=== PATIENT | male | born 1950 | race Caucasian/White ===

== ENCOUNTER → 2018-08-01 08:03 | Outpatient (POV) | payer MEDICARE, BC, SELFPAY | PROVIDERS: Visit Provider Dentist | DX: Z00.00 Encounter for general adult medical examination without abnormal findings (principal) ==

== ENCOUNTER 2018-12-05 17:00 | Inpatient (IN) ==
--- NOTE | 2018-12-05 17:35 | Emergency Department Note ---
ED Disposition Clinical Impression: Pneumonia Disposition: Admitted As Inpatient Condition on Discharge: Fair Time of Disposition: 20:30 - Critical Care Critical Care Time: No Attestation: On 12/05/18, the high probability of a clinically significant, sudden or life threatening deterioration of the following system(s) required my full and direct attention, intervention and personal management. The time I documented below is in addition to time spent performing reported procedures but includes the fo llowing listed in this critical care notation. Medical Decision Making - Medical Records Medical records reviewed: Yes: I reviewed the patient's medical records. - Aaron Inquiry Pt receiving controlled substance: No Aaron was queried for this patient: No Vital Signs: 12/05/18 17:04 12/05/18 18:09 12/05/18 20:00 Temperature 97.5 F L Temperature Source Oral Pulse Rate Pulse Rate [Right Radial] 84 77 78 Respiratory Rate 24 18 15 Blood Pressure Blood Pressure [Right Arm] 166/79 H 147/80 H 148/77 H Blood Pressure Mean [Right Arm] 108 102 100 Blood Pressure Source Blood Pressure Source [Right Arm] Automatic Cuff Blood Pressure Position Blood Pressure Position [Right Arm] Sitting 02 Sat by Pulse Oximetry 93 L 94 L 89 L Oxygen Delivery Method Nasal Cannula Nasal Cannula Oxygen Flow Rate (LPM) 4 4 12/05/18 20:43 12/05/18 20:46 Temperature 97.7 F Temperature Source Temporal Artery Scan Pulse Rate 89 Pulse Rate [Right Radial] Respiratory Rate 18 Blood Pressure 151/83 H Blood Pressure [Right Arm] Blood Pressure Mean [Right Arm] Blood Pressure Source Automatic Cuff Blood Pressure Source [Right Arm] Blood Pressure Position Sitting Blood Pressure Position [Right Arm] 02 Sat by Pulse Oximetry 93 L Oxygen Delivery Method Nasal Cannula Nasal Cannula Oxygen Flow Rate (LPM) 4 4 - Lab Data Lab results reviewed: Yes: I reviewed the patient's lab results. Lab Results 12/05/18 17:25: WBC 7.4, RBC 3.61 L, Hgb 11.7 L, Hct 35.8 L, MCV 99.3 H, MCH 32 .4 H, MCHC 32.6, RDW 14.2, Plt Count 387, MPV 6.9 L, Neut % (Auto) 69.6, Lymph % (Auto) 15.6, [place] % (Auto) 10.5 H, Eos % (Auto) 3.9, Baso % (Auto) 0.5, Neut # (Auto) 5.2, Lymph # (Auto) 1.2, [place] # (Auto) 0.8, Eos # (Auto) 0.3, Baso # (A uto) 0.0 12/05/18 17:25: Sodium 136, Potassium 4.3, Chloride 101, Carbon Dioxide 22, Anion Gap 17.3 H, BUN 18, Creatinine 0.88, Estimated Creat Clear 84, Estimated GFR 87, Est GFR ( Amer) 105, Glucose 97, Calcium 8.7, Total Bilirubin 0.9, AST 33, ALT 14, Alkaline Phosphatase 79, Total Protein 7.2, Albumin 2.6 L, Globulin 4.6 H, Albumin/Globulin Ratio 0.6 L 12/05/18 17:25: Lactate 1.2 Result diagrams: 12/08/18 07:05 12/08/18 07:05 Orders (Tests/Meds): ED MEDICATIONS Generic Name Dose Route Start Last Admin Trade Name Freq PRN Reason Stop Dose Admin Acetaminophen 650 mg 12/05/18 21:02 Acetaminophen 325mg Tab PO 01/04/19 21:01 Q4HP PRN As Needed for Fever or Pain Albuterol/Ipratropium 3 ml 12/05/18 21:02 12/09/18 13:47 Duoneb 3ml Neb IH 01/04/19 21:01 3 ml QID LAKE Administration Guaifenesin 1,200 mg 12/08/18 09:00 12/09/18 08:01 Mucinex 600mg Tablet PO 01/07/19 08:59 1,200 mg BID LAKE Administration Levofloxacin/Dextrose 750 mg in 150 mls @ 100 mls/hr 12/06/18 21:00 12/08/18 21:39 Levofloxacin 750mg/150ml Premix IV 12/19/18 20:59 100 mls/hr Q24H LAKE Administration Protocol Piperacillin Sod/Tazobactam 100 mls @ 200 mls/hr 12/06/18 02:30 12/09/18 14:21 Sod 4.5 gm/ Sodium Chloride IV 12/19/18 20:29 200 mls/hr Q6H LAKE Administration Protocol Insulin Human Lispro 0 unit 12/07/18 11:00 12/09/18 11:50 Humalog 100 Units/Ml 3ml Vial (Ssi) SQ 01/06/19 10:59 Not Given ACHS LAKE Protocol Pt's Own Med 100 mg 12/06/18 09:00 12/09/18 08:00 Lorlatinib [Lorbrena PO 01/05/19 08:59 100 mg ] 100 Mg DAILY LAKE Administration Ondansetron HCl 4 mg 12/05/18 21:02 Zofran 4mg/2ml Vial IV 01/04/19 21:01 Q8HP PRN Nausea Sodium Chloride 10 ml 12/05/18 21:02 Saline Flush 10ml Syringe IV 01/04/19 17:16 NEEDED PRN Maintain IV Site Sodium Chloride 3 ml 12/06/18 06:57 Sodium Chloride 3% 15ml Neb IH 01/05/19 06:56 ONCE PRN INDUCE SPUTUM COLLECTION Tramadol HCl 50 mg 12/05/18 22:19 Ultram 50mg Tablet PO 01/04/19 22:18 DAILYP PRN MODERATE PAIN Discontinued Medications Generic Name Dose Route Start Last Admin Trade Name Freq PRN Reason Stop Dose Admin Levofloxacin/Dextrose 750 mg in 150 mls @ 100 mls/hr 12/05/18 20:30 12/05/18 23:01 Levofloxacin 750mg/150ml Premix IV 12/19/18 20:29 100 mls/hr Q24H LAKE Administration Protocol Piperacillin Sod/Tazobactam 100 mls @ 200 mls/hr 12/05/18 20:30 12/05/18 20:28 Sod 4.5 gm/ Sodium Chloride IV 12/19/18 20:29 200 mls/hr Q6H LAKE Administration Protocol Sodium Chloride 1,000 mls @ 125 mls/hr 12/05/18 21:02 12/07/18 00:35 Sod Chlor 0.9% 1000ml Bag IV 01/04/19 21:01 Not Given .Q8H LAKE Ioversol 70 ml 12/05/18 18:42 12/05/18 18:45 Rad-Optiray 350 100ml Vial IV 12/05/18 18:43 70 ml ONCE ONE Administration Methylprednisolone Sodium Succinate 60 mg 12/05/18 21:02 12/06/18 05:55 Methylprednisolone Sod Succinate 40mg Vial IV 01/04/19 21:01 60 mg Q8H LAKE Administration Methylprednisolone Sodium Succinate 60 mg 12/06/18 11:00 12/09/18 02:02 Solu-Medrol 125mg/2ml Vial IV 01/05/19 10:59 60 mg Q8H LAKE Administration Pt's Own Med 2 puff 12/05/18 21:02 12/07/18 08:52 Budesonide/ INHALATION 01/04/19 21:01 Not Given Formoterol Fumarate BID LAKE [Symbicort] 160-4.5 Mcg Inhaler Sodium Chloride 10 ml 12/05/18 17:17 Saline Flush 10ml Syringe IV 01/04/19 17:16 NEEDED PRN Maintain IV Site Sodium Chloride 40 ml 12/05/18 18:42 12/05/18 18:45 Rad-Ns 50ml Vial IV 12/05/18 18:43 40 ml ONCE ONE Administration Sodium Chloride 10 ml 12/05/18 18:42 12/05/18 18:45 Rad-Saline Flush 10ml Syringe IV 12/05/18 18:43 10 ml ONCE ONE Administration ORDERS Category Date Time Status Blood Culture Stat Micro 12/05/18 17:25 Results EKG Request [ECG Request by Dr/Nse] Stat Y 12/05/18 18:40 Stop Req General Adult HPI - General Chief complaint: Shortness of Breath/Dyspnea Stated complaint: shortness of breath Time Seen by Provider: 12/05/18 17:32 Mode of Arrival: EMS Limitations: No Limitations Description of Symptoms (Recalled from ER Triage Doc. by RN): pt states he was having increasing shortness of breath on exertion today. pt states he has cancer and is not on home oxygen. per stone finisher pt room air oxygen was 79%. - History of Present Illness HPI narrative: Cancer patient, low sats and dyspnea worsening over two weeks. Has completed chemo-radiation. He's not sure of tissue pathology of his primary. Has never required home O2 - Related Data Home Medications Medication Instructions Recorded Confirmed Budesonide/Formoterol Fumarate 2 puff INHALATION BID 12/05/18 12/06/18 [Symbicort 160-4.5 Mcg Inhaler] Lorlatinib [Lorbrena] 100 mg PO DAILY 12/05/18 12/06/18 RX: Tramadol HCl [Tramadol 50mg 50 mg PO DAILYP PRN 12/05/18 12/06/18 Tab] Allergies Allergy/AdvReac Type Severity Reaction Status Date / Time No Known Allergies Allergy Verified 12/05/18 17:10 [facility] History - Hepatitis A Screen Drug use history?: No High risk sexual behaviors?: No History of sexually transmitted infection?: No Currently employed?: No Childcare worker?: No Do you have indoor plumbing?: Yes Do you have electricity?: Yes Attestation statement:: This patient has been screened for Hepatitis A risk factors. I have reviewed the patient's past medical history: Yes Medical History: Denies:: Cancer, Diabetes Mellitus Type 1, Diabetes Mellitus Type 2, MRSA Amputation: No Fractures: No - Social History Smoking Status: Never smoker Alcohol Intake: never Occupational Status: retired - Psychiatric History Expresses thoughts of harming self/others: None Suicide Plan Description: No Plan ROS Obtained: Yes All systems reviewed & no additional complaints - Constitutional Constitutional: Denies chills, Denies fever(s) - Eyes Eyes: Reports system reviewed and no additional complaints, except as docu, Denies change in vision - ENT Ears, Nose, Mouth, and Throat: Reports system reviewed and no additional complaints, except as docu, Denies sore throat, Denies throat swelling - Cardiovascular Cardiovascular: Reports system reviewed and no additional complaints, except as docu, Denies chest pain, Denies chest pain at rest, Reports dyspnea - Respiratory Respiratory: Yes system reviewed and no additional complaints, except as docu, No chest congestion, No cough, Yes dyspnea, Yes dyspnea on exertion - Gastrointestinal Gastrointestingal: Reports: system reviewed and no additional complaints, except as docu. Denies: abdominal pain, diarrhea, nausea, vomiting - Musculoskeletal Musculoskeletal: Denies joint stiffness, Denies joint swelling, Denies limited range of motion, Denies muscle weakness, Denies stiffness, Denies tingling - Integumentary/Breasts Skin/Breast: Denies rash - Neurologic Neurologic: Reports system reviewed and no additional complaints, except as docu, Denies headache(s), Denies loss of vision, Denies tingling/numbness/burning sensations Physical Exam - General General appearance: alert, in distress, other (mildly dyspneic lying down) - Head Head exam: atraumatic, normocephalic, normal inspection - Eye Eye exam: Present: normal appearance, PERRL, EOMI - ENT ENT exam: Present: normal exam, normal oropharynx, mucous membranes moist, TM's normal bilaterally, normal external ear exam - Neck Neck exam: Present: normal inspection, full ROM, trachea midline. Absent: meningismus, lymphadenopathy - Chest Chest inspection: Present: normal inspection, symmetric chest wall rise. Absent: tenderness - Respiratory Respiratory exam: Present: normal lung sounds bilaterally, respiratory distress (mild). Absent: wheezes, accessory muscle use, prolonged expiratory phase - Cardiovascular Cardiovascular exam: Present: regular rate, normal rhythm. Absent: JVD - Abdominal Exam Abdominal exam: Present: soft, normal bowel sounds. Absent: distention, tenderness, guarding - Extremities Exam Extremities exam: Present: normal inspection, full ROM, normal capillary refill. Absent: calf tenderness - Back Exam Back exam: Present: normal inspection. Absent: tenderness - Neurological Exam Neurological exam: Present: alert, oriented X3 - Psychiatric Psychiatric exam: Present: normal affect, normal mood
[2018-12-05 17:46] LABS: Basophils % 0.5 % (0.1-2.0); Eosinophils # 0.3 K/mm3 (0.0-0.4); Eosinophils % 3.9 % (0.1-12.0); Hematocrit 35.8 % (42.0-52.0); Hemoglobin 11.7 g/dL (14.1-18.0); Lymphocytes # 1.2 K/mm3 (0.7-4.5); Lymphocytes % 15.6 % (10-50); Mean Corpuscular HGB Conc 32.6 g/dL (31.8-35.4); Mean Corpuscular Hemoglobin 32.4 pg (27.0-31.2); Mean Corpuscular Volume 99.3 fl (80-94); Mean Platelet Volume 6.9 fl (7.4-10.4); Monocytes # 0.8 K/mm3 (0.1-1.0); Monocytes % 10.5 % (1.7-9.3); Neutrophils # 5.2 K/mm3 (1.8-7.8); Neutrophils % 69.6 % (37.0-80.0); Platelet Count 387 K/mm3 (142-424); Red Blood Count 3.61 M/mm3 (4.60-6.20); Red Cell Distribution Width 14.2 % (11.5-17.5); White Blood Count 7.4 K/mm3 (4.8-10.8)
[2018-12-05 18:01] LABS: Albumin Level 2.6 gm/dL (3.4-5.0); Albumin/Globulin Ratio 0.6 (1.1-1.8); Anion Gap 17.3 mEq/L (5-15); Bilirubin,Total 0.9 mg/dL (0.2-1.0); Calcium 8.7 mg/dL (8.5-10.1); Globulin 4.6 gm/dl (1.3-3.2); Potassium 4.3 mmoL/L (3.5-5.1); Total Protein,Serum 7.2 gm/dL (6.4-8.2)
[2018-12-06 07:31] LABS: Basophils % 0.1 % (0.1-2.0); Eosinophils % 0.2 % (0.1-12.0); Hematocrit 35.7 % (42.0-52.0); Hemoglobin 11.2 g/dL (14.1-18.0); Lymphocytes # 0.4 K/mm3 (0.7-4.5); Lymphocytes % 9.9 % (10-50); Mean Corpuscular HGB Conc 31.4 g/dL (31.8-35.4); Mean Corpuscular Hemoglobin 32.5 pg (27.0-31.2); Mean Corpuscular Volume 103.5 fl (80-94); Mean Platelet Volume 6.9 fl (7.4-10.4); Monocytes # 0.1 K/mm3 (0.1-1.0); Monocytes % 1.7 % (1.7-9.3); Neutrophils # 3.4 K/mm3 (1.8-7.8); Neutrophils % 88.1 % (37.0-80.0); Platelet Count 355 K/mm3 (142-424); Red Blood Count 3.45 M/mm3 (4.60-6.20); Red Cell Distribution Width 14.1 % (11.5-17.5); White Blood Count 3.8 K/mm3 (4.8-10.8)
--- NOTE | 2018-12-06 07:31 | Pharmacy Consult Notes ---
[facility] Pharmacy VTE Monitoring - Patient Demographics Admission date: 12/06/18 Report Date: 12/06/18 Time: 07:31 Allergies/Adverse Reactions: Patient Allergies No Known Allergies Allergy (Verified 12/05/18 17:10) Height: 1.85 m Weight: 78.953 kg Patient Problems: Current Active Problems Pneumonia (Acute) - VTE Risk Labs: VTE Related Lab Results Hgb 11.7 g/dL (14.1-18.0) L 12/05/18 17:25 Hct 35.8 % (42.0-52.0) L 12/05/18 17:25 Plt Count 387 K/mm3 (142-424) 12/05/18 17:25 BUN 18 mg/dL (7-18) 12/05/18 17:25 Creatinine 0.88 mg/dL (0.70-1.30) 12/05/18 17:25 Estimated Creat Clear 84 mL/min (50-200) 12/05/18 17:25 Was VTE Risk Assessment Performed: Yes VTE Score: 6 VTE Risk Level: Moderate Risk Clinical Trial Participant: No - Prophylaxis VTE Prophylaxis Ordered?: Yes Types of VTE Prophylaxis: TEDS Knee High
[2018-12-06 07:37] LABS: Anion Gap 15.2 mEq/L (5-15); Calcium 8.7 mg/dL (8.5-10.1); Potassium 4.2 mmoL/L (3.5-5.1)
--- NOTE | 2018-12-06 07:37 | History & Physical Report ---
*Admission Date: 12/06/18 *Chief complaint: Shortness of breath *History of present illness: 68-year-old male with metastatic cancer of unknown primary presented to the emergency department with at least 2 weeks of progressive shortness of breath. Patient denies fevers, chills. He admits he has had a minor cough with yellowish brown sputum production. Apparently he had been seen in the office about 48 hours prior to presentation and given a Symbicort inhaler to use. Patient has metastatic cancer with unknown primary although over the course of his disease he has been treated as if lung cancer is the primary. He has been on various oral and intravenous chemotherapies. He admits more recently he is lacked energy although responds briefly to vitamin B12 injections. His oncologist is Dr. Sanchez. [facility] History I have reviewed the patient's past medical history: Yes Medical History: Denies:: Cancer, Diabetes Mellitus Type 1, Diabetes Mellitus Type 2, Internal Pacemaker, MRSA *Have you ever received a pneumonia vaccine?: Yes (3 years ago) *Have you received a flu vaccine this season?: Yes Other Surgeries: No: Pacemaker Amputation: No Fractures: No - *Social History Educational Level: Completed College Smoking Status: Never smoker Alcohol Intake: never *Occupational Status:: retired Housing: house *Travel in the last 8 weeks: None - Psychiatric History Expresses thoughts of harming self/others: None Suicide Plan Description: No Plan Family Hx:: Non-contributory Review of Systems - Review of Systems Review of systems:: pertinent systems reviewed and negative unless documented below - Constitutional Reports fatigue, Denies body ache(s), Denies chills, Denies fever(s) - ENT Denies abnormal hearing - *Cardiovascular Denies chest pain, Denies chest pain at rest, Denies chest pain with activity - *Respiratory Reports change in phlegm color, Reports cough, Reports shortness of breath, Reports shortness of breath with activity - *Gastrointestinal Denies abdominal pain, Denies belching, Denies bloating - *Genitourinary Denies difficulty urinating - *Neurologic Denies headache(s), Denies loss of vision, Denies tingling/numbness/burning sensations, Denies tingling Meds Home Medications Medication Instructions Recorded Confirmed Type Budesonide/Formoterol Fumarate 2 puff INHALATION BID 12/05/18 12/06/18 History [Symbicort 160-4.5 Mcg Inhaler] Lorlatinib [Lorbrena] 100 mg PO DAILY 12/05/18 12/06/18 History Tramadol HCl [Tramadol 50mg 50 mg PO DAILYP PRN 12/05/18 12/06/18 History Tab] Allergies Allergy/AdvReac Type Severity Reaction Status Date / Time No Known Allergies Allergy Verified 12/05/18 17:10 Exam Vital signs and Labs for Last 24 Hours: Temp Pulse Resp BP Pulse Ox 97.9 F 88 20 109/51 L 91 L 12/06/18 04:00 12/06/18 06:17 12/06/18 04:00 12/06/18 04:00 12/06/18 06:17 Laboratory Results - last 24 hr 12/05/18 17:25: WBC 7.4, RBC 3.61 L, Hgb 11.7 L, Hct 35.8 L, MCV 99.3 H, MCH 32.4 H, MCHC 32.6, RDW 14.2, Plt Count 387, MPV 6.9 L, Neut % (Auto) 69.6, Lymph % (Auto) 15.6, [place] % (Auto) 10.5 H, Eos % (Auto) 3.9, Baso % (Auto) 0.5, Neut # (Auto) 5.2, Lymph # (Auto) 1.2, [place] # (Auto) 0.8, Eos # (Auto) 0.3, Baso # (Auto) 0.0 12/05/18 17:25: Sodium 136, Potassium 4.3, Chloride 101, Carbon Dioxide 22, Anion Gap 17.3 H, BUN 18, Creatinine 0.88, Estimated Creat Clear 84, Estimated GFR 87, Est GFR ( Amer) 105, Glucose 97, Calcium 8.7, Total Bilirubin 0.9, AST 33, ALT 14, Alkaline Phosphatase 79, Total Protein 7.2, Albumin 2.6 L, Globulin 4.6 H, Albumin/Globulin Ratio 0.6 L 12/05/18 17:25: Lactate 1.2 I & O for Last 24 hours: Intake & Output 12/03/18 12/04/18 12/05/18 12/06/18 11:59 11:59 11:59 11:59 Intake Total 240 / 240 Balance 240 / 240 Weight 174 lb 1 oz Narrative: Patient appears comfortable sitting up in bed. ENT exam is normal. Neck is without jugular venous distention or lymphadenopathy. Lungs have bibasilar rales left more audible than right. Heart has a regular rate and rhythm. Abdomen is soft and nontender. Neurologically motor and sensation function is intact. Cranial nerves are grossly intact. Skin is warm and without lesions Assessment and Plan (1) Disseminated malignancy of unknown primary Current visit: Yes Status: Acute Category: Medical Code(s): C80.0 - Disseminated malignant neoplasm, unspecified; C80.1 - Malignant (primary) neoplasm, unspecified (2) Pneumonia Current visit: Yes Status: Acute Category: Medical Code(s): J18.9 - Pneumonia, unspecified organism - Assessment and plan all Dx Assessment and Plan for all problems:: Patient has been started on broad-spectrum antibiotics. Incentive spirometer will be added. Encourage ambulation as tolerated
[2018-12-06 11:07] LABS: Lymphocytes % 8 % (10-50); Monocytes % 1 % (2-9); Neutrophils % 91 % (42-76); Total Cells Counted 100
[2018-12-06 11:08] LABS: Macrocytosis 1+
[2018-12-07 07:04] LABS: Hematocrit 38.3 % (42.0-52.0); Hemoglobin 12.3 g/dL (14.1-18.0); Lymphocytes # 0.8 K/mm3 (0.7-4.5); Lymphocytes % 6.1 % (10-50); Mean Corpuscular HGB Conc 32.1 g/dL (31.8-35.4); Mean Corpuscular Hemoglobin 32.7 pg (27.0-31.2); Mean Corpuscular Volume 102.1 fl (80-94); Mean Platelet Volume 7.3 fl (7.4-10.4); Monocytes # 0.5 K/mm3 (0.1-1.0); Monocytes % 3.3 % (1.7-9.3); Neutrophils # 12.3 K/mm3 (1.8-7.8); Neutrophils % 90.5 % (37.0-80.0); Platelet Count 462 K/mm3 (142-424); Red Blood Count 3.75 M/mm3 (4.60-6.20); White Blood Count 13.5 K/mm3 (4.8-10.8)
--- NOTE | 2018-12-07 07:17 | Progress Note ---
Internal Medicine - PN: Subj *Date: 12/07/18 *Time: 07:14 Interval history: Patient has no specific complaints. He did not sleep well due to sleeping in an unfamiliar bed. He believes his cough is becoming a little more productive. He is still not had any fevers or chills. O2 sats remained in the low to mid 90s on 4 L of oxygen via nasal cannula. He is using the incentive spirometer regularly. He continues to have shortness of breath on exertion although admits at rest he is feeling a little bit more comfortable Exam Vital signs and Labs for Last 24 Hours: Temp Pulse Resp BP Pulse Ox 97.7 F 84 18 117/73 93 L 12/07/18 04:00 12/07/18 06:43 12/07/18 04:00 12/07/18 04:00 12/07/18 06:43 Laboratory Results - last 24 hr 12/06/18 06:55: WBC 3.8 L D, RBC 3.45 L, Hgb 11.2 L, Hct 35.7 L, MCV 103.5 H, MCH 32.5 H, MCHC 31.4 L, RDW 14.1, Plt Count 355, MPV 6.9 L, Neut % (Auto) 88.1 H, Lymph % (Auto) 9.9 L, [place] % (Auto) 1.7, Eos % (Auto) 0.2, Baso % (Auto) 0.1, Neut # (Auto) 3.4, Lymph # (Auto) 0.4 L, [place] # (Auto) 0.1, Eos # (Auto) 0.0, Baso # (Auto) 0.0, Total Counted 100, Neutrophils % (Manual) 91 H, Lymphocytes % (Manual) 8 L, Monocytes % (Manual) 1 L, Platelet Estimate Normal, Macrocytosis 1+ 12/06/18 06:55: Sodium 135 L, Potassium 4.2, Chloride 102, Carbon Dioxide 22, Anion Gap 15.2 H, BUN 16, Creatinine 0.97, Estimated Creat Clear 81, Estimated GFR 77, Est GFR ( Amer) 94, Glucose 254 H D, Calcium 8.7 12/07/18 06:48: WBC 13.5 H D, RBC 3.75 L, Hgb 12.3 L, Hct 38.3 L, MCV 102.1 H, MCH 32.7 H, MCHC 32.1, RDW 14.0, Plt Count 462 H D, MPV 7.3 L, Neut % (Auto) 90 .5 H, Lymph % (Auto) 6.1 L, [place] % (Auto) 3.3, Eos % (Auto) 0.0 L, Baso % (Auto) 0.0 L, Neut # (Auto) 12.3 H, Lymph # (Auto) 0.8, [place] # (Auto) 0.5, Eos # (Auto) 0.0, Baso # (Auto) 0.0 I & O for Last 24 hours: Intake & Output 12/04/18 12/05/18 12/06/18 12/07/18 11:59 11:59 11:59 11:59 Intake Total 960 / 960 1110 / 1110 Balance 960 / 960 1110 / 1110 Weight 174 lb 1 oz 174 lb 0.985 oz Microbiology Reports for the Last 24 Hours: Microbiology 12/05/18 23:17 Sputum - Expectorated Sputum Gram Stain - Final Narrative: He does not appear to be in any distress. Although with conversation he does become a little dyspneic. Heart is slightly tachycardic this morning. Lungs are clear with only faint rales at the left lung base Assessment and Plan (1) Disseminated malignancy of unknown primary Current visit: Yes Status: Acute Category: Medical Code(s): C80.0 - Disseminated malignant neoplasm, unspecified; C80.1 - Malignant (primary) neoplasm, unspecified (2) Pneumonia Current visit: Yes Status: Acute Category: Medical Code(s): J18.9 - Pneumonia, unspecified organism Repeat chest x-ray today (3) Hyperglycemia Current visit: Yes Status: Acute Category: Medical Code(s): R73.9 - Hyperglycemia, unspecified Begin regular fingersticks
[2018-12-07 07:28] LABS: Lymphocytes % 4 % (10-50); Macrocytosis 1+; Monocytes % 3 % (2-9); Neutrophils % 93 % (42-76); Total Cells Counted 100
[2018-12-08 07:16] LABS: Basophils % 0.1 % (0.1-2.0); Hemoglobin 11.4 g/dL (14.1-18.0); Lymphocytes # 0.7 K/mm3 (0.7-4.5); Lymphocytes % 6.1 % (10-50); Mean Corpuscular HGB Conc 31.7 g/dL (31.8-35.4); Mean Corpuscular Hemoglobin 32.2 pg (27.0-31.2); Mean Corpuscular Volume 101.3 fl (80-94); Mean Platelet Volume 7.7 fl (7.4-10.4); Monocytes # 0.3 K/mm3 (0.1-1.0); Monocytes % 3.1 % (1.7-9.3); Neutrophils # 9.6 K/mm3 (1.8-7.8); Neutrophils % 90.7 % (37.0-80.0); Platelet Count 400 K/mm3 (142-424); Red Blood Count 3.56 M/mm3 (4.60-6.20); White Blood Count 10.6 K/mm3 (4.8-10.8)
[2018-12-08 07:24] LABS: Calcium 9.1 mg/dL (8.5-10.1); Lymphocytes % 8 % (10-50); Neutrophils % 88 % (42-76); Total Cells Counted 100
[2018-12-08 07:25] LABS: Macrocytosis 2+
--- NOTE | 2018-12-08 07:35 | Progress Note ---
Internal Medicine - PN: Subj *Date: 12/08/18 *Time: 07:32 Interval history: Patient reports feeling better while at rest. Short trips to the bathroom still leave the patient exhausted and quite dyspneic. On 3 L of oxygen he is satting anywhere from the very low 90s to the mid 80s. Sputum has been described as rust colored. Patient's appetite is good. Exam Vital signs and Labs for Last 24 Hours: Temp Pulse Resp BP Pulse Ox 97.0 F L 88 20 123/73 81 L 12/08/18 04:00 12/08/18 06:45 12/08/18 04:00 12/08/18 04:00 12/08/18 06:45 Laboratory Results - last 24 hr 12/07/18 11:27: POC Glucose 135 H 12/07/18 16:47: POC Glucose 185 H 12/07/18 20:02: POC Glucose 140 H 12/08/18 06:21: POC Glucose 129 H 12/08/18 07:05: WBC 10.6, RBC 3.56 L, Hgb 11.4 L, Hct 36.0 L, MCV 101.3 H, MCH 32.2 H, MCHC 31.7 L, RDW 14.0, Plt Count 400, MPV 7.7, Neut % (Auto) 90.7 H, Lymph % (Auto) 6.1 L, [place] % (Auto) 3.1, Eos % (Auto) 0.0 L, Baso % (Auto) 0.1, Neut # (Auto) 9.6 H, Lymph # (Auto) 0.7, [place] # (Auto) 0.3, Eos # (Auto) 0.0, Baso # (Auto) 0.0, Total Counted 100, Neutrophils % (Manual) 88 H, Band Neutrophils % 4.0, Lymphocytes % (Manual) 8 L, Hypersegmented Neuts 2+, Platelet Estimate Normal, Macrocytosis 2+ 12/08/18 07:05: Sodium 140, Potassium 4.0, Chloride 106, Carbon Dioxide 22, Anion Gap 16.0 H, BUN 15, Creatinine 0.99, Estimated Creat Clear 81, Estimated GFR 76, Est GFR ( Amer) 92, Glucose 146 H, Calcium 9.1 I & O for Last 24 hours: Intake & Output 12/05/18 12/06/18 12/07/18 12/08/18 11:59 11:59 11:59 11:59 Intake Total 960 / 960 1620 / 1620 1390 / 1390 Balance 960 / 960 1620 / 1620 1390 / 1390 Weight 174 lb 1 oz 174 lb 0.985 oz Microbiology Reports for the Last 24 Hours: Microbiology 12/05/18 23:17 Sputum - Expectorated Sputum Gram Stain - Final 12/05/18 23:17 Sputum - Expectorated Sputum Sputum Culture - Final Normal Respiratory [place] 12/05/18 17:25 Blood Blood Culture - Preliminary NO GROWTH AFTER 48 HOURS 12/05/18 17:25 Blood Blood Culture - Preliminary NO GROWTH AFTER 48 HOURS Radiology Reports for the Last 24 Hours: Chest x-ray shown improvement in infiltrates on the left side with similar appearing infiltrates on the right side compared to admission Narrative: He looks comfortable while seated in bed. The mild conversational dyspnea that was present yesterday is not present today. Lung exam reveals diffuse rales heard anteriorly and posteriorly from the mid chest to the bases. Heart has a regular rate and rhythm Assessment and Plan (1) Pneumonia Current visit: Yes Status: Acute Category: Medical Code(s): J18.9 - Pneumonia, unspecified organism Sputum culture is negative. Blood cultures are negative. Patient is still requiring 3-4 L of oxygen via nasal cannula and is quite weak. Continue IV antibiotics. Encourage patient to ambulate a little bit more today. Continue nebs. Will add on some Mucinex (2) Disseminated malignancy of unknown primary Current visit: Yes Status: Acute Category: Medical Code(s): C80.0 - Disseminated malignant neoplasm, unspecified; C80.1 - Malignant (primary) neoplasm, unspecified (3) Hyperglycemia Current visit: Yes Status: Acute Category: Medical Code(s): R73.9 - Hyperglycemia, unspecified
--- NOTE | 2018-12-09 07:06 | Progress Note ---
Internal Medicine - PN: Subj *Date: 12/09/18 *Time: 07:04 Interval history: Patient reports feeling about the same as he did 24 hours ago. He continues to have cough with a sputum described as creamy mixed with occasional blood. He still gets short of breath with ambulation to the bathroom and sometimes even moving around in the bed. He is maintaining his O2 sats in the low 90s on 3 L of oxygen. Exam Vital signs and Labs for Last 24 Hours: Temp Pulse Resp BP Pulse Ox 97.9 F 90 20 130/74 89 L 12/09/18 03:48 12/09/18 05:56 12/09/18 03:48 12/09/18 03:48 12/09/18 05:56 Laboratory Results - last 24 hr 12/08/18 07:05: WBC 10.6, RBC 3.56 L, Hgb 11.4 L, Hct 36.0 L, MCV 101.3 H, MCH 32.2 H, MCHC 31.7 L, RDW 14.0, Plt Count 400, MPV 7.7, Neut % (Auto) 90.7 H, Lymph % (Auto) 6.1 L, [place] % (Auto) 3.1, Eos % (Auto) 0.0 L, Baso % (Auto) 0.1, Neut # (Auto) 9.6 H, Lymph # (Auto) 0.7, [place] # (Auto) 0.3, Eos # (Auto) 0.0, Baso # (Auto) 0.0, Total Counted 100, Neutrophils % (Manual) 88 H, Band Neutrophils % 4.0, Lymphocytes % (Manual) 8 L, Hypersegmented Neuts 2+, Platelet Estimate Normal, Macrocytosis 2+ 12/08/18 07:05: Sodium 140, Potassium 4.0, Chloride 106, Carbon Dioxide 22, Anion Gap 16.0 H, BUN 15, Creatinine 0.99, Estimated Creat Clear 81, Estimated GFR 76, Est GFR ( Amer) 92, Glucose 146 H, Calcium 9.1 12/08/18 11:27: POC Glucose 244 H 12/08/18 16:49: POC Glucose 136 H 12/08/18 20:39: POC Glucose 170 H 12/09/18 06:16: POC Glucose 111 H I & O for Last 24 hours: Intake & Output 12/06/18 12/07/18 12/08/18 12/09/18 11:59 11:59 11:59 11:59 Intake Total 960 / 960 1620 / 1620 2019 830 / 830 Balance 960 / 960 1620 / 1620 2019 830 / 830 Weight 174 lb 1 oz 174 lb 0.985 oz Microbiology Reports for the Last 24 Hours: Microbiology 12/05/18 23:17 Sputum - Expectorated Sputum Gram Stain - Final 12/05/18 23:17 Sputum - Expectorated Sputum Sputum Culture - Final Normal Respiratory Alba Narrative: This morning he looks well. On lung exam he is diminished anteriorly with bibasilar rales. Heart has a regular rate and rhythm Assessment and Plan (1) Pneumonia Current visit: Yes Status: Acute Category: Medical Code(s): J18.9 - Pneumonia, unspecified organism (2) Disseminated malignancy of unknown primary Current visit: Yes Status: Acute Category: Medical Code(s): C80.0 - Disseminated malignant neoplasm, unspecified; C80.1 - Malignant (primary) neoplasm, unspecified (3) Hyperglycemia Current visit: Yes Status: Acute Category: Medical Code(s): R73.9 - Hyperglycemia, unspecified - Assessment and plan all Dx Assessment and Plan for all problems:: Repeat chest x-ray today. Had a discussion with the patient as I do think it will take some time for him to recover from this illness. If chest x-ray showing improvement in that right lung we will begin discussion of discharge plan. If right lung remains unchanged will consult Dr. Jimenez for tomorrow
--- NOTE | 2018-12-09 08:24 | Progress Note ---
Internal Medicine - PN: Subj *Date: 12/09/18 *Time: 08:24 Exam Vital signs and Labs for Last 24 Hours: Temp Pulse Resp BP Pulse Ox 97.9 F 90 20 130/74 89 L 12/09/18 03:48 12/09/18 05:56 12/09/18 03:48 12/09/18 03:48 12/09/18 05:56 Laboratory Results - last 24 hr 12/08/18 11:27: POC Glucose 244 H 12/08/18 16:49: POC Glucose 136 H 12/08/18 20:39: POC Glucose 170 H 12/09/18 06:16: POC Glucose 111 H I & O for Last 24 hours: Intake & Output 12/06/18 12/07/18 12/08/18 12/09/18 23:59 23:59 23:59 23:59 Intake Total 1830 / 1830 1940 / 1940 1310 / 1310 350 / 350 Balance 1830 / 1830 1940 / 1940 1310 / 1310 350 / 350 Weight 78.953 kg Microbiology Reports for the Last 24 Hours: Microbiology 12/05/18 23:17 Sputum - Expectorated Sputum Gram Stain - Final 12/05/18 23:17 Sputum - Expectorated Sputum Sputum Culture - Final Normal Respiratory Alba Assessment and Plan (1) Pneumonia Current visit: Yes Status: Acute Category: Medical Code(s): J18.9 - Pneumonia, unspecified organism (2) Disseminated malignancy of unknown primary Current visit: Yes Status: Acute Category: Medical Code(s): C80.0 - Disseminated malignant neoplasm, unspecified; C80.1 - Malignant (primary) neoplasm, unspecified (3) Hyperglycemia Current visit: Yes Status: Acute Category: Medical Code(s): R73.9 - Hyperglycemia, unspecified The patient's infection will respond to the chosen ABx?: Yes Is the patient receiving the right drug, dose, and route?: Yes Could a more targeted ABx be ordered?: No
--- NOTE | 2018-12-10 07:15 | Progress Note ---
Internal Medicine - PN: Subj *Date: 12/10/18 *Time: 07:13 Interval history: Patient had a rough night. He has developed pretty significant nasal congestion and a sore throat. The nasal congestion makes it difficult to use the nasal cannula and he is mouth breathing. This is leading to a decrease in his oxygen sats that dipped to the mid 60s with ambulating to the bathroom. His chest x- ray yesterday showed continued improvement on the left but very little change in the right lung. Exam Vital signs and Labs for Last 24 Hours: Temp Pulse Resp BP Pulse Ox 97.7 F 84 22 126/68 88 L 12/10/18 04:00 12/10/18 05:41 12/10/18 04:00 12/10/18 04:00 12/10/18 05:41 Laboratory Results - last 24 hr 12/09/18 11:27: POC Glucose 100 12/09/18 16:53: POC Glucose 101 12/09/18 21:06: POC Glucose 80 12/10/18 05:13: POC Glucose 88 I & O for Last 24 hours: Intake & Output 12/07/18 12/08/18 12/09/18 12/10/18 11:59 11:59 11:59 11:59 Intake Total 1620 / 1620 2019 1460 / 1460 830 / 830 Balance 1620 / 1620 2019 1460 / 1460 830 / 830 Weight 174 lb 0.985 oz 188 lb 0.869 oz Narrative: Patient looks discouraged this morning. Oropharynx reveals some thrush. Neck is without lymphadenopathy. Lung exam reveals fair aeration throughout all lung reynolds with continued rales in the bases right greater than left this morning Assessment and Plan (1) Pneumonia Current visit: Yes Status: Acute Category: Medical Code(s): J18.9 - Pneumonia, unspecified organism (2) Disseminated malignancy of unknown primary Current visit: Yes Status: Acute Category: Medical Code(s): C80.0 - Disseminated malignant neoplasm, unspecified; C80.1 - Malignant (primary) neoplasm, unspecified (3) Hyperglycemia Current visit: Yes Status: Acute Category: Medical Code(s): R73.9 - Hyperglycemia, unspecified - Assessment and plan all Dx Assessment and Plan for all problems:: 1. Based on his exam the patient seems to be improving. Based on the way he feels he is not improving as quickly as his exam would suggest. I am going to add vancomycin to see if that can help with the right lung. He will also be ordered Mucomyst neb to see if that can help with sputum clearance. 2. Nystatin for thrush 3. Ordered Chloraseptic's for his sore throat as well as Afrin nasal spray for his nasal congestion.
--- NOTE | 2018-12-10 08:25 | Pharmacy Consult Notes ---
- Pharmacy Consult Date: 12/10/18 Time: 08:23 Referring provider: DR. CASTRO Reason for Consult:: VANCOMYCIN DOSING Allergies and ADEs:: Allergies Allergy/AdvReac Type Severity Reaction Status Date / Time No Known Allergies Allergy Verified 12/05/18 17:10 Home Medications:: Home Medications Medication Instructions Recorded Confirmed Type Budesonide/Formoterol Fumarate 2 puff INHALATION BID 12/05/18 12/06/18 History [Symbicort 160-4.5 Mcg Inhaler] Lorlatinib [Lorbrena] 100 mg PO DAILY 12/05/18 12/06/18 History Tramadol HCl [Tramadol 50mg 50 mg PO DAILYP PRN 12/05/18 12/06/18 History Tab] Height: 1.85 m Weight: 85.3 kg Laboratory Results:: Laboratory Results - last 24 hr 12/09/18 11:27: POC Glucose 100 12/09/18 16:53: POC Glucose 101 12/09/18 21:06: POC Glucose 80 12/10/18 05:13: POC Glucose 88 Medical History: Denies:: Cancer, Diabetes Mellitus Type 1, Diabetes Mellitus Type 2, Internal Pacemaker, MRSA Assessment and Plan (1) Pneumonia Current visit: Yes Status: Acute Category: Medical Code(s): J18.9 - Pneumonia, unspecified organism (2) Disseminated malignancy of unknown primary Current visit: Yes Status: Acute Category: Medical Code(s): C80.0 - Disseminated malignant neoplasm, unspecified; C80.1 - Malignant (primary) neoplasm, unspecified (3) Hyperglycemia Current visit: Yes Status: Acute Category: Medical Code(s): R73.9 - Hyperglycemia, unspecified - Assessment and plan all Dx Assessment and Plan for all problems:: BASED ON PATIENT FACTORS, RECOMMEND VANCOMYCIN 1500 MG IV Q12H. WILL OBTAIN VANCOMYCIN TROUGH LEVEL PRIOR TO 4TH DOSE. PHARMACY WILL FOLLOW DAILY AND ADJUST APPROPRIATE.
--- NOTE | 2018-12-11 07:26 | Progress Note ---
Internal Medicine - PN: Subj *Date: 12/11/18 *Time: 07:25 Interval history: Patient's complaint this morning is of sinus congestion and pressure which she feels like it affects his ability to breathe through his nose and get quality oxygen via the cannula. He continues to have cough and now his sputum is bloody. He also has a very sore throat this morning. He has not however was better than the previous night. He has ambulated very little. Exam Vital signs and Labs for Last 24 Hours: Temp Pulse Resp BP Pulse Ox 98.2 F 88 17 141/73 H 87 L 12/11/18 04:00 12/11/18 05:51 12/11/18 04:00 12/11/18 04:00 12/11/18 05:51 Laboratory Results - last 24 hr 12/10/18 11:04: POC Glucose 97 12/10/18 16:36: POC Glucose 111 H 12/10/18 20:41: POC Glucose 108 12/11/18 06:15: POC Glucose 114 H I & O for Last 24 hours: Intake & Output 12/08/18 12/09/18 12/10/18 12/11/18 11:59 11:59 11:59 11:59 Intake Total 2019 1460 / 1460 1460 / 1460 2500 / 2500 Output Total 700 / 700 1700 / 1700 Balance 2019 1460 / 1460 760 / 760 800 / 800 Weight 188 lb 0.869 oz Microbiology Reports for the Last 24 Hours: Microbiology 12/05/18 17:25 Blood Blood Culture - Final NO GROWTH AFTER 5 DAYS 12/05/18 17:25 Blood Blood Culture - Final NO GROWTH AFTER 5 DAYS Narrative: He is in no distress and looks more comfortable than he did yesterday morning. Oropharynx is not inflamed and thrush is improved. Neck is without lymphadenopathy. Lungs continue to have rales on the right with faint rales on the left. He has fair aeration. Breath sounds are distant anteriorly. Assessment and Plan (1) Pneumonia Current visit: Yes Status: Acute Category: Medical Code(s): J18.9 - Pneumonia, unspecified organism (2) Disseminated malignancy of unknown primary Current visit: Yes Status: Acute Category: Medical Code(s): C80.0 - Disseminated malignant neoplasm, unspecified; C80.1 - Malignant (primary) neoplasm, unspecified (3) Hyperglycemia Current visit: Yes Status: Acute Category: Medical Code(s): R73.9 - Hyperglycemia, unspecified - Assessment and plan all Dx Assessment and Plan for all problems:: Today will be day 7 of antibiotics. I will repeat his chest x-ray again to assess the right lung.
[2018-12-11 08:58] LABS: Basophils % 0.2 % (0.1-2.0); Eosinophils # 0.4 K/mm3 (0.0-0.4); Hematocrit 37.4 % (42.0-52.0); Hemoglobin 11.6 g/dL (14.1-18.0); Lymphocytes # 0.9 K/mm3 (0.7-4.5); Lymphocytes % 9.3 % (10-50); Mean Corpuscular HGB Conc 31.1 g/dL (31.8-35.4); Mean Corpuscular Hemoglobin 32.2 pg (27.0-31.2); Mean Corpuscular Volume 103.4 fl (80-94); Monocytes # 0.6 K/mm3 (0.1-1.0); Neutrophils # 7.6 K/mm3 (1.8-7.8); Neutrophils % 80.4 % (37.0-80.0); Platelet Count 429 K/mm3 (142-424); Red Blood Count 3.61 M/mm3 (4.60-6.20); Red Cell Distribution Width 14.8 % (11.5-17.5); White Blood Count 9.5 K/mm3 (4.8-10.8)
--- NOTE | 2018-12-11 22:05 | Discharge Summary ---
General - General Admission date:: 12/05/18 Discharge date: 12/11/18 HPI HPI: 68-year-old male with metastatic cancer of unknown primary presented to the emergency department with at least 2 weeks of progressive shortness of breath. Patient denies fevers, chills. He admits he has had a minor cough with yellowish brown sputum production. Apparently he had been seen in the office about 48 hours prior to presentation and given a Symbicort inhaler to use. Patient has metastatic cancer with unknown primary although over the course of his disease he has been treated as if lung cancer is the primary. He has been on various oral and intravenous chemotherapies. He admits more recently he is lacked energy although responds briefly to vitamin B12 injections. His oncologist is Dr. Sanchez. Hospital Course Hospital Course: Julisa was admitted and placed on broad spectrum antibiotics and IV steroids. Patient showed slow imprrovement. Serial ex-rays showed clearing of the left lung infiltrate but persistent right lung infiltrate. Patient remained supplemental oxygen via nasal cannula at 4L/min. He had significant dyspnea with exertion. On the evening of the he developed hemoptysis. When Repeat cxr on 12/11 showed persisten infiltrate concern was raised over obstruction from malignancy vs fungal infection vs. pneumonitis. Decision was made to transfer to a facility with specialty care. Patient's oncologist is . Patient was transferred to [facility]. Objective Vital signs: Temp Pulse Resp BP Pulse Ox 97.8 F 99 H 20 155/80 H 98 12/11/18 20:00 12/11/18 20:51 12/11/18 20:43 12/11/18 20:00 12/11/18 20:00 Results Labs on day of discharge: Labs from last 24 hours 12/11/18 12/11/18 12/11/18 20:26 16:38 11:10 WBC RBC Hgb Hct MCV MCH MCHC RDW Plt Count MPV Neut % (Auto) Lymph % (Auto) [place] % (Auto) Eos % (Auto) Baso % (Auto) Neut # (Auto) Lymph # (Auto) [place] # (Auto) Eos # (Auto) Baso # (Auto) POC Glucose 126 H 79 106 12/11/18 12/11/18 07:57 06:15 WBC 9.5 RBC 3.61 L Hgb 11.6 L Hct 37.4 L MCV 103.4 H MCH 32.2 H MCHC 31.1 L RDW 14.8 Plt Count 429 H MPV 7.0 L Neut % (Auto) 80.4 H Lymph % (Auto) 9.3 L [place] % (Auto) 6.0 Eos % (Auto) 4.0 Baso % (Auto) 0.2 Neut # (Auto) 7.6 Lymph # (Auto) 0.9 [place] # (Auto) 0.6 Eos # (Auto) 0.4 Baso # (Auto) 0.0 POC Glucose 114 H DS: Diagnosis - Discharge Diagnosis (1) Pneumonia Status: Acute (2) Disseminated malignancy of unknown primary Status: Acute (3) Hyperglycemia Status: Acute Discharge Plan - Patient Discharge Instructions ACTIVITY: Continue current activity DIET: continue same diet Patient Instructions: Pneumonia-Adult, Pneumococcal Vaccine, DI for Pneumonia -- Adult Forms: Transfer Record - Follow up Plan Disposition: Xfer Short-Term Hosp Home Medications: Home Medications Medication Instructions Recorded Confirmed Type Budesonide/Formoterol Fumarate 2 puff INHALATION BID 12/05/18 12/06/18 History [Symbicort 160-4.5 Mcg Inhaler] Lorlatinib [Lorbrena] 100 mg PO DAILY 12/05/18 12/06/18 History Tramadol HCl [Tramadol 50mg 50 mg PO DAILYP PRN 12/05/18 12/11/18 History Tab] Prescriptions/Medication Reconciliation: Continue Tramadol HCl [Tramadol 50mg Tab] 50 mg PO DAILYP PRN PRN Reason: pain Lorlatinib [Lorbrena] 100 mg PO DAILY Budesonide/Formoterol Fumarate [Symbicort 160-4.5 Mcg Inhaler] 2 puff INHALATION BID
== END 2018-12-11 21:55 | disposition short-term general hospital (02) | DRG 194 ==
LOC: ER 17:00 → 2ND 17:00 → OBSVTOIN 20:54 → 2ND 20:55
PROVIDERS: ADMIT Family Medicine; ATTEND Family Medicine
CPT/HCPCS: 36415; 71020; 71046; 71275; 80048; 80053; 82962; 83605; 85007; 85025; 87040; 87070; 87205; 93005; 94640; 94761; 96365; 99284; J1956; J2543; J3370; Q9967

== ENCOUNTER 2019-01-21 23:05 | Observation (INO) ==
[2019-01-21 23:22] LABS: ABG Base Excess -0.6 mmol/L (-2.4-2.3); ABG HCO3 21.8 mmhg (22.0-26.0); ABG Oxygen Saturation 84 % (90-100); ABG PCO2 25.8 mmhg (35.0-45.0); ABG TCO2 22.6 mmhg (23-27)
[2019-01-21 23:23] LABS: Basophils % 0.2 % (0.1-2.0); Eosinophils # 0.1 K/mm3 (0.0-0.4); Eosinophils % 0.7 % (0.1-12.0); Hematocrit 39.5 % (42.0-52.0); Hemoglobin 13.1 g/dL (14.1-18.0); Lymphocytes # 1.1 K/mm3 (0.7-4.5); Lymphocytes % 10.7 % (10-50); Mean Corpuscular HGB Conc 33.3 g/dL (31.8-35.4); Mean Corpuscular Hemoglobin 31.9 pg (27.0-31.2); Mean Corpuscular Volume 95.9 fl (80-94); Mean Platelet Volume 8.4 fl (7.4-10.4); Monocytes # 0.7 K/mm3 (0.1-1.0); Monocytes % 6.9 % (1.7-9.3); Neutrophils # 7.9 K/mm3 (1.8-7.8); Neutrophils % 81.5 % (37.0-80.0); Platelet Count 199 K/mm3 (142-424); Red Blood Count 4.12 M/mm3 (4.60-6.20); Red Cell Distribution Width 15.2 % (11.5-17.5); White Blood Count 9.7 K/mm3 (4.8-10.8)
[2019-01-21 23:24] LABS: Allen's Test Acceptable; Oxygen 36 %
[2019-01-21 23:26] LABS: ABG PH 7.55 mmol/L (7.35-7.45)
[2019-01-21 23:40] LABS: Alanine Aminotransferase 26 U/L (12-78); Albumin Level 3.1 gm/dL (3.4-5.0); Albumin/Globulin Ratio 0.6 (1.1-1.8); Alkaline Phosphatase 77 U/L (46-116); Anion Gap 18.7 mEq/L (5-15); Aspartate Amino Transferase 35 U/L (15-37); Bilirubin,Total 0.4 mg/dL (0.2-1.0); Blood Urea Nitrogen 22 mg/dL (7-18); C-Reactive Protein 12.4 mg/L (0.0-0.9); Calcium 9.5 mg/dL (8.5-10.1); Carbon Dioxide 23 mmol/L (21.0-32.0); Chloride 101 mmol/L (98-107); Glucose 100 mg/dL (74-106); Potassium 3.7 mmoL/L (3.5-5.1); Sodium 139 mmol/L (136-145); Total Protein,Serum 8.1 gm/dL (6.4-8.2)
--- NOTE | 2019-01-22 00:29 | Emergency Department Note ---
ED Disposition Clinical Impression: HCAP (healthcare-associated pneumonia), Acute exacerbation of chronic obstructive airways disease, Disseminated malignancy of unknown primary, Elevated erythrocyte sedimentation rate Disposition: Admitted as Observation Condition on Discharge: Serious Referrals: Jose Alejandro Wakefield MD [Primary Care Provider] - - Critical Care Critical Care Time: No Attestation: On 01/21/19, the high probability of a clinically significant, sudden or life threatening deterioration of the following system(s) required my full and direct attention, intervention and personal management. The time I documented below is in addition to time spent performing reported procedures but includes the following listed in this critical care notation. Medical Decision Making - Medical Records Medical records reviewed: Yes: I reviewed the patient's medical records. - Aaron Inquiry Pt receiving controlled substance: No Vital Signs: 01/21/19 23:10 01/21/19 23:35 01/22/19 00:05 Temperature 99.5 F Temperature Source Oral Pulse Rate [Right] 81 108 H 98 H Respiratory Rate 28 H 24 20 Blood Pressure [Right Arm] 166/99 H 144/68 H Blood Pressure Mean [Right Arm] 121 93 Blood Pressure Source [Right Arm] Automatic Cuff Blood Pressure Position [Right Arm] Supine 02 Sat by Pulse Oximetry 81 L 90 L 84 L Oxygen Delivery Method Nasal Cannula Nasal Cannula Nasal Cannula Oxygen Flow Rate (LPM) 4 4 3 01/22/19 01:36 01/22/19 01:39 Temperature 99.8 F H Temperature Source Oral Pulse Rate [Right] 95 H 93 H Respiratory Rate 18 18 Blood Pressure [Right Arm] 133/64 140/72 Blood Pressure Mean [Right Arm] 87 94 Blood Pressure Source [Right Arm] Blood Pressure Position [Right Arm] 02 Sat by Pulse Oximetry 88 L 87 L Oxygen Delivery Method Nasal Cannula Nasal Cannula Oxygen Flow Rate (LPM) 3 3 - Lab Data Lab results reviewed: Yes: I reviewed the patient's lab results. Lab Results 01/21/19 23:05: WBC 9.7, RBC 4.12 L, Hgb 13.1 L, Hct 39.5 L, MCV 95.9 H, MCH 31.9 H, MCHC 33.3, RDW 15.2, Plt Count 199, MPV 8.4, Neut % (Auto) 81.5 H, Lymph % (Auto) 10.7, [place] % (Auto) 6.9, Eos % (Auto) 0.7, Baso % (Auto) 0.2, Neut # (Auto) 7.9 H, Lymph # (Auto) 1.1, [place] # (Auto) 0.7, Eos # (Auto) 0.1, Baso # (Auto) 0.0 01/21/19 23:05: Sodium 139, Potassium 3.7, Chloride 101, Carbon Dioxide 23, Anion Gap 18.7 H, BUN 22 H, Creatinine 1.10, Estimated Creat Clear 74, Estimated GFR 67, Est GFR ( Amer) 81, Glucose 100, Calcium 9.5, Total Bilirubin 0.4, AST 35, ALT 26, Alkaline Phosphatase 77, Troponin I < 0.02, C-Reactive Protein 12.4 H, Total Protein 8.1, Albumin 3.1 L, Globulin 5.0 H, Albumin/Globu genet Ratio 0.6 L 01/21/19 23:05: Lactate 3.1 H 01/21/19 23:05: ESR > 120 H 01/21/19 23:07: Specimen Source Left radial, O2 % 36, ABG pH 7.55 H, ABG pCO2 25.8 L, ABG pO2 46.0 L, ABG HCO3 21.8 L, ABG Total CO2 22.6 L, ABG O2 Saturation 84 L*, ABG Base Excess -0.6, Juanito Test Acceptable Result diagrams: 01/21/19 23:05 01/21/19 23:05 Orders (Tests/Meds): ED MEDICATIONS Generic Name Dose Route Start Last Admin Trade Name Freq PRN Reason Stop Dose Admin Sodium Chloride 1,000 mls @ 999 mls/hr 01/21/19 23:30 01/21/19 23:40 Sod Chlor 0.9% 1000ml Bag IV 01/22/19 00:30 999 mls/hr .Q1H1M LAKE Administration Piperacillin Sod/Tazobactam 50 mls @ 100 mls/hr 01/22/19 01:15 01/22/19 01:20 Sod 3.375 gm/ Sodium Chloride IV 02/05/19 01:14 100 mls/hr Q8H LAKE Administration Protocol Levofloxacin/Dextrose 750 mg in 150 mls @ 100 mls/hr 01/22/19 01:30 01/22/19 01:38 Levofloxacin 750mg/150ml Premix IV 02/05/19 01:29 100 mls/hr Q24H LAKE Administration Protocol Sodium Chloride 3 ml 01/22/19 00:19 Sodium Chloride 3% 15ml Neb IH 02/21/19 00:18 ONCE PRN INDUCE SPUTUM COLLECTION Discontinued Medications Generic Name Dose Route Start Last Admin Trade Name Freq PRN Reason Stop Dose Admin Methylprednisolone Sodium Succinate 125 mg 01/21/19 23:19 01/21/19 23:40 Solu-Medrol 125mg/2ml Vial IV 01/21/19 23:20 125 mg ONCE ONE Administration ORDERS Category Date Time Status XR chest 2V Stat Exams 01/21/19 23:07 Taken Blood Culture Stat Micro 01/21/19 23:05 Received Sputum Culture & Gram Stain Stat Micro 01/22/19 01:05 Received - Radiology Data #1 Image(s): Chest Image Reviewed: Yes I reviewed the patient's radiology image Preliminary Findings: Abnormal (bilat changes ) - ECG Data Tracing #1 Arrhythmias present: sinus tach Ischemic changes: non-specific ST-T wave changes Resp/SOB HPI - General Chief Complaint: Shortness of Breath/Dyspnea Stated Complaint: SOA Time Seen by Provider: 01/21/19 23:35 Mode of Arrival: EMS Source of Information: Patient, EMS, Medical Record Limitations: No Limitations Description of Symptoms (Recalled from ER Triage Doc. by RN): Pt with severe SOA, chronic COPD on home O2 - History of Present Illness this wm who has ongoing sob with hx of copd and possible fibrosis - he was recently at [facility] and treated with iv steroids - pt on no abx - he was admitted here in 12/10 with resp infection - has hx of metastatic cancer from k primary MD Complaint: shortness of breath, cough Onset (ago): hour(s) Context: recent illness Severity: moderate Consistency/Duration: constant, intermittent Known history of: COPD, recurrent pneumonia, other (cancer ) Associated symptoms: denies other symptoms Treatment prior to arrival: oxygen - Related Data Home oxygen amount: 4 liters Home Medications Medication Instructions Recorded Confirmed Budesonide/Formoterol Fumarate 2 puff INHALATION BID 12/05/18 01/21/19 [Symbicort 160-4.5 Mcg Inhaler] Lorlatinib [Lorbrena] 100 mg PO DAILY 12/05/18 01/21/19 predniSONE [Deltasone 10mg tablet] 40 mg PO DAILY 12/31/18 01/21/19 Albuterol Sulfate [Albuterol 2.5 mg IH QID 01/21/19 01/21/19 0.083% 2.5mg/3mL neb] Cholecalciferol (Vitamin D3) 1,000 unit PO DAILY 01/21/19 01/21/19 [Vitamin D3 1,000 Unit Cap] Pantoprazole Sodium [Protonix 40mg 40 mg PO DAILY 01/21/19 01/21/19 tablet] Allergies Allergy/AdvReac Type Severity Reaction Status Date / Time No Known Allergies Allergy Verified 01/21/19 23:18 [facility] History - Hepatitis A Screen Drug use history?: No High risk sexual behaviors?: No History of sexually transmitted infection?: No Currently employed?: No Childcare worker?: No Do you have indoor plumbing?: Yes Do you have electricity?: Yes Attestation statement:: This patient has been screened for Hepatitis A risk factors. I have reviewed the patient's past medical history: Yes Medical History: Reports:: Home Oxygen (4 L/M at rest and 8 L/M with activity) Denies:: Cancer, Diabetes Mellitus Type 1, Diabetes Mellitus Type 2, Internal Pacemaker, MRSA Other Surgeries: No: Pacemaker Amputation: No Fractures: No - Social History Smoking Status: Former smoker Tobacco Type: cigarettes #Yrs smoked (if former smoker): 35 Alcohol Intake: never Occupational Status: retired Housing: house - Psychiatric History Expresses thoughts of harming self/others: None Suicide Plan Description: No Plan Family Hx:: Non-contributory ROS Obtained: Yes All systems reviewed & no additional complaints - Constitutional Constitutional: Denies fever(s) - Eyes Eyes: Denies change in vision - ENT Ears, Nose, Mouth, and Throat: Denies sore throat - Cardiovascular Cardiovascular: Denies chest pain, Reports dyspnea - Respiratory Respiratory: Yes cough, No coughing up blood - Gastrointestinal Gastrointestingal: Denies: abdominal pain - Genitourinary Male Genitourinary: Denies hematuria - Musculoskeletal Musculoskeletal: Denies joint pain - Integumentary/Breasts Skin/Breast: Denies rash - Neurologic Neurologic: Denies seizure-like activity Physical Exam - General General appearance: alert, in no apparent distress - Head Head exam: normocephalic - Eye Eye exam: Present: PERRL, EOMI. Absent: scleral icterus - ENT ENT exam: Present: mucous membranes dry - Neck Neck exam: Present: trachea midline - Respiratory Respiratory exam: Absent: respiratory distress - Cardiovascular Cardiovascular exam: Present: systolic murmur. Absent: regular rate, rubs - Abdominal Exam Abdominal exam: Present: soft - Extremities Exam Extremities exam: Absent: calf tenderness - Neurological Exam Neurological exam: Present: alert, CN II-XII intact - Psychiatric Psychiatric exam: Present: normal affect - Skin Skin exam: Absent: rash
[2019-01-22 05:12] LABS: Basophils % 0.1 % (0.1-2.0); Eosinophils % 0.1 % (0.1-12.0); Hematocrit 34.9 % (42.0-52.0); Lymphocytes # 0.4 K/mm3 (0.7-4.5); Lymphocytes % 4.4 % (10-50); Mean Corpuscular HGB Conc 32.3 g/dL (31.8-35.4); Mean Corpuscular Hemoglobin 31.1 pg (27.0-31.2); Mean Corpuscular Volume 96.3 fl (80-94); Mean Platelet Volume 8.8 fl (7.4-10.4); Monocytes # 0.2 K/mm3 (0.1-1.0); Monocytes % 2.8 % (1.7-9.3); Neutrophils % 92.7 % (37.0-80.0); Platelet Count 156 K/mm3 (142-424); Red Blood Count 3.62 M/mm3 (4.60-6.20); Red Cell Distribution Width 15.3 % (11.5-17.5); White Blood Count 8.6 K/mm3 (4.8-10.8)
[2019-01-22 05:18] LABS: Anion Gap 16.2 mEq/L (5-15); Potassium 4.2 mmoL/L (3.5-5.1)
[2019-01-22 05:45] LABS: Hemoglobin 11.4 g/dL (14.1-18.0)
[2019-01-22 06:06] LABS: Lymphocytes % 2 % (10-50); Monocytes % 1 % (2-9); Neutrophils % 97 % (42-76); Total Cells Counted 100
[2019-01-22 06:07] LABS: Anisocytosis 1+
--- NOTE | 2019-01-22 07:38 | History & Physical Report ---
*Admission Date: 01/22/19 *Chief complaint: Shortness of breath *History of present illness: 88-year-old male with history of metastatic cancer with unknown primary being treated as lung cancer by Dr. Jeff Sanchez presented to the emergency department after an episode of increased work of breathing with tremors and shortness of breath. Patient was recently treated at this hospital for bilateral pneumonia and after 5 days was transferred to [facility] for higher level of care. Patient completed a course of inpatient and outpatient antibiotics and is also on high-dose steroids per the chief design engineer at [place]. It is believed the patient is experiencing pneumonitis from his chemotherapy. Patient reports he had an episode on Sunday night where he began shaking and felt short of breath. His son increased his home oxygen from 3-4 and after approximately 60 minutes the patient's condition improved. He had another episode last night but did not respond to the increase in oxygen and was subsequently brought to the hospital. Both patient and his son provide history this morning and both episodes did occur shortly after the patient took's what he recalls to be Mucinex D, and albuterol neb, and his Symbicort. He denies having fevers. 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), Chronic Obstructive Pulmonary Disease (COPD), Home Oxygen (4 L/M at rest and 8 L/M with activity) Denies:: Diabetes Mellitus Type 1, Diabetes Mellitus Type 2, Internal Pacemaker, MRSA *Have you ever received a pneumonia vaccine?: Yes *Have you received a flu vaccine this season?: Yes Comment:: Pneumonitis secondary to chemotherapeutic agent Other Surgeries: No: Pacemaker Amputation: No Fractures: No - *Social History Educational Level: Completed College Smoking Status: Former smoker Tobacco Type: cigarettes #Yrs smoked (if former smoker): 35 Alcohol Intake: never *Occupational Status:: retired Housing: house Household Members: spouse, children *Travel in the last 8 weeks: None - Psychiatric History Expresses thoughts of harming self/others: None Suicide Plan Description: No Plan Family Hx:: Non-contributory Review of Systems - Review of Systems Review of systems:: pertinent systems reviewed and negative unless documented below - Constitutional Reports chills, Denies body ache(s), Denies fever(s) - *Cardiovascular Denies chest pain, Denies chest pain at rest, Denies chest pain with activity - *Respiratory Reports chest congestion, Reports cough, Reports shortness of breath, Reports shortness of breath with activity, Denies change in phlegm color, Denies excessive phlegm production, Denies coughing up blood, Denies pain on inspiration, Denies pain with cough, Denies snoring, Denies stridor, Denies wheezing, Denies other - *Neurologic Denies seizure-like activity Meds Home Medications Medication Instructions Recorded Confirmed Type Budesonide/Formoterol Fumarate 2 puff INHALATION BID 12/05/18 01/21/19 History [Symbicort 160-4.5 Mcg Inhaler] Lorlatinib [Lorbrena] 100 mg PO DAILY 12/05/18 01/21/19 History predniSONE [Deltasone 10mg tablet] 40 mg PO DAILY 12/31/18 01/21/19 History Albuterol Sulfate [Albuterol 2.5 mg IH QID 01/21/19 01/21/19 History 0.083% 2.5mg/3mL neb] Cholecalciferol (Vitamin D3) 1,000 unit PO DAILY 01/21/19 01/21/19 History [Vitamin D3 1,000 Unit Cap] Pantoprazole Sodium [Protonix 40mg 40 mg PO DAILY 01/21/19 01/21/19 History tablet] Allergies Allergy/AdvReac Type Severity Reaction Status Date / Time No Known Allergies Allergy Verified 01/21/19 23:18 Exam Vital signs and Labs for Last 24 Hours: Temp Pulse Resp BP Pulse Ox 97.8 F 55 L 21 115/56 L 88 L 01/22/19 04:00 01/22/19 06:09 01/22/19 04:00 01/22/19 04:00 01/22/19 06:09 Laboratory Results - last 24 hr 01/21/19 23:05: WBC 9.7, RBC 4.12 L, Hgb 13.1 L, Hct 39.5 L, MCV 95.9 H, MCH 31.9 H, MCHC 33.3, RDW 15.2, Plt Count 199, MPV 8.4, Neut % (Auto) 81.5 H, Lymph % (Auto) 10.7, Laurens % (Auto) 6.9, Eos % (Auto) 0.7, Baso % (Auto) 0.2, Neut # (Auto) 7.9 H, Lymph # (Auto) 1.1, Laurens # (Auto) 0.7, Eos # (Auto) 0.1, Baso # (Auto) 0.0 01/21/19 23:05: Sodium 139, Potassium 3.7, Chloride 101, Carbon Dioxide 23, Anion Gap 18.7 H, BUN 22 H, Creatinine 1.10, Estimated Creat Clear 74, Estimated GFR 67, Est GFR ( Amer) 81, Glucose 100, Calcium 9.5, Total Bilirubin 0.4, AST 35, ALT 26, Alkaline Phosphatase 77, Troponin I < 0.02, C-Reactive Protein 12.4 H, Total Protein 8.1, Albumin 3.1 L, Globulin 5.0 H, Alb umin/Globulin Ratio 0.6 L 01/21/19 23:05: Lactate 3.1 H 01/21/19 23:05: ESR > 120 H 01/21/19 23:07: Specimen Source Left radial, O2 % 36, ABG pH 7.55 H, ABG pCO2 25.8 L, ABG pO2 46.0 L, ABG HCO3 21.8 L, ABG Total CO2 22.6 L, ABG O2 Saturation 84 L*, ABG Base Excess -0.6, Juanito Test Acceptable 01/22/19 03:00: Lactate 1.2 01/22/19 05:00: Troponin I < 0.02 01/22/19 05:00: WBC 8.6, RBC 3.62 L, Hgb 11.4 L D, Hct 34.9 L, MCV 96.3 H, MCH 31.1, MCHC 32.3, RDW 15.3, Plt Count 156, MPV 8.8, Neut % (Auto) 92.7 H, Lymph % (Auto) 4.4 L, Laurens % (Auto) 2.8, Eos % (Auto) 0.1, Baso % (Auto) 0.1, Neut # (Auto) 8.0 H, Lymph # (Auto) 0.4 L, Laurens # (Auto) 0.2, Eos # (Auto) 0.0, Baso # (Auto) 0.0, Total Counted 100, Neutrophils % (Manual) 97 H, Lymphocytes % (Manual) 2 L, Monocytes % (Manual) 1 L, Platelet Estimate Normal, RBC Morphology Not Reportable, Anisocytosis 1+ 01/22/19 05:00: Sodium 135 L, Potassium 4.2, Chloride 101, Carbon Dioxide 22, Anion Gap 16.2 H, BUN 17, Creatinine 1.16, Estimated Creat Clear 69, Estimated GFR 63, Est GFR ( Amer) 76, Glucose 190 H D, Calcium 9.0, Magnesium 1.8 I & O for Last 24 hours: Intake & Output 01/19/19 01/20/19 01/21/19 01/22/19 11:59 11:59 11:59 11:59 Intake Total 1450 / 1450 Balance 1450 / 1450 Weight 171 lb 5 oz Microbiology Reports for the Last 24 Hours: Microbiology 01/22/19 01:05 Sputum - Expectorated Sputum Gram Stain - Final Narrative: Patient appears comfortable in bed this morning. There are no signs of respiratory distress. Nasal cannula is in place. Oropharynx is moist. Neck is without lymphadenopathy. Lungs have clear sounds in the upper lungs but posteriorly have a dry crackles. No wheezing is heard. Heart has a bradycardic rate and rhythm. Abdomen is soft and nontender. Extremities are warm to the touch and there is no edema. Patient has intact neurologic function Assessment and Plan (1) Pneumonitis Current visit: Yes Status: Acute Category: Medical Code(s): J18.9 - Pneumonia, unspecified organism (2) Disseminated malignancy of unknown primary Current visit: Yes Status: Acute Category: Medical Code(s): C80.0 - Disseminated malignant neoplasm, unspecified; C80.1 - Malignant (primary) neoplasm, unspecified - Assessment and plan all Dx Assessment and Plan for all problems:: 1. Continue prednisone 40 mg daily. 2. Continue empiric antibiotics right now although I do not believe the patient has bacterial pneumonia as his x-ray is unchanged from prior hospitalization and he is completed an extensive course of both IV and oral antibiotics. 3. Patient will be ordered Robitussin today along with use of his home medications and he will be observed for signs of tremors, possible fevers, medication interactions.
--- NOTE | 2019-01-22 07:39 | Pharmacy Consult Notes ---
[facility] Pharmacy VTE Monitoring - Patient Demographics Admission date: 01/22/19 Report Date: 01/22/19 Time: 07:38 Allergies/Adverse Reactions: Patient Allergies No Known Allergies Allergy (Verified 01/21/19 23:18) Height: 1.85 m Weight: 77.706 kg Patient Problems: Current Active Problems (Updated 01/22/19 @ 01:43 by Jerrell Arevalo MD) Disseminated malignancy of unknown primary (Acute) Healthcare-associated pneumonia (Acute) Acute exacerbation of chronic obstructive airways disease (Acute) Elevated erythrocyte sedimentation rate (Acute) - VTE Risk Labs: VTE Related Lab Results Hgb 11.4 g/dL (14.1-18.0) L D 01/22/19 05:00 Hct 34.9 % (42.0-52.0) L 01/22/19 05:00 Plt Count 156 K/mm3 (142-424) 01/22/19 05:00 BUN 17 mg/dL (7-18) 01/22/19 05:00 Creatinine 1.16 mg/dL (0.70-1.30) 01/22/19 05:00 Estimated Creat Clear 69 mL/min (50-200) 01/22/19 05:00 Was VTE Risk Assessment Performed: No VTE Score: 4 VTE Risk Level: Low Risk - Prophylaxis VTE Prophylaxis Ordered?: Yes Types of VTE Prophylaxis: TEDS Knee High Location of Applied Device: Bilateral Lower Extremeties - VTE Diagnosis Confirmed Treatment or plan recommended: Continue Current Treatment
--- NOTE | 2019-01-23 07:41 | Progress Note ---
Internal Medicine - PN: Subj *Date: 01/23/19 *Time: 07:38 Interval history: Patient reports feeling well. He had no episodes of tremors, chills yesterday. He has had no documented fevers. He did take guaifenesin one time yesterday without any side effect. He reports he feels as if his dyspnea is improving and he is beginning to produce hand congealed the sputum Exam Vital signs and Labs for Last 24 Hours: Temp Pulse Resp BP Pulse Ox 97.8 F 68 17 108/58 L 88 L 01/23/19 04:00 01/23/19 05:55 01/23/19 04:00 01/23/19 04:00 01/23/19 05:55 I & O for Last 24 hours: Intake & Output 01/20/19 01/21/19 01/22/19 01/23/19 11:59 11:59 11:59 11:59 Intake Total 1690 / 1690 1340 / 1340 Output Total 550 / 550 Balance 1690 / 1690 790 / 790 Weight 171 lb 5 oz 172 lb 2 oz Microbiology Reports for the Last 24 Hours: Microbiology 01/22/19 01:05 Sputum - Expectorated Sputum Gram Stain - Final 01/22/19 01:05 Sputum - Expectorated Sputum Sputum Culture - Preliminary Narrative: Patient appears comfortable. Lungs have fair aeration. Crackles in bases have decreased. Heart has a regular rate and rhythm. Extremities are without edema Assessment and Plan (1) Pneumonitis Current visit: Yes Status: Acute Category: Medical Code(s): J18.9 - Pneumonia, unspecified organism (2) Disseminated malignancy of unknown primary Current visit: Yes Status: Acute Category: Medical Code(s): C80.0 - Disseminated malignant neoplasm, unspecified; C80.1 - Malignant (primary) neoplasm, unspecified - Assessment and plan all Dx Assessment and Plan for all problems:: Discharged home. I have recommended that he use plain Mucinex instead of Mucinex D as I believe he is experiencing medication interactions causing these episodes of uncontrolled tremors and shaking. He is aware that tremors can be a side effect of his albuterol
--- NOTE | 2019-01-23 07:43 | Discharge Summary ---
General - General Admission date:: 01/22/19 Discharge date: 01/23/19 HPI HPI: 88-year-old male with history of metastatic cancer with unknown primary being treated as lung cancer by Dr. Jeff Sanchez presented to the emergency department after an episode of increased work of breathing with tremors and shortness of breath. Patient was recently treated at this hospital for bilateral pneumonia and after 5 days was transferred to [facility] for higher level of care. Patient completed a course of inpatient and outpatient antibiotics and is also on high-dose steroids per the site project manager at [place]. It is believed the patient is experiencing pneumonitis from his chemotherapy. Patient reports he had an episode on Sunday night where he began shaking and felt short of breath. His son increased his home oxygen from 3-4 and after approximately 60 minutes the patient's condition improved. He had another episode last night but did not respond to the increase in oxygen and was subsequently brought to the hospital. Both patient and his son provide history this morning and both episodes did occur shortly after the patient took's what he recalls to be Mucinex D, and albuterol neb, and his Symbicort. He denies having fevers. He i s currently taking prednisone 40 mg a day as part of a prolonged taper to treat his pneumonitis Hospital Course Hospital Course: Patient was admitted and continued on Levaquin and Zosyn for the possibility of hospital-acquired pneumonia. I felt that there was no true pneumonia as the patient's x-ray was unchanged from his prior hospitalization in December and he had been treated adequately with a prolonged course of both inpatient and outpatient antibiotics. His site project manager was currently treating him for pneumonitis with high-dose prednisone and this was continued while hospitalized. Sputum culture was obtained and at the time of discharge was unavailable. Patient had described episodes of uncontrolled tremors and shaking at home in the evening. This happened on 2 separate occasions and I believe the patient was having side effects from use of multiple medications to include possibly his Symbicort, albuterol nebs, guaifenesin and pseudoephedrine combination for cough. After being observed for 24 hours without recurrence of symptoms or fevers patient was discharged back to home. He will follow-up with his oncologist tomorrow as scheduled and his site project manager on February 03 Objective Vital signs: Temp Pulse Resp BP Pulse Ox 97.8 F 68 17 108/58 L 88 L 01/23/19 04:00 01/23/19 05:55 01/23/19 04:00 01/23/19 04:00 01/23/19 05:55 Results Labs on day of discharge: Preliminary micro results at discharge 01/22/19 01:05 Sputum Culture - Preliminary Sputum - Expectorated Sputum DS: Diagnosis - Discharge Diagnosis (1) Pneumonitis Status: Acute (2) Disseminated malignancy of unknown primary Status: Acute Discharge Plan - Patient Discharge Instructions ACTIVITY: Continue current activity DIET: continue same diet Patient Instructions: Pneumonia-Adult, Chronic Obstructive Pulmonary Disease, Pneumococcal Vaccine, DI for Chronic Obstructive Pulmonary Disease, DI for Pneumonia -- Adult - Follow up Plan Disposition: Home, Self-Long-Term Medications: Home Medications Medication Instructions Recorded Confirmed Type Budesonide/Formoterol Fumarate 2 puff INHALATION BID 12/05/18 01/21/19 History [Symbicort 160-4.5 Mcg Inhaler] Lorlatinib [Lorbrena] 100 mg PO DAILY 12/05/18 01/21/19 History predniSONE [Deltasone 10mg tablet] 10 mg PO DAILY 12/31/18 01/22/19 History Cholecalciferol (Vitamin D3) 1,000 unit PO DAILY 01/21/19 01/21/19 History [Vitamin D3 1,000 Unit Cap] Pantoprazole Sodium [Protonix 40mg 40 mg PO DAILY 01/21/19 01/21/19 History tablet] Alectinib HCl [Alecensa] 600 mg PO BID 01/22/19 01/22/19 History Ipratropium/Albuterol Sulfate 3 ml IH Q6H 01/22/19 01/22/19 History [Duoneb 3mL neb] Prescriptions/Medication Reconciliation: Continued Lorlatinib [Lorbrena] 100 mg PO DAILY Budesonide/Formoterol Fumarate [Symbicort 160-4.5 Mcg Inhaler] 2 puff INHALATION BID predniSONE [Deltasone 10mg tablet] 10 mg PO DAILY Cholecalciferol (Vitamin D3) [Vitamin D3 1,000 Unit Cap] 1,000 unit PO DAILY Ipratropium/Albuterol Sulfate [Duoneb 3mL neb] 3 ml IH Q6H Pantoprazole Sodium [Protonix 40mg tablet] 40 mg PO DAILY Alectinib HCl [Alecensa] 600 mg PO BID
== END 2019-01-23 10:35 | disposition home or self-care (01) ==
LOC: 2ND 23:05 → ER 23:05 → 2ND 01-22 02:04
PROVIDERS: ADMIT Emergency Medicine; ATTEND Family Medicine
CPT/HCPCS: 36415; 71020; 71046; 80048; 80053; 82803; 83605; 83735; 84484; 85007; 85025; 85651; 86140; 87040; 87070; 87205; 93005; 94640; 96365; 96366; 96375; 99285; G0378; J1956; J2543

== ENCOUNTER → 2019-02-25 14:28 | Outpatient (CLI) | payer MEDICARE, BC, SELFPAY ==
[2019-02-25 15:15] LABS: Basophils % 0.2 % (0.1-2.0); Eosinophils % 0.3 % (0.1-12.0); Hematocrit 37.6 % (42.0-52.0); Hemoglobin 12.8 g/dL (14.1-18.0); Lymphocytes # 1.1 K/mm3 (0.7-4.5); Mean Corpuscular Hemoglobin 30.8 pg (27.0-31.2); Mean Corpuscular Volume 90.7 fl (80-94); Mean Platelet Volume 7.1 fl (7.4-10.4); Monocytes # 0.5 K/mm3 (0.1-1.0); Monocytes % 5.1 % (1.7-9.3); Neutrophils # 7.4 K/mm3 (1.8-7.8); Neutrophils % 82.5 % (37.0-80.0); Platelet Count 244 K/mm3 (142-424); Red Blood Count 4.14 M/mm3 (4.60-6.20); Red Cell Distribution Width 15.1 % (11.5-17.5)
[2019-02-25 18:37] LABS: Alanine Aminotransferase 27 U/L (12-78); Albumin Level 3.1 gm/dL (3.4-5.0); Albumin/Globulin Ratio 0.9 (1.1-1.8); Alkaline Phosphatase 89 U/L (46-116); Anion Gap 18.2 mEq/L (5-15); Aspartate Amino Transferase 70 U/L (15-37); Bilirubin,Total 0.3 mg/dL (0.2-1.0); Blood Urea Nitrogen 18 mg/dL (7-18); Calcium 9.1 mg/dL (8.5-10.1); Carbon Dioxide 23 mmol/L (21.0-32.0); Chloride 104 mmol/L (98-107); Creatinine,Serum 1.03 mg/dL (0.70-1.30); Estimated Glomerular Filt Rate 72 ml/min (>60); GFR (African American) 87 ML/MIN (>60); Globulin 3.6 gm/dl (1.3-3.2); Glucose 110 mg/dL (74-106); Potassium 4.2 mmoL/L (3.5-5.1); Sodium 141 mmol/L (136-145); Total Protein,Serum 6.7 gm/dL (6.4-8.2)
== END ==
PROVIDERS: Visit Provider Internal Medicine
DX: R22.1 Localized swelling, mass and lump, neck (principal); C79.9 Secondary malignant neoplasm of unspecified site
CPT/HCPCS: 36415; 80053; 85025

== ENCOUNTER → 2019-03-03 07:57 | Outpatient (CLI) | payer MEDICARE, BC, SELFPAY ==
--- NOTE | 2019-03-03 08:00 | CT_ITS ---
CT chest wo con HISTORY: ITS.REASON: ADENOCARCINOMA METASTATIC ORDERING PHYSICIAN: Jay Jimenez MD PATIENT AGE: 68 years COMPARISON: 12/05/2018 Technique: Axial images obtained without contrast. Sagittal, and coronal reformatted images are also generated and reviewed. All CT scans at the facility use one or more dose reduction, viz: automated exposure control, ma/kV adjustment per patient size (including targeted exams where dose is matched to indication, i.e. head), or iterative reconstruction technique. FINDINGS: Evaluation of the mediastinal and hilar structures is limited without IV contrast. Scattered small mediastinal lymph nodes are once again noted measuring up to 1.3 cm in the precarinal region. There is increased soft tissue density in the right hilum and anterior to the right hilum somewhat difficult to compare to the previous exam without IV contrast.. The opacification may be somewhat greater. There is a moderate-sized right pleural effusion and a small left pleural effusion. Severe bolus emphysematous changes are noted with centrilobular and panlobular emphysema. Compressive atelectatic changes are present from the right sided effusion. Consolidation in the right lower lobe posteriorly measuring approximately 5 x 2.8 cm and may be related to an area of rounded atelectasis. Air bronchograms are present in this region. There is a small left pleural effusion. Diffuse pulmonary fibrotic changes are present in the upper lobes. The previously noted bilateral pneumonia has shown improvement. Diffuse blastic metastatic disease once again noted. IMPRESSION: 1. There has been improvement in the diffuse bilateral pneumonia. 2. Moderate right-sided pleural effusion with a an oval area of consolidation in the right lower lobe posteriorly which may be related to an area of pneumonia or rounded atelectasis. Small left pleural effusion also noted. 3. Overall no change in the diffuse blastic bony metastasis
== END ==
PROVIDERS: PCP Family Medicine; Visit Provider Internal Medicine
DX: C79.9 Secondary malignant neoplasm of unspecified site (principal)
CPT/HCPCS: 71250

== ENCOUNTER 2019-03-13 12:45 | Inpatient (IN) ==
[2019-03-13 13:06] LABS: Basophils % 0.3 % (0.1-2.0); Eosinophils # 0.1 K/mm3 (0.0-0.4); Eosinophils % 0.6 % (0.1-12.0); Hematocrit 40.7 % (42.0-52.0); Lymphocytes # 1.1 K/mm3 (0.7-4.5); Lymphocytes % 9.9 % (10-50); Mean Corpuscular HGB Conc 31.8 g/dL (31.8-35.4); Mean Corpuscular Hemoglobin 28.8 pg (27.0-31.2); Mean Corpuscular Volume 90.4 fl (80-94); Mean Platelet Volume 7.4 fl (7.4-10.4); Monocytes # 0.4 K/mm3 (0.1-1.0); Monocytes % 3.7 % (1.7-9.3); Neutrophils # 9.3 K/mm3 (1.8-7.8); Neutrophils % 85.6 % (37.0-80.0); Platelet Count 236 K/mm3 (142-424); Red Cell Distribution Width 15.5 % (11.5-17.5); White Blood Count 10.9 K/mm3 (4.8-10.8)
--- NOTE | 2019-03-13 13:30 | Emergency Department Note ---
ED Disposition Clinical Impression: Acute on chronic respiratory failure with hypoxemia, Emphysema lung, Congestive heart failure Disposition: Admitted as Observation Condition on Discharge: Fair Time of Disposition: 16:58 - Critical Care Critical Care Time: No Attestation: On 03/13/19, the high probability of a clinically significant, sudden or life threatening deterioration of the following system(s) required my full and direct attention, intervention and personal management. The time I documented below is in addition to time spent performing reported procedures but includes the following listed in this critical care notation. Medical Decision Making - Medical Records Medical records reviewed: Yes: I reviewed the patient's medical records. - Aaron Inquiry Pt receiving controlled substance: No Aaron was queried for this patient: No Vital Signs: 03/13/19 12:51 03/13/19 13:47 03/13/19 15:30 Temperature 97.7 F Temperature Source Oral Pulse Rate [Left Radial] 106 H 98 H 99 H Respiratory Rate 24 26 H 24 Blood Pressure [Right Arm] 159/95 H 154/97 H 161/91 H Blood Pressure Mean [Right Arm] 116 116 114 Blood Pressure Source [Right Arm] Automatic Cuff Blood Pressure Position [Right Arm] Sitting Supine Sitting 02 Sat by Pulse Oximetry 79 L 87 L 88 L Oxygen Delivery Method Room Air Nasal Cannula Nasal Cannula Oxygen Flow Rate (LPM) 5 5 - Lab Data Lab results reviewed: Yes: I reviewed the patient's lab results. Lab Results 03/13/19 12:50: WBC 10.9 H, RBC 4.50 L, Hgb 13.0 L, Hct 40.7 L, MCV 90.4, MCH 28.8, MCHC 31.8, RDW 15.5, Plt Count 236, MPV 7.4, Neut % (Auto) 85.6 H, Lymph % (Auto) 9.9 L, [place] % (Auto) 3.7, Eos % (Auto) 0.6, Baso % (Auto) 0.3, Neut # (Auto) 9.3 H, Lymph # (Auto) 1.1, [place] # (Auto) 0.4, Eos # (Auto) 0.1, Baso # (Auto) 0.0, Total Counted 100, Neutrophils % (Manual) 90 H, Band Neutrophils % 1.0, Lymphocytes % (Manual) 7 L, Monocytes % (Manual) 2, Platelet Estimate Normal, RBC Morphology Normal 03/13/19 12:50: Sodium 138, Potassium 4.4, Chloride 102, Carbon Dioxide 22, Anion Gap 18.4 H, BUN 20 H, Creatinine 1.17, Estimated Creat Clear 72, Estimated GFR 62, Est GFR ( Amer) 75, Glucose 122 H, Calcium 9.7, Troponin I < 0.02 03/13/19 12:50: Lactate 1.6 03/13/19 12:50: B-Natriuretic Peptide 72 03/13/19 12:50: PT 10.2, INR 0.98, APTT 33.2 03/13/19 12:56: Specimen Source Right radial, O2 % 5lpm nc, ABG pH 7.48 H, ABG pCO2 30.2 L, ABG pO2 56.4 L, ABG HCO3 22.0, ABG Total CO2 22.9 L, ABG O2 Saturation 87 L*, ABG Base Excess -1.5, Juanito Test Acceptable Result diagrams: 03/13/19 12:50 03/13/19 12:50 Orders (Tests/Meds): ED MEDICATIONS Generic Name Dose Route Start Last Admin Trade Name Freq PRN Reason Stop Dose Admin Levofloxacin/Dextrose 750 mg in 150 mls @ 100 mls/hr 03/13/19 15:45 03/13/19 15:51 Levofloxacin 750mg/150ml Premix IV 03/27/19 15:44 100 mls/hr Q24H LAKE Administration Protocol Discontinued Medications Generic Name Dose Route Start Last Admin Trade Name Freq PRN Reason Stop Dose Admin Furosemide 40 mg 03/13/19 15:36 03/13/19 15:49 Lasix 40mg/4ml Vial IV 03/13/19 15:37 40 mg ONCE ONE Administration Methylprednisolone Sodium Succinate 125 mg 03/13/19 12:51 03/13/19 13:20 Solu-Medrol 125mg/2ml Vial IV 03/13/19 12:52 125 mg ONCE ONE Administration ORDERS Category Date Time Status Blood Culture Stat Micro 03/13/19 12:50 Received - Physician Consults Physician Consulted: jose david Time: 16:45 Comment/Response: admit, diuretics and iv levaquin, findings c/w enlarging R pleural effusion, consolidation R lung base, concerns of chf secondary to cardiomegaly and cephalization of vessels General Adult HPI - General Chief complaint: Shortness of Breath/Dyspnea Stated complaint: SOA Time Seen by Provider: 03/13/19 13:21 Mode of Arrival: EMS Source of Information: Patient Limitations: No Limitations Description of Symptoms (Recalled from ER Triage Doc. by RN): c/o SOA that started this am. States he has CA t/o his body, chest, hip and back - History of Present Illness HPI narrative: dyspnea, long standing but worsening, history of malignancy/emphysema/ acute inflammation currently under treatment with corticosteroids - Related Data Home Medications Medication Instructions Recorded Confirmed Budesonide/Formoterol Fumarate 2 puff INHALATION BID 12/05/18 03/13/19 [Symbicort 160-4.5 Mcg Inhaler] Lorlatinib [Lorbrena] 100 mg PO DAILY 12/05/18 03/13/19 predniSONE [Deltasone 10mg tablet] 10 mg PO DAILY 12/31/18 03/13/19 Cholecalciferol (Vitamin D3) 1,000 unit PO DAILY 01/21/19 03/13/19 [Vitamin D3 1,000 Unit Cap] Pantoprazole Sodium [Protonix 40mg 40 mg PO DAILY 01/21/19 03/13/19 tablet] Alectinib HCl [Alecensa] 600 mg PO BID 01/22/19 03/13/19 Ipratropium/Albuterol Sulfate 3 ml IH Q6H 01/22/19 03/13/19 [Duoneb 3mL neb] Allergies Allergy/AdvReac Type Severity Reaction Status Date / Time No Known Allergies Allergy Verified 01/21/19 23:18 [facility] History - Hepatitis A Screen Drug use history?: No High risk sexual behaviors?: No History of sexually transmitted infection?: No Currently employed?: No Childcare worker?: No Do you have indoor plumbing?: Yes Do you have electricity?: Yes Attestation statement:: This patient has been screened for Hepatitis A risk factors. 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), Chronic Obstructive Pulmonary Disease (COPD), Home Oxygen (4 L/M at rest and 8 L/M with activity) Denies:: Diabetes Mellitus Type 1, Diabetes Mellitus Type 2, Internal Pacemaker, MRSA Comment: Pneumonitis secondary to chemotherapeutic agent Other Surgeries: No: Pacemaker Amputation: No Fractures: No - Social History Smoking Status: Former smoker Tobacco Type: cigarettes #Yrs smoked (if former smoker): 35 Alcohol Intake: never Occupational Status: retired Housing: house Household Members: spouse, children - Psychiatric History Expresses thoughts of harming self/others: None Suicide Plan Description: No Plan Family Hx:: Non-contributory ROS Obtained: Yes All systems reviewed & no additional complaints - Constitutional Constitutional: Denies chills, Denies fever(s) - Eyes Eyes: Denies change in vision - Respiratory Respiratory: Yes chest congestion, Yes dyspnea, Yes dyspnea on exertion, Yes coughing up blood, No pain on inspiration - Gastrointestinal Gastrointestingal: Denies: abdominal pain - Musculoskeletal Musculoskeletal: Denies joint pain, Denies joint stiffness, Denies joint swelling - Integumentary/Breasts Skin/Breast: Denies rash, Denies skin pain, Denies sores - Neurologic Neurologic: Denies syncope - Hematologic/Lymphatic Henatologic/Lymphatic: Denies easy bleeding, Denies easy bruising Physical Exam - General General appearance: alert, in distress, other (mild respiratory) - Eye Eye exam: Present: normal appearance, PERRL, EOMI - ENT ENT exam: Present: normal exam, normal oropharynx, mucous membranes moist, TM's normal bilaterally, normal external ear exam - Neck Neck exam: Present: normal inspection, full ROM, trachea midline. Absent: meningismus, lymphadenopathy - Chest Chest inspection: Present: normal inspection, symmetric chest wall rise. Absent: tenderness - Respiratory Respiratory exam: Present: respiratory distress, other (rhonchi in left base). Absent: wheezes - Cardiovascular Cardiovascular exam: Present: tachycardia - Abdominal Exam Abdominal exam: Present: soft, normal bowel sounds. Absent: distention, tenderness, guarding - Extremities Exam Extremities exam: Present: normal inspection, full ROM, normal capillary refill, other (negative hans's). Absent: calf tenderness - Back Exam Back exam: Present: normal inspection. Absent: tenderness - Neurological Exam Neurological exam: Present: alert, oriented X3 - Psychiatric Psychiatric exam: Present: normal affect, normal mood - Skin Skin exam: Present: warm, dry, intact, normal color - Lymphatic Lymphatic Findings: no adenopathy
[2019-03-13 13:31] LABS: Anion Gap 18.4 mEq/L (5-15); Blood Urea Nitrogen 20 mg/dL (7-18); Calcium 9.7 mg/dL (8.5-10.1); Carbon Dioxide 22 mmol/L (21.0-32.0); Chloride 102 mmol/L (98-107); Glucose 122 mg/dL (74-106); Potassium 4.4 mmoL/L (3.5-5.1); Sodium 138 mmol/L (136-145)
[2019-03-13 13:38] LABS: ABG Base Excess -1.5 mmol/L (-2.4-2.3); ABG Oxygen Saturation 87 % (90-100); ABG PCO2 30.2 mmhg (35.0-45.0); ABG PH 7.48 mmol/L (7.35-7.45); ABG PO2 56.4 mmhg (80-100); ABG TCO2 22.9 mmhg (23-27)
[2019-03-13 13:40] LABS: Allen's Test Acceptable
[2019-03-13 13:42] LABS: Lymphocytes % 7 % (10-50); Monocytes % 2 % (2-9); Neutrophils % 90 % (42-76); RBC Morphology Normal; Total Cells Counted 100
[2019-03-13 16:47] LABS: Activated Partial Thrombo Time 33.2 seconds (23.6-34.0); INR 0.98 (0.9-1.1); Prothrombin Time 10.2 seconds (9.4-11.8)
--- NOTE | 2019-03-13 17:59 | History & Physical Report ---
*Admission Date: 03/13/19 *Chief complaint: SOA *History of present illness: Mr. Devine is a 69 yo male with history of metastatic cancer of unknown primary being treated as lung cancer by Dr. Jeff Sanchez who presented to the emergency department after several days of increased shortness of breath. Of note he was recently treated last month for an episode of healthcare acquired pneumonia. He states his symptoms had improved until a few days ago when he reports feeling more short of breath. He has had increase his oxygen at home from his baseline 3 to 4 L to 5 L and still was only having O2 sats in the mid 80s. He reports becoming quite dyspneic with bending over to cook pickled meat his shoes or walking to the bathroom. He presented to the ER due to the symptoms and was found to have increasing right sided pleural effusion encompassing 1/3-1/2 of his right hemithorax. Additionally was found to have some cardiomegaly and cephalization of his pulmonary vasculature concerning for CHF. Labs relatively on remarkable, afebrile, tachycardic. He was admitted for his worsening dyspnea and consideration for thoracentesis to relieve his symptoms. Patient is currently transitioning his care to Dr. Jimenez for pulmonology. Is on a steroid taper and down to 10 mg of prednisone daily. He is very clear that he will do anything to improve quality of his symptoms including thoracentesis if needed. 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), Chronic Obstructive Pulmonary Disease (COPD), Home Oxygen (4 L/M at rest and 8 L/M with activity) Denies:: Diabetes Mellitus Type 1, Diabetes Mellitus Type 2, Internal Pacemaker, MRSA *Have you ever received a pneumonia vaccine?: Yes *Have you received a flu vaccine this season?: Yes Other Surgeries: No: Pacemaker Amputation: No Fractures: No - *Social History Educational Level: Completed College Smoking Status: Former smoker Tobacco Type: cigarettes #Yrs smoked (if former smoker): 35 Alcohol Intake: never *Occupational Status:: retired Housing: house Household Members: spouse, children *Travel in the last 8 weeks: None - Psychiatric History Expresses thoughts of harming self/others: None Suicide Plan Description: No Plan Family Hx:: Cancer, Diabetes Review of Systems - Review of Systems Review of systems:: pertinent systems reviewed and negative unless documented below - *Neurologic Denies fainting Meds Home Medications Medication Instructions Recorded Confirmed Type Budesonide/Formoterol Fumarate 2 puff INHALATION BID 12/05/18 03/13/19 History [Symbicort 160-4.5 Mcg Inhaler] Lorlatinib [Lorbrena] 100 mg PO DAILY 12/05/18 03/13/19 History predniSONE [Deltasone 10mg tablet] 10 mg PO DAILY 12/31/18 03/13/19 History Cholecalciferol (Vitamin D3) 1,000 unit PO DAILY 01/21/19 03/13/19 History [Vitamin D3 1,000 Unit Cap] Pantoprazole Sodium [Protonix 40mg 40 mg PO DAILY 01/21/19 03/13/19 History tablet] Alectinib HCl [Alecensa] 600 mg PO BID 01/22/19 03/13/19 History Ipratropium/Albuterol Sulfate 3 ml IH Q6H 01/22/19 03/13/19 History [Duoneb 3mL neb] Allergies Allergy/AdvReac Type Severity Reaction Status Date / Time No Known Allergies Allergy Verified 01/21/19 23:18 Exam Vital signs and Labs for Last 24 Hours: Temp Pulse Resp BP Pulse Ox 98.3 F 104 H 21 147/83 H 88 L 03/13/19 17:25 03/13/19 17:25 03/13/19 17:25 03/13/19 17:25 03/13/19 17:25 Laboratory Results - last 24 hr 03/13/19 12:50: WBC 10.9 H, RBC 4.50 L, Hgb 13.0 L, Hct 40.7 L, MCV 90.4, MCH 28.8, MCHC 31.8, RDW 15.5, Plt Count 236, MPV 7.4, Neut % (Auto) 85.6 H, Lymph % (Auto) 9.9 L, [place] % (Auto) 3.7, Eos % (Auto) 0.6, Baso % (Auto) 0.3, Neut # (Auto) 9.3 H, Lymph # (Auto) 1.1, [place] # (Auto) 0.4, Eos # (Auto) 0.1, Baso # (Auto) 0.0, Total Counted 100, Neutrophils % (Manual) 90 H, Band Neutrophils % 1.0, Lymphocytes % (Manual) 7 L, Monocytes % (Manual) 2, Platelet Estimate Normal, RBC Morphology Normal 03/13/19 12:50: Sodium 138, Potassium 4.4, Chloride 102, Carbon Dioxide 22, Anion Gap 18.4 H, BUN 20 H, Creatinine 1.17, Estimated Creat Clear 72, Estimated GFR 62, Est GFR ( Amer) 75, Glucose 122 H, Calcium 9.7, Troponin I < 0.02 03/13/19 12:50: Lactate 1.6 03/13/19 12:50: B-Natriuretic Peptide 72 03/13/19 12:50: PT 10.2, INR 0.98, APTT 33.2 03/13/19 12:56: Specimen Source Right radial, O2 % 5lpm nc, ABG pH 7.48 H, ABG pCO2 30.2 L, ABG pO2 56.4 L, ABG HCO3 22.0, ABG Total CO2 22.9 L, ABG O2 Saturation 87 L*, ABG Base Excess -1.5, Juanito Test Acceptable I & O for Last 24 hours: Intake & Output 03/10/19 03/11/19 03/12/19 03/13/19 23:59 23:59 23:59 23:59 Output Total 800 / 800 Balance -800 / -800 Weight 81.278 kg - Constitutional mild distress, thin, chronically ill appearing - *Routine HEENT Exam Head: Present: normocephalic Eye: Present: EOMI, PERRL ENT: Present: mucous membranes moist Comments: Well-healed surgical scar posterior occiput consistent with previous brain s urgery/tumor removal - *Routine Neck Exam Present: supple, full ROM. Absent: JVD - *Routine Respiratory Exam Comments: Absent breath sounds right lower lung field, clear to auscultation upper lung reynolds with prolonged expiration, fine crackles left lung base - *Routine Cardiovascular Exam Present: RRR, Normal S1 - *Routine Abdominal Exam Present: soft, normoactive bowel sounds - *Routine Rectal Exam Patient deferred: visual exam - *Routine Exam Patient deferred: penile exam - *Routine Extremities Exam Absent: cyanosis, clubbing, edema - *Routine Skin Exam Present: intact, pallor, warm. Absent: cyanosis, erythema - *Routine Neurological Exam Present: alert, oriented X3. Absent: altered mental status Assessment and Plan (1) Acute on chronic respiratory failure with hypoxemia Current visit: Yes Status: Acute Category: Medical Code(s): J96.21 - Acute and chronic respiratory failure with hypoxia Suspect acute on chronic respiratory failure secondary to pleural effusion. Unclear etiology at this time. Differential diagnosis consists of parapneumonic, malignant, due to CHF, or secondary to pneumonitis from his radiation therapy and chemotherapy. Patient consented on risks and benefits of thoracentesis. Consent obtained. Plan to perform this afternoon for symptomatic relief and further diagnostic study. Will use ultrasound to to identify optimal location perform a bedside -Continue supplemental oxygen, nasal cannula as needed. Goal oxygen sats greater than 92 while awake, greater than 88% while asleep -Continue home breathing treatments -Aggressive pulmonary toilet (2) Congestive heart failure Current visit: Yes Status: Acute Qualifiers: Heart failure type: unspecified Category: Medical Code(s): I50.9 - Heart failure, unspecified BNP within the normal range. Diuresis performed in the ER, brisk response. Continue to monitor for improvement. Echo pending (3) Disseminated malignancy of unknown primary Current visit: No Status: Acute Category: Medical Code(s): C80.0 - Disseminated malignant neoplasm, unspecified; C80.1 - Malignant (primary) neoplasm, unspecified Complicates care. (4) Pneumonia Current visit: No Status: Acute Qualifiers: Pneumonia type: due to unspecified organism Laterality: right Lung location: lower lobe of lung Qualified Code(s): J18.1 - Lobar pneumonia, unspecified organism Category: Medical Code(s): J18.9 - Pneumonia, unspecified organism Continues to meet criteria for hospital-acquired pneumonia. Initiated on Levaquin in the ER. Monitor for improvement with antibiotics and steroids. Continue oxygen supplementation as per above. Fluid studies performed on aspirate from effusion. Management pending results - Assessment and plan all Dx Assessment and Plan for all problems:: If tolerates thoracentesis with improved oxygenation and no adverse events, may consider transitioning to oral antibiotics in the morning and possible discharge home tomorrow. Continues admission requirement to observe for respiratory distress and improvement after thoracentesis.
[2019-03-13 20:12] LABS: RBC,Body Fluid 20 cells/uL (< 10 X 10^3); TNC,Body Fluid 773 cells/uL (< 1000)
[2019-03-13 20:26] LABS: Appearance,Body Fld. Bloody
[2019-03-13 20:29] LABS: Mononuclear WBCs,Body Fluid 100 %; Polynuclear WBC,Body Fluid 0 %
[2019-03-14 06:48] LABS: Basophils % 0.2 % (0.1-2.0); Eosinophils % 0.3 % (0.1-12.0); Hematocrit 37.2 % (42.0-52.0); Hemoglobin 11.7 g/dL (14.1-18.0); Lymphocytes # 1.3 K/mm3 (0.7-4.5); Lymphocytes % 14.3 % (10-50); Mean Corpuscular HGB Conc 31.5 g/dL (31.8-35.4); Mean Corpuscular Hemoglobin 28.3 pg (27.0-31.2); Mean Corpuscular Volume 89.9 fl (80-94); Mean Platelet Volume 7.3 fl (7.4-10.4); Monocytes # 0.6 K/mm3 (0.1-1.0); Monocytes % 6.9 % (1.7-9.3); Neutrophils # 7.3 K/mm3 (1.8-7.8); Neutrophils % 78.2 % (37.0-80.0); Platelet Count 219 K/mm3 (142-424); Red Blood Count 4.13 M/mm3 (4.60-6.20); Red Cell Distribution Width 15.4 % (11.5-17.5); White Blood Count 9.3 K/mm3 (4.8-10.8)
[2019-03-14 06:53] LABS: Anion Gap 15.4 mEq/L (5-15); Calcium 9.3 mg/dL (8.5-10.1); Potassium 3.4 mmoL/L (3.5-5.1)
--- NOTE | 2019-03-14 07:27 | Pharmacy Consult Notes ---
[facility] Pharmacy VTE Monitoring - Patient Demographics Admission date: 03/13/19 Report Date: 03/14/19 Time: 07:27 Allergies/Adverse Reactions: Patient Allergies No Known Allergies Allergy (Verified 01/21/19 23:18) Height: 1.85 m Weight: 80.087 kg Patient Problems: Current Active Problems (Updated 03/13/19 @ 23:10 by Jay Lebron MD) Acute on chronic respiratory failure with hypoxemia (Acute) Emphysema lung (Acute) Congestive heart failure (Acute) - VTE Risk Labs: VTE Related Lab Results Hgb 11.7 g/dL (14.1-18.0) L 03/14/19 06:05 Hct 37.2 % (42.0-52.0) L 03/14/19 06:05 Plt Count 219 K/mm3 (142-424) 03/14/19 06:05 PT 10.2 seconds (9.4-11.8) 03/13/19 12:50 INR 0.98 (0.9-1.1) 03/13/19 12:50 APTT 33.2 seconds (23.6-34.0) 03/13/19 12:50 BUN 23 mg/dL (7-18) H 03/14/19 06:05 Creatinine 1.14 mg/dL (0.70-1.30) 03/14/19 06:05 Estimated Creat Clear 71 mL/min (50-200) 03/14/19 06:05 Was VTE Risk Assessment Performed: Yes VTE Score: 6 VTE Risk Level: Moderate Risk Clinical Trial Participant: No - Prophylaxis VTE Prophylaxis Ordered?: Yes Types of VTE Prophylaxis: TEDS Knee High
--- NOTE | 2019-03-14 08:33 | Progress Note ---
Internal Medicine - PN: Subj *Date: 03/14/19 *Time: 08:43 Interval history: Patient reports doing well over night and relief from right sided thoracentesis performed yesterday evening. Small right apical pneumothorax was noted on chest xray post procedure, repeat imaging this morning reports this is stable. Positive for dull pain over right lower chest. Symptomatically patient reports shortness of breath is significantly better. At home he had be requiring 5L NC with SPO2 staying around 88%, currently on 4 L NC SPO@ 89-93. IV levaquin is due today at 4pm. He would like to go home if appropriate but wait until later this afternoon. Exam Vital signs and Labs for Last 24 Hours: Temp Pulse Resp BP Pulse Ox 98.6 F 102 H 19 130/79 91 L 03/14/19 07:47 03/14/19 07:47 03/14/19 07:47 03/14/19 07:47 03/14/19 07:47 Laboratory Results - last 24 hr 03/13/19 12:50: WBC 10.9 H, RBC 4.50 L, Hgb 13.0 L, Hct 40.7 L, MCV 90.4, MCH 28.8, MCHC 31.8, RDW 15.5, Plt Count 236, MPV 7.4, Neut % (Auto) 85.6 H, Lymph % (Auto) 9.9 L, [place] % (Auto) 3.7, Eos % (Auto) 0.6, Baso % (Auto) 0.3, Neut # (Auto) 9.3 H, Lymph # (Auto) 1.1, [place] # (Auto) 0.4, Eos # (Auto) 0.1, Baso # (Auto) 0.0, Total Counted 100, Neutrophils % (Manual) 90 H, Band Neutrophils % 1.0, Lymphocytes % (Manual) 7 L, Monocytes % (Manual) 2, Platelet Estimate Normal, RBC Morphology Normal 03/13/19 12:50: Sodium 138, Potassium 4.4, Chloride 102, Carbon Dioxide 22, Anion Gap 18.4 H, BUN 20 H, Creatinine 1.17, Estimated Creat Clear 72, Estimated GFR 62, Est GFR ( Amer) 75, Glucose 122 H, Calcium 9.7, Troponin I < 0.02 03/13/19 12:50: Lactate 1.6 03/13/19 12:50: B-Natriuretic Peptide 72 03/13/19 12:50: PT 10.2, INR 0.98, APTT 33.2 03/13/19 12:56: Specimen Source Right radial, O2 % 5lpm nc, ABG pH 7.48 H, ABG pCO2 30.2 L, ABG pO2 56.4 L, ABG HCO3 22.0, ABG Total CO2 22.9 L, ABG O2 Saturation 87 L*, ABG Base Excess -1.5, Juanito Test Acceptable 03/13/19 13:00: Lactate Dehydrogenase 276 H 03/13/19 19:30: Fluid Source Pleural fluid, Fluid Volume 1500, Fluid Appearance Bloody, Fluid RBC (Auto) 20, Fld Tot Nucleated Cell 773, Fld Polynuclear WBCs % 0, Fld Mononuclear WBCs % 100 03/14/19 06:05: WBC 9.3, RBC 4.13 L, Hgb 11.7 L, Hct 37.2 L, MCV 89.9, MCH 28.3, MCHC 31.5 L, RDW 15.4, Plt Count 219, MPV 7.3 L, Neut % (Auto) 78.2, Lymph % (Auto) 14.3, [place] % (Auto) 6.9, Eos % (Auto) 0.3, Baso % (Auto) 0.2, Neut # (Auto) 7.3, Lymph # (Auto) 1.3, [place] # (Auto) 0.6, Eos # (Auto) 0.0, Baso # (Auto) 0.0 03/14/19 06:05: Sodium 141, Potassium 3.4 L D, Chloride 103, Carbon Dioxide 26, Anion Gap 15.4 H, BUN 23 H, Creatinine 1.14, Estimated Creat Clear 71, Estimated GFR 64, Est GFR ( Amer) 78, Glucose 109 H, Calcium 9.3 I & O for Last 24 hours: Intake & Output 03/11/19 03/12/19 03/13/19 03/14/19 23:59 23:59 23:59 23:59 Intake Total 360 / 360 540 / 540 Output Total 2300 / 2300 Balance -1939 / -1939 540 / 540 Weight 179 lb 3 oz 176 lb 9 oz Microbiology Reports for the Last 24 Hours: Microbiology 03/13/19 19:30 Pleural Fluid - Aspirate Gram Stain - Final - Constitutional no acute distress, chronically ill appearing - *Routine HEENT Exam Head: Present: normocephalic, atraumatic Eye: Present: EOMI, PERRL ENT: Present: mucous membranes moist - *Routine Respiratory Exam Present: decreased breath sounds, crackles, diminished air movement. Absent: accessory muscle use - *Routine Cardiovascular Exam Present: RRR, Normal S1, Normal S2. Absent: irregular rhythm - *Routine Abdominal Exam Present: soft, normoactive bowel sounds. Absent: tenderness - *Routine Extremities Exam Present: full ROM. Absent: cyanosis, edema - *Routine Skin Exam Present: intact, dry, pallor. Absent: cyanosis - *Routine Neurological Exam Present: alert, oriented X3 - Routine Psychiatric Exam Present: normal affect Assessment and Plan (1) Acute on chronic respiratory failure with hypoxemia Current visit: Yes Status: Acute Category: Medical Code(s): J96.21 - Acute and chronic respiratory failure with hypoxia (2) Congestive heart failure Current visit: Yes Status: Acute Qualifiers: Heart failure type: unspecified Category: Medical Code(s): I50.9 - Heart failure, unspecified (3) Disseminated malignancy of unknown primary Current visit: No Status: Acute Category: Medical Code(s): C80.0 - Disseminated malignant neoplasm, unspecified; C80.1 - Malignant (primary) neoplasm, unspecified (4) Pneumonia Current visit: No Status: Acute Qualifiers: Pneumonia type: due to unspecified organism Laterality: right Lung location: lower lobe of lung Qualified Code(s): J18.1 - Lobar pneumonia, unspecified organism Category: Medical Code(s): J18.9 - Pneumonia, unspecified organism - Assessment and plan all Dx Assessment and Plan for all problems:: Patient will be monitored today, encourage increase of physical activity and use of incentive spirometer. He will receive IV levaquin at 2 pm and could discharge home after if continuing to improve. Will go home on oral Levaquin. I will return to see the patient this afternoon.
--- NOTE | 2019-03-14 10:58 | Cardiology Report ---
PROCEDURE: 2-D M-mode and color Doppler study INDICATIONS FOR THE TEST: Chest pain COPD+ Heart Murmur Tobacco SmokingEX Palpitations Fatigue Syncope Edema Hypertension Diabetes Mellitus Rheumatic Fever SOB+OCHOA Obesity Hyperlipidemia Family History HD Additional History METS CA LUNG BRAIN, HOME O2, SP THORACENTESIS 03/13/19, RADIATION CHEMO, PERICARDIAL EFFUSION PATIENT INFORMATION HEIGHT: 73 WEIGHT:179 GENDER: Male B/P:147/83 2-D/M-MODE INTERPRETATION: 2-D MEASUREMENTS OBSERVED VALUES IN CMS Right Ventricular Dimension (RVDd) 2.6 Interventricular Septum (Thickness)(IVsd) 1.0 Left Ventricular Internal Dimensions(LVIDd) 5.4 Left Ventricular Posterior Wall (Thickness)(LVPWd) 1.0 Aortic Root 3.3 Aortic Cusp Separation 2.1 Left Atrial Dimensions (LAD) 3.9 2D 1. Left atrium is mildly enlarged, left ventricle is normal size, visually estimated ejection fraction 55% with no regional wall motion abnormality. 2. The right atrium and right ventricle are mildly enlarged with normal contractility. 3. The aortic valve is minimally thickened and fibrosed. 4. The mitral and tricuspid valve leaflets are grossly normal. 5. The pulmonic valve is poorly present. 6. No significant pericardial effusion noted. DOPPLER INTERROGATION: Doppler interrogation of the aortic, mitral and tricuspid valvular presence of mild mitral and tricuspid regurgitation, tricuspid regurgitation jet velocity is inadequate for calculation of the right ventricular systolic pressure, grade 1 diastolic dysfunction seen without tissue Doppler evidence of raised left atrial pressure. CONCLUSION: 1. Mildly enlarged left atrium, normal left ventricular size, visually estimated ejection fraction 55% with no regional wall motion abnormality, grade 1 diastolic dysfunction seen without tissue Doppler evidence of raised left atrial pressure. 2. Mildly enlarged right ventricle with normal contractility. 3. Mild mitral and tricuspid regurgitation. 4. No significant pericardial effusion noted.
--- NOTE | 2019-03-15 08:57 | Discharge Summary ---
General - General Admission date:: 03/13/19 Discharge date: 03/15/19 HPI HPI: Mr. Devine is a 69 yo male with history of metastatic cancer of unknown primary being treated as lung cancer by Dr. Jeff Sanchez who presented to the emergency department after several days of increased shortness of breath. Of note he was recently treated last month for an episode of healthcare acquired pneumonia. He states his symptoms had improved until a few days ago when he reports feeling more short of breath. He has had increase his oxygen at home from his baseline 3 to 4 L to 5 L and still was only having O2 sats in the mid 80s. 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 He presented to the ER due to the symptoms and was found to have increasing right sided pleural effusion encompassing 1/3-1/2 of his right hemithorax. Additionally was found to have some cardiomegaly and cephalization of his pulmonary vasculature concerning for CHF. Labs relatively on remarkable, afebrile, tachycardic. He was admitted for his worsening dyspnea and consideration for thoracentesis to relieve his symptoms. Patient is currently transitioning his care to Dr. Jimenez for pulmonology. Is on a steroid taper and down to 10 mg of prednisone daily. He is very clear that he will do anything to improve quality of his symptoms including thoracentesis if needed. Hospital Course Hospital Course: Patient was admitted to the hospital. Intravenous levofloxacin was started and patient responded fairly well to this. Thoracentesis was performed, please see procedure note for details. This resulted in a very nice improvement in symptomatology. Very minimal residual pneumothorax was noted but not clinically significant. Over the next night the patient improved very nicely, last night was able to sleep comfortably on his baseline home 4 L nasal cannula O2. This morning he is feeling good, ate a good breakfast, up and about the room and wishes to go home. Plan will be to discharge home with levofloxacin. He will maintain his current prednisone dose of 20 mg daily and follow-up with his new hospice consultant, Dr. Jimenez on March 17. Objective Vital signs: Temp Pulse Resp BP Pulse Ox 98.1 F 86 20 127/67 90 L 03/15/19 08:00 03/15/19 08:00 03/15/19 08:00 03/15/19 08:00 03/15/19 08:00 Narrative: Pleasant, alert, oriented x3. Heart rate regular. No murmurs. Abdomen soft and nontender. Lungs have symmetric air entry. Some scattered rhonchi with minimal end expiratory wheezing. Old clubbing noted. No cyanosis. No peripheral edema. 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 (4) Pneumonia Status: Acute Discharge Plan - Patient Discharge Instructions ACTIVITY: Continue current activity DIET: continue same diet Patient Instructions: Pleural Effusion, DI for Heart Failure, DI for Chronic Obstructive Pulmonary Disease, DI for Respiratory Failure - Follow up Plan Follow up with: Jay Jimenez MD [Consulting Physician] - 03/18/19 Disposition: Home, Self-Longterm Medications: Home Medications Medication Instructions Recorded Confirmed Type Budesonide/Formoterol Fumarate 2 puff INHALATION BID 12/05/18 03/13/19 History [Symbicort 160-4.5 Mcg Inhaler] Lorlatinib [Lorbrena] 100 mg PO DAILY 12/05/18 03/13/19 History predniSONE [Deltasone 10mg tablet] 10 mg PO DAILY 12/31/18 03/13/19 History Cholecalciferol (Vitamin D3) 1,000 unit PO DAILY 01/21/19 03/13/19 History [Vitamin D3 1,000 Unit Cap] Pantoprazole Sodium [Protonix 40mg 40 mg PO DAILY 01/21/19 03/13/19 History tablet] Alectinib HCl [Alecensa] 600 mg PO BID 01/22/19 03/13/19 History Ipratropium/Albuterol Sulfate 3 ml IH Q6H 01/22/19 03/13/19 History [Duoneb 3mL neb] levoFLOXacin [Levaquin 500mg 500 mg PO DAILY #7 tab 03/15/19 Rx tab] Prescriptions/Medication Reconciliation: New levoFLOXacin [Levaquin 500mg tab] 500 mg PO DAILY #7 tab Continued Lorlatinib [Lorbrena] 100 mg PO DAILY Budesonide/Formoterol Fumarate [Symbicort 160-4.5 Mcg Inhaler] 2 puff INHALATION BID predniSONE [Deltasone 10mg tablet] 10 mg PO DAILY Cholecalciferol (Vitamin D3) [Vitamin D3 1,000 Unit Cap] 1,000 unit PO DAILY Ipratropium/Albuterol Sulfate [Duoneb 3mL neb] 3 ml IH Q6H Pantoprazole Sodium [Protonix 40mg tablet] 40 mg PO DAILY Alectinib HCl [Alecensa] 600 mg PO BID
== END 2019-03-15 11:36 | disposition home or self-care (01) | DRG 189 ==
LOC: ER 12:45 → 2ND 16:44
PROVIDERS: ADMIT Internal Medicine Adolescent Medicine; ATTEND Internal Medicine Adolescent Medicine
CPT/HCPCS: 36415; 71010; 71020; 71045; 71046; 80048; 82803; 83605; 83615; 83880; 84484; 85007; 85025; 85610; 85730; 87040; 87070; 87077; 87205; 89051; 93005; 93306; 94640; 94761; 96365; 96375; 99284; J1956

== ENCOUNTER 2019-03-23 13:27 | Inpatient (IN) ==
[2019-03-23 14:04] LABS: Basophils % 0.2 % (0.1-2.0); Eosinophils # 0.1 K/mm3 (0.0-0.4); Eosinophils % 0.8 % (0.1-12.0); Hematocrit 38.3 % (42.0-52.0); Hemoglobin 11.8 g/dL (14.1-18.0); Lymphocytes # 0.8 K/mm3 (0.7-4.5); Lymphocytes % 8.7 % (10-50); Mean Corpuscular HGB Conc 30.7 g/dL (31.8-35.4); Mean Platelet Volume 7.7 fl (7.4-10.4); Monocytes # 0.3 K/mm3 (0.1-1.0); Monocytes % 2.8 % (1.7-9.3); Neutrophils # 8.2 K/mm3 (1.8-7.8); Neutrophils % 87.5 % (37.0-80.0); Platelet Count 221 K/mm3 (142-424); Red Blood Count 3.99 M/mm3 (4.60-6.20); Red Cell Distribution Width 16.1 % (11.5-17.5); White Blood Count 9.4 K/mm3 (4.8-10.8)
[2019-03-23 14:11] LABS: Alanine Aminotransferase 16 U/L (12-78); Albumin Level 2.5 gm/dL (3.4-5.0); Albumin/Globulin Ratio 0.6 (1.1-1.8); Alkaline Phosphatase 99 U/L (46-116); Aspartate Amino Transferase 69 U/L (15-37); Bilirubin,Total 0.3 mg/dL (0.2-1.0); Blood Urea Nitrogen 21 mg/dL (7-18); Carbon Dioxide 24 mmol/L (21.0-32.0); Chloride 103 mmol/L (98-107); Globulin 4.3 gm/dl (1.3-3.2); Glucose 243 mg/dL (74-106); Sodium 139 mmol/L (136-145); Total Protein,Serum 6.8 gm/dL (6.4-8.2)
[2019-03-23 14:20] LABS: Lymphocytes % 13 % (10-50); Monocytes % 4 % (2-9); Neutrophils % 83 % (42-76); RBC Morphology Normal; Total Cells Counted 100
[2019-03-23 14:35] LABS: ABG Base Excess -3.4 mmol/L (-2.4-2.3); ABG HCO3 20.2 mmhg (22.0-26.0); ABG Oxygen Saturation 84 % (90-100); ABG PCO2 28.1 mmhg (35.0-45.0); ABG PH 7.47 mmol/L (7.35-7.45)
--- NOTE | 2019-03-23 14:37 | Emergency Department Note ---
ED Disposition Clinical Impression: COPD exacerbation, Right lower lobe consolidation, Pleural effusion, right, End stage COPD Disposition: Still a Patient Condition on Discharge: Fair Referrals: Provider,Referral, [Referring] - - Critical Care Critical Care Time: No Attestation: On 03/23/19, the high probability of a clinically significant, sudden or life threatening deterioration of the following system(s) required my full and direct attention, intervention and personal management. The time I documented below is in addition to time spent performing reported procedures but includes the follo wing listed in this critical care notation. Medical Decision Making - Aaron Inquiry Pt receiving controlled substance: No Aaron was queried for this patient: No Vital Signs: 03/23/19 13:07 03/23/19 14:50 03/23/19 15:00 Temperature 97.8 F Temperature Source Oral Pulse Rate [Right Brachial] 98 H 93 H 90 Respiratory Rate 28 H Blood Pressure [Right Arm] 163/87 H 132/78 148/78 H Blood Pressure Mean [Right Arm] 112 96 101 Blood Pressure Source [Right Arm] Automatic Cuff Blood Pressure Position [Right Arm] Sitting 02 Sat by Pulse Oximetry 90 L 97 Oxygen Delivery Method Nasal Cannula Oxygen Flow Rate (LPM) 4 03/23/19 16:21 Temperature Temperature Source Pulse Rate [Right Brachial] 76 Respiratory Rate Blood Pressure [Right Arm] 138/66 Blood Pressure Mean [Right Arm] 90 Blood Pressure Source [Right Arm] Blood Pressure Position [Right Arm] 02 Sat by Pulse Oximetry 94 L Oxygen Delivery Method Oxygen Flow Rate (LPM) - Lab Data Lab Results 03/23/19 13:40: D-Dimer > 5000 H* 03/23/19 13:45: WBC 9.4, RBC 3.99 L, Hgb 11.8 L, Hct 38.3 L, MCV 96.0 H, MCH 29.5, MCHC 30.7 L, RDW 16.1, Plt Count 221, MPV 7.7, Neut % (Auto) 87.5 H, Lymph % (Auto) 8.7 L, [place] % (Auto) 2.8, Eos % (Auto) 0.8, Baso % (Auto) 0.2, Neut # (Auto) 8.2 H, Lymph # (Auto) 0.8, [place] # (Auto) 0.3, Eos # (Auto) 0.1, Baso # (Auto) 0.0, Total Counted 100, Neutrophils % (Manual) 83 H, Lymphocytes % (Manual) 13, Monocytes % (Manual) 4, Platelet Estimate Normal, RBC Morphology Normal 03/23/19 13:45: Sodium 139, Potassium 4.0, Chloride 103, Carbon Dioxide 24, Anion Gap 16.0 H, BUN 21 H, Creatinine 1.25, Estimated Creat Clear 64, Estimated GFR 58 L, Est GFR ( Amer) 70, Glucose 243 H, Calcium 9.0, Total Bilirubin 0.3, AST 69 H, ALT 16, Alkaline Phosphatase 99, Troponin I < 0.02, Total Protein 6.8, Albumin 2.5 L, Globulin 4.3 H, Albumin/Globulin Ratio 0.6 L 03/23/19 13:45: B-Natriuretic Peptide 67 03/23/19 14:09: Specimen Source Left radial, O2 % 36, ABG pH 7.47 H, ABG pCO2 28.1 L, ABG pO2 52.0 L, ABG HCO3 20.2 L, ABG Total CO2 21.0 L, ABG O2 Saturation 84 L*, ABG Base Excess -3.4 L, Juanito Test Acceptable 03/23/19 14:25: Lactate 1.9 Result diagrams: 03/23/19 13:45 03/23/19 13:45 Orders (Tests/Meds): ED MEDICATIONS Generic Name Dose Route Start Last Admin Trade Name Freq PRN Reason Stop Dose Admin Enoxaparin Sodium 80 mg 03/23/19 14:45 03/23/19 14:59 Lovenox 80mg/0.8ml Syringe SQ 04/22/19 14:44 80 mg Q12H LAKE Administration Cefepime HCl 1 gm/ Sodium 50 mls @ 100 mls/hr 03/23/19 15:00 03/23/19 14:59 Chloride IV 04/06/19 14:59 100 mls/hr Q12H LAKE Administration Protocol Discontinued Medications Generic Name Dose Route Start Last Admin Trade Name Freq PRN Reason Stop Dose Admin Ioversol 70 ml 03/23/19 15:25 03/23/19 15:26 Rad-Optiray 350 100ml Vial IV 03/23/19 15:26 70 ml ONCE ONE Administration Protocol Sodium Chloride 10 ml 03/23/19 15:25 03/23/19 15:26 Rad-Saline Flush 10ml Syringe IV 03/23/19 15:26 10 ml ONCE ONE Administration ORDERS Category Date Time Status CTA Chest [CT angio chest] Stat Cat Scan 03/23/19 14:46 Taken Blood Culture Stat Micro 03/23/19 14:30 Received - Radiology Data #1 Image(s): Chest Image Reviewed: Yes I reviewed the patient's radiology image Preliminary Findings: Abnormal chest X-ray: Chronic changes cannot exclude right lower lobe infiltrates - CT Data CT Scan: Chest Time Received: 16:[address] Reviewed: Yes: I have viewed the radiologist's interpretation Preliminary Findings: Abnormal Findings Narrative: CT scan was negative for PE positive for COPD pulmonary fibrosis/consolidation/atelectasis. - ECG Data Tracing #1 Normal sinus rhythm 100/min baseline artifact no acute ST segment or T wave changes. ECG initial impression date: 03/23/19 ECG initial impression time: 13:20 Medical Decision Narrative: Mr. Devine has advanced did lung disease he receives his pulmonary care by Dr. Jimenez from [facility] and his oncology treatment from Dr. Sanchez at [facility]. CT scan can be summarized as following:CT scan was negative for PE positive for COPD pulmonary fibrosis/consolidation/atelectasis. [address] Lebron who is familiar with this case from the prior admission and he felt like in another admission to this facility will not benefit him, he has done a thoracentesis on him and we reviewed the cytology results that was negative for malignancy positive for inflammatory cells. I discussed with the patient the need to go to a tertiary center for more advanced care and possible bronchoscopy, was agreeable to go to [facility]. [address] Duran from pulmonary and ICU who has no beds and was placed on the waiting list. [address] Lebron to admit untill a step down bed is available in ICU, continue cefepime 1 g every 12 and 6 L nasal cannula. He will report to Dr. Wakefield regarding the circumstances of admission Resp/SOB HPI - General Chief Complaint: Shortness of Breath/Dyspnea Stated Complaint: shortness of air Time Seen by Provider: 03/23/19 13:30 Mode of Arrival: EMS Source of Information: Patient, Relative Limitations: No Limitations Description of Symptoms (Recalled from ER Triage Doc. by RN): shortness of air related possibly to fluid on lungs - History of Present Illness 69 years old white male with long-standing history of COPD oxygen and steroid- dependent. He is a patient of Dr. Jimenez, he saw him last week with no c hange in management. Last week he was admitted to the hospital where he received diuresis and removing it with 1 L of fluid and was discharged in a stable condition. Since yesterday has been experiencing shortness of breath he had to increase his oxygen from 4 L to 5 L which is maximum can be done at home. The patient denies having fever but admits to nonproductive cough, denies having wheezing or hemoptysis. The patient denies having chest pain palpitations nausea vomiting or diarrhea. MD Complaint: shortness of breath, cough Onset (ago): day(s) Severity: moderate Consistency/Duration: intermittent Relieving factors: oxygen, rest Exacerbating factors: exertion Known history of: COPD, congestive heart failure Associated symptoms: denies other symptoms, cough - Related Data Home oxygen amount: 4 liters Home Medications Medication Instructions Recorded Confirmed Budesonide/Formoterol Fumarate 2 puff INHALATION BID 12/05/18 03/23/19 [Symbicort 160-4.5 Mcg Inhaler] Lorlatinib [Lorbrena] 100 mg PO DAILY 12/05/18 03/23/19 predniSONE [Deltasone 10mg tablet] 10 mg PO DAILY 12/31/18 03/23/19 Cholecalciferol (Vitamin D3) 1,000 unit PO DAILY 01/21/19 03/23/19 [Vitamin D3 1,000 Unit Cap] Pantoprazole Sodium [Protonix 40mg 40 mg PO DAILY 01/21/19 03/23/19 tablet] Alectinib HCl [Alecensa] 600 mg PO BID 01/22/19 03/23/19 Ipratropium/Albuterol Sulfate 3 ml IH Q6H 01/22/19 03/23/19 [Duoneb 3mL neb] levoFLOXacin [Levaquin 500mg 500 mg PO DAILY 03/23/19 03/23/19 tab] Allergies Allergy/AdvReac Type Severity Reaction Status Date / Time No Known Allergies Allergy Verified 01/21/19 23:18 [facility] History - Hepatitis A Screen Drug use history?: No High risk sexual behaviors?: No History of sexually transmitted infection?: No Currently employed?: No Childcare worker?: No Do you have indoor plumbing?: Yes Do you have electricity?: Yes Attestation statement:: This patient has been screened for Hepatitis A risk factors. 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), Chronic Obstructive Pulmonary Disease (COPD), Home Oxygen (4 L/M at rest and 8 L/M with activity) Denies:: Diabetes Mellitus Type 1, Diabetes Mellitus Type 2, Internal Pace maker, MRSA Comment: Pneumonitis secondary to chemotherapeutic agent Other Surgeries: No: Pacemaker Amputation: No Fractures: No - Social History Smoking Status: Former smoker Tobacco Type: cigarettes #Yrs smoked (if former smoker): 35 Alcohol Intake: never Occupational Status: retired Housing: house Household Members: spouse, children Family Hx:: Cancer, Diabetes ROS Obtained: Yes All systems reviewed & no additional complaints Physical Exam - General General appearance: alert, in no apparent distress - Head Head exam: atraumatic, normocephalic, normal inspection - Eye Eye exam: Present: normal appearance, PERRL, EOMI. Absent: scleral icterus, nystagmus - ENT ENT exam: Present: normal exam, normal oropharynx, mucous membranes moist, TM's normal bilaterally, normal external ear exam - Neck Neck exam: Present: normal inspection, full ROM, trachea midline. Absent: tenderness, meningismus, lymphadenopathy - Chest Chest inspection: Present: normal inspection, symmetric chest wall rise. Absent: tenderness - Respiratory Respiratory exam: Present: normal lung sounds bilaterally, other (Patient is in no cardiopulmonary distress has good inspiratory and expiratory effort with no wheezing. ). Absent: respiratory distress, wheezes - Cardiovascular Cardiovascular exam: Present: regular rate, normal rhythm, normal heart sounds. Absent: JVD - Abdominal Exam Abdominal exam: Present: soft, normal bowel sounds. Absent: distention, tenderness, guarding, rebound, rigidity - Extremities Exam Extremities exam: Present: normal inspection, full ROM, normal capillary refill. Absent: calf tenderness - Back Exam Back exam: Present: normal inspection. Absent: tenderness, CVA tenderness (R), CVA tenderness (L) - Neurological Exam Neurological exam: Present: alert, oriented X3, CN II-XII intact, motor sensory deficit, reflexes normal - Psychiatric Psychiatric exam: Present: normal affect, normal mood - Skin Skin exam: Present: warm, dry, intact, normal color - Lymphatic Lymphatic Findings: no adenopathy
[2019-03-23 14:38] LABS: Allen's Test Acceptable; Oxygen 36 %
[2019-03-24 05:56] LABS: Basophils % 0.5 % (0.1-2.0); Eosinophils # 0.2 K/mm3 (0.0-0.4); Eosinophils % 2.8 % (0.1-12.0); Hematocrit 36.2 % (42.0-52.0); Hemoglobin 11.2 g/dL (14.1-18.0); Lymphocytes # 1.2 K/mm3 (0.7-4.5); Mean Corpuscular HGB Conc 31.1 g/dL (31.8-35.4); Mean Platelet Volume 7.8 fl (7.4-10.4); Monocytes # 0.5 K/mm3 (0.1-1.0); Monocytes % 6.3 % (1.7-9.3); Neutrophils # 6.3 K/mm3 (1.8-7.8); Neutrophils % 76.5 % (37.0-80.0); Platelet Count 210 K/mm3 (142-424); Red Cell Distribution Width 16.1 % (11.5-17.5); White Blood Count 8.2 K/mm3 (4.8-10.8)
[2019-03-24 06:06] LABS: Anion Gap 14.1 mEq/L (5-15)
--- NOTE | 2019-03-24 07:25 | Pharmacy Consult Notes ---
[facility] Pharmacy VTE Monitoring - Patient Demographics Admission date: 03/23/19 Report Date: 03/24/19 Time: 07:25 Allergies/Adverse Reactions: Patient Allergies No Known Allergies Allergy (Verified 03/23/19 18:45) Height: 1.85 m Weight: 83.688 kg Patient Problems: Current Active Problems (Updated 03/23/19 @ 16:37 by Michelle Haley MD) COPD exacerbation (Acute) Right lower lobe consolidation (Acute) Pleural effusion, right (Acute) End stage COPD (Acute) - VTE Risk Labs: VTE Related Lab Results Hgb 11.2 g/dL (14.1-18.0) L 03/24/19 05:24 Hct 36.2 % (42.0-52.0) L 03/24/19 05:24 Plt Count 210 K/mm3 (142-424) 03/24/19 05:24 BUN 18 mg/dL (7-18) 03/24/19 05:24 Creatinine 1.07 mg/dL (0.70-1.30) 03/24/19 05:24 Estimated Creat Clear 79 mL/min (50-200) 03/24/19 05:24 Was VTE Risk Assessment Performed: Yes VTE Score: 4 VTE Risk Level: Low Risk - Prophylaxis VTE Prophylaxis Ordered?: Yes Types of VTE Prophylaxis: TEDS Knee High Location of Applied Device: Bilateral Lower Extremeties - VTE Diagnosis Confirmed Treatment or plan recommended: Continue Current Treatment
--- NOTE | 2019-03-24 07:32 | History & Physical Report ---
*Admission Date: 03/23/19 *Chief complaint: Shortness of breath *History of present illness: 69-year-old male with presumed lung cancer with bony metastases of the thoracic spine and ribs presented to the emergency department with worsening shortness of breath over the preceding 24 hours. Patient tells me as of , March 20 he felt like his breathing was not labored and at baseline. He is oxygen dependent. On Sunday he developed shortness of breath that worsened over the course of the day until he presented to the emergency department. In the emergency department imaging revealed reaccumulation of a right sided pleural effusion both on x-ray and CT scan. Effusion on x-ray appears slightly larger than it did approximately 10 days prior when patient was hospitalized for shortness of breath. At that hospitalization patient underwent a successful thoracentesis with improvement in his dyspnea. There was no significant pneumonia identified after thoracentesis. On CT scan there is a questionable infiltrate versus pulmonary collapse caused by the effusion. Patient was admitted. On-call physician suggested patient be transferred to [facility] and that arrangement has already been made and at this time there is no bed available. Patient denies fevers, chills, significant sputum production. Last Sunday patient reestablish care with [facility] putty mixer and applier Dr. Jay Jimenez. His oncologist is Dr. 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 No: Pacemaker Amputation: No Fractures: No - *Social History Educational Level: Completed College Smoking Status: Former smoker Tobacco Type: cigarettes #Yrs smoked (if former smoker): 35 Alcohol Intake: never *Occupational Status:: retired Housing: house Household Members: spouse, children *Travel in the last 8 weeks: None - Psychiatric History Expresses thoughts of harming self/others: None Suicide Plan Description: No Plan Family Hx:: Cancer, Diabetes Review of Systems - Review of Systems Review of systems:: other (See HPI), pertinent systems reviewed and negative unless documented below Meds Home Medications Medication Instructions Recorded Confirmed Type Budesonide/Formoterol Fumarate 2 puff INHALATION BID 12/05/18 03/23/19 History [Symbicort 160-4.5 Mcg Inhaler] Lorlatinib [Lorbrena] 100 mg PO DAILY 12/05/18 03/23/19 History predniSONE [Deltasone 10mg tablet] 20 mg PO DAILY 12/31/18 03/23/19 History Cholecalciferol (Vitamin D3) 1,000 unit PO DAILY 01/21/19 03/23/19 History [Vitamin D3 1,000 Unit Cap] Pantoprazole Sodium [Protonix 40mg 40 mg PO DAILY 01/21/19 03/23/19 History tablet] Ipratropium/Albuterol Sulfate 3 ml IH Q6H 01/22/19 03/23/19 History [Duoneb 3mL neb] Ferrous Sulfate [Iron] 325 mg PO DAILY 03/23/19 03/23/19 History Allergies Allergy/AdvReac Type Severity Reaction Status Date / Time No Known Allergies Allergy Verified 03/23/19 18:45 Exam Vital signs and Labs for Last 24 Hours: Temp Pulse Resp BP Pulse Ox 97.7 F 80 24 99/49 L 90 L 03/24/19 04:00 03/24/19 06:33 03/24/19 06:00 03/24/19 06:00 03/24/19 06:33 Laboratory Results - last 24 hr 03/23/19 13:40: D-Dimer > 5000 H* 03/23/19 13:45: WBC 9.4, RBC 3.99 L, Hgb 11.8 L, Hct 38.3 L, MCV 96.0 H, MCH 29.5, MCHC 30.7 L, RDW 16.1, Plt Count 221, MPV 7.7, Neut % (Auto) 87.5 H, Lymph % (Auto) 8.7 L, [place] % (Auto) 2.8, Eos % (Auto) 0.8, Baso % (Auto) 0.2, Neut # (Auto) 8.2 H, Lymph # (Auto) 0.8, [place] # (Auto) 0.3, Eos # (Auto) 0.1, Baso # (Auto) 0.0, Total Counted 100, Neutrophils % (Manual) 83 H, Lymphocytes % (Manual) 13, Monocytes % (Manual) 4, Platelet Estimate Normal, RBC Morphology Normal 03/23/19 13:45: Sodium 139, Potassium 4.0, Chloride 103, Carbon Dioxide 24, Anion Gap 16.0 H, BUN 21 H, Creatinine 1.25, Estimated Creat Clear 64, Estimated GFR 58 L, Est GFR ( Amer) 70, Glucose 243 H, Calcium 9.0, Total Bilirubin 0.3, AST 69 H, ALT 16, Alkaline Phosphatase 99, Troponin I < 0.02, Total Protein 6.8, Albumin 2.5 L, Globulin 4.3 H, Albumin/Globulin Ratio 0.6 L 03/23/19 13:45: B-Natriuretic Peptide 67 03/23/19 14:09: Specimen Source Left radial, O2 % 36, ABG pH 7.47 H, ABG pCO2 28.1 L, ABG pO2 52.0 L, ABG HCO3 20.2 L, ABG Total CO2 21.0 L, ABG O2 Saturation 84 L*, ABG Base Excess -3.4 L, Juanito Test Acceptable 03/23/19 14:25: Lactate 1.9 03/24/19 05:24: WBC 8.2, RBC 3.80 L, Hgb 11.2 L, Hct 36.2 L, MCV 95.0 H, MCH 29.6, MCHC 31.1 L, RDW 16.1, Plt Count 210, MPV 7.8, Neut % (Auto) 76.5, Lymph % (Auto) 14.0, [place] % (Auto) 6.3, Eos % (Auto) 2.8, Baso % (Auto) 0.5, Neut # (Auto) 6.3, Lymph # (Auto) 1.2, [place] # (Auto) 0.5, Eos # (Auto) 0.2, Baso # (Auto) 0.0 03/24/19 05:24: Sodium 140, Potassium 4.1, Chloride 106, Carbon Dioxide 24, Anion Gap 14.1, BUN 18, Creatinine 1.07, Estimated Creat Clear 79, Estimated GFR 69, Est GFR ( Amer) 83, Glucose 91 D, Calcium 9.0 I & O for Last 24 hours: Intake & Output 03/21/19 03/22/19 03/23/19 03/24/19 11:59 11:59 11:59 11:59 Intake Total 1440 / 1440 Balance 1440 / 1440 Weight 184 lb 8 oz Narrative: Patient is sitting up in bed this morning with facemask on. He does not appear to be in any respiratory distress. ENT exam reveals normal external ears, dry oropharynx from use of facemask oxygen. Neck has no carotid bruits. Lungs are clear anteriorly and very distant at the right base. Left base is distant with crackles. Heart has a regular rate and rhythm. Abdomen is thin and soft. Extremities are without edema. Neurologically the patient has no deficits. Assessment and Plan (1) Pleural effusion, right Current visit: Yes Status: Acute Category: Medical Code(s): J90 - Pleural effusion, not elsewhere classified (2) Emphysema lung Current visit: No Status: Acute Category: Medical Code(s): J43.9 - Emphysema, unspecified (3) Acute on chronic respiratory failure with hypoxemia Current visit: No Status: Chronic Category: Medical Code(s): J96.21 - Acute and chronic respiratory failure with hypoxia (4) Disseminated malignancy of unknown primary Current visit: No Status: Chronic Category: Medical Code(s): C80.0 - Disseminated malignant neoplasm, unspecified; C80.1 - Malignant (primary) neoplasm, unspecified - Assessment and plan all Dx Assessment and Plan for all problems:: 1. Patient is been placed on broad-spectrum antibiotics for possibility of pneumonia 2. We will see if we can get the patient on the radiology scheduled for an ultrasound-guided thoracentesis today. When patient had thoracentesis a little over a week ago pleural fluid was examined and there were no malignant cells nor was there bacterial infection 3. We will continue patient's home medications.
[2019-03-24 13:04] LABS: Albumin Level 2.4 gm/dL (3.4-5.0); Albumin/Globulin Ratio 0.6 (1.1-1.8); Anion Gap 15.1 mEq/L (5-15); Bilirubin,Total 0.4 mg/dL (0.2-1.0); Calcium 9.1 mg/dL (8.5-10.1); Globulin 4.2 gm/dl (1.3-3.2); Total Protein,Serum 6.6 gm/dL (6.4-8.2)
[2019-03-24 16:27] LABS: RBC,Body Fluid 20 cells/uL (< 10 X 10^3); TNC,Body Fluid 934 cells/uL (< 1000)
[2019-03-24 16:35] LABS: Appearance,Body Fld. Bloody
--- NOTE | 2019-03-24 16:39 | Progress Note ---
Internal Medicine - PN: Subj *Date: 03/24/19 *Time: 16:47 Interval history: Patient reports significant relief from right sided thoracentesis today that yielded 2,200mL. Pre procedure he had been requiring 50% venturi mask. Since thor he has been titrated down to 5L NC and maintaining SPO2 >88%. He does continue to get short of breath/hypoxic with talking extended amounts of time. Has not been OOB since procedure. Exam Vital signs and Labs for Last 24 Hours: Temp Pulse Resp BP Pulse Ox 97.6 F 94 H 24 115/72 91 L 03/24/19 16:00 03/24/19 16:00 03/24/19 16:00 03/24/19 16:00 03/24/19 16:18 Laboratory Results - last 24 hr 03/24/19 05:24: WBC 8.2, RBC 3.80 L, Hgb 11.2 L, Hct 36.2 L, MCV 95.0 H, MCH 29.6, MCHC 31.1 L, RDW 16.1, Plt Count 210, MPV 7.8, Neut % (Auto) 76.5, Lymph % (Auto) 14.0, [place] % (Auto) 6.3, Eos % (Auto) 2.8, Baso % (Auto) 0.5, Neut # (Auto) 6.3, Lymph # (Auto) 1.2, [place] # (Auto) 0.5, Eos # (Auto) 0.2, Baso # (Auto) 0.0 03/24/19 05:24: Sodium 140, Potassium 4.1, Chloride 106, Carbon Dioxide 24, Anion Gap 14.1, BUN 18, Creatinine 1.07, Estimated Creat Clear 79, Estimated GFR 69, Est GFR ( Amer) 83, Glucose 91 D, Calcium 9.0 03/24/19 12:40: Sodium 139, Potassium 4.1, Chloride 104, Carbon Dioxide 24, Anion Gap 15.1 H, BUN 20 H, Creatinine 1.15, Estimated Creat Clear 74, Estimated GFR 63, Est GFR ( Amer) 77, Glucose 118 H D, Calcium 9.1, Total Bilirubin 0.4, AST 77 H, ALT 18, Alkaline Phosphatase 96, Lactate Dehydrogenase 196, Total Protein 6.6, Albumin 2.4 L, Globulin 4.2 H, Albumin/Globulin Ratio 0.6 L I & O for Last 24 hours: Intake & Output 03/21/19 03/22/19 03/23/19 03/24/19 23:59 23:59 23:59 23:59 Intake Total 1240 / 1440 1090 / 1090 Balance 1240 / 1440 1090 / 1090 Weight 184 lb 4.8 oz 184 lb 8 oz - Constitutional no acute distress, average body habitus - *Routine HEENT Exam Head: Present: normocephalic, atraumatic - *Routine Respiratory Exam Absent: accessory muscle use Comments: pleural rub auscultated right lower and middle lobes - *Routine Cardiovascular Exam Present: RRR, Normal S1, Normal S2 - *Routine Abdominal Exam Present: soft, normoactive bowel sounds - *Routine Extremities Exam Absent: cyanosis, edema - *Routine Skin Exam Present: intact, dry. Absent: cyanosis - *Routine Neurological Exam Present: alert, oriented X3 - Routine Psychiatric Exam Present: normal affect Assessment and Plan (1) Pleural effusion, right Current visit: Yes Status: Acute Category: Medical Code(s): J90 - Pleural effusion, not elsewhere classified (2) Emphysema lung Current visit: No Status: Acute Category: Medical Code(s): J43.9 - Emphysema, unspecified (3) Acute on chronic respiratory failure with hypoxemia Current visit: No Status: Chronic Category: Medical Code(s): J96.21 - Acute and chronic respiratory failure with hypoxia (4) Disseminated malignancy of unknown primary Current visit: No Status: Chronic Category: Medical Code(s): C80.0 - Disseminated malignant neoplasm, unspecified; C80.1 - Malignant (primary) neoplasm, unspecified - Assessment and plan all Dx Assessment and Plan for all problems:: Encouraged use of IS, continue IV antibiotics, titrate oxygen to keep SPO2> 88%, and await transfer bed to [facility].
[2019-03-24 17:01] LABS: Mononuclear WBCs,Body Fluid 20 %
[2019-03-24 17:02] LABS: Polynuclear WBC,Body Fluid 80 %
--- NOTE | 2019-03-25 07:16 | Progress Note ---
Internal Medicine - PN: Subj *Date: 03/25/19 *Time: 07:14 Interval history: Patient has no new complaints this morning. He underwent successful right-sided thoracentesis yesterday they removed 2200 mL's of pleural fluid. Since thoracentesis patient does feel an abnormal sensation with in the right lung. He is using incentive spirometry. Shortness of breath improved after thoracentesis. He has been weaned slightly on his supplemental oxygen. Exam Vital signs and Labs for Last 24 Hours: Temp Pulse Resp BP Pulse Ox 97.5 F L 78 16 109/56 L 89 L 03/25/19 03:00 03/25/19 06:00 03/24/19 20:00 03/25/19 06:00 03/25/19 06:00 Laboratory Results - last 24 hr 03/24/19 12:40: Sodium 139, Potassium 4.1, Chloride 104, Carbon Dioxide 24, Anion Gap 15.1 H, BUN 20 H, Creatinine 1.15, Estimated Creat Clear 74, Estimated GFR 63, Est GFR ( Amer) 77, Glucose 118 H D, Calcium 9.1, Total Bilirubin 0.4, AST 77 H, ALT 18, Alkaline Phosphatase 96, Lactate Dehydrogenase 196, Total Protein 6.6, Albumin 2.4 L, Globulin 4.2 H, Albumin/Globulin Ratio 0.6 L 03/24/19 13:00: Fluid Source Thoracentesis fluid, Fluid Volume 2200, Fluid Appearance Bloody, Fluid RBC (Auto) 20, Fld Tot Nucleated Cell 934, Fld Polynuclear WBCs % 80, Fld Mononuclear WBCs % 20 I & O for Last 24 hours: Intake & Output 03/22/19 03/23/19 03/24/19 03/25/19 11:59 11:59 11:59 11:59 Intake Total 1800 / 1800 1080 / 1080 Output Total 450 / 450 Balance 1800 / 1800 630 / 630 Weight 184 lb 8 oz 182 lb 4 oz Narrative: Patient is in no distress. Lung examination reveals a pleuritic rub on the right side. Improved airflow to the right base. Heart has a regular rate and rhythm Assessment and Plan (1) Pleural effusion, right Current visit: Yes Status: Acute Category: Medical Code(s): J90 - Pleural effusion, not elsewhere classified (2) Emphysema lung Current visit: No Status: Acute Category: Medical Code(s): J43.9 - Emphysema, unspecified (3) Acute on chronic respiratory failure with hypoxemia Current visit: No Status: Chronic Category: Medical Code(s): J96.21 - Acute and chronic respiratory failure with hypoxia (4) Disseminated malignancy of unknown primary Current visit: No Status: Chronic Category: Medical Code(s): C80.0 - Disseminated malignant neoplasm, unspecified; C80.1 - Malignant (primary) neoplasm, unspecified - Assessment and plan all Dx Assessment and Plan for all problems:: Await lab studies on his thoracentesis. Awaiting transfer to [facility] for further evaluation of recurring right pleural effusion
--- NOTE | 2019-03-26 08:10 | Progress Note ---
Internal Medicine - PN: Subj *Date: 03/26/19 *Time: 08:07 Interval history: Patient reports feeling better. He at least feels as well as he did this time a week ago. Yesterday I had a discussion with Dr. Jimenez per the patient's request about plan for the patient as it is highly likely this pleural effusion will reaccumulate. The plan we came up with is that if patient is able to be discharged he will return to the hospital on Sunday morning for repeat chest x- ray. If there is suggestion of reaccumulation of pleural fluid patient will undergo thoracentesis in anticipation of Pleurx drain to be inserted as an outpatient next Sunday at the [facility]. Patient is agreeable to this. Patient was able to ambulate yesterday with his supplemental oxygen and even took a shower. Exam Vital signs and Labs for Last 24 Hours: Temp Pulse Resp BP Pulse Ox 98.1 F 80 20 97/42 L 93 L 03/26/19 04:00 03/26/19 05:56 03/26/19 04:00 03/26/19 04:00 03/26/19 05:56 I & O for Last 24 hours: Intake & Output 03/23/19 03/24/19 03/25/19 03/26/19 11:59 11:59 11:59 11:59 Intake Total 1800 / 1800 1560 / 1560 890 / 890 Output Total 900 / 900 975 / 975 Balance 1800 / 1800 660 / 660 -85 / -85 Weight 184 lb 8 oz 182 lb 4 oz 180 lb 4 oz Microbiology Reports for the Last 24 Hours: Microbiology 03/24/19 13:00 Pleural Fluid Body Fluid Culture - Preliminary NO GROWTH AFTER 24 HOURS 03/23/19 14:30 Blood Blood Culture - Preliminary NO GROWTH AFTER 48 HOURS 03/23/19 13:33 Blood Blood Culture - Preliminary NO GROWTH AFTER 48 HOURS Narrative: Patient looks comfortable in bed. Nasal cannula is in place. Lung exam continues to have a pleural rub on the right. Right base remains clear Assessment and Plan (1) Pleural effusion, right Current visit: Yes Status: Acute Category: Medical Code(s): J90 - Pleural effusion, not elsewhere classified (2) Emphysema lung Current visit: No Status: Acute Category: Medical Code(s): J43.9 - Emphysema, unspecified (3) Acute on chronic respiratory failure with hypoxemia Current visit: No Status: Chronic Category: Medical Code(s): J96.21 - Acute and chronic respiratory failure with hypoxia (4) Disseminated malignancy of unknown primary Current visit: No Status: Chronic Category: Medical Code(s): C80.0 - Disseminated malignant neoplasm, unspecified; C80.1 - Malignant (primary) neoplasm, unspecified - Assessment and plan all Dx Assessment and Plan for all problems:: 1. Repeat x-ray today to reassess for any early fluid accumulation 2. Possible discharge this afternoon if his day goes well
[2019-03-26 11:54] VITALS: BP 130/69
--- NOTE | 2019-03-26 14:08 | Discharge Summary ---
General - General Admission date:: 03/23/19 Discharge date: 03/26/19 HPI HPI: 69-year-old male with presumed lung cancer with bony metastases of the thoracic spine and ribs presented to the emergency department with worsening shortness of breath over the preceding 24 hours. Patient tells me as of , March 20 he felt like his breathing was not labored and at baseline. He is oxygen dependent. On Sunday he developed shortness of breath that worsened over the course of the day until he presented to the emergency department. In the emergency department imaging revealed reaccumulation of a right sided pleural effusion both on x-ray and CT scan. Effusion on x-ray appears slightly larger than it did approximately 10 days prior when patient was hospitalized for shortness of breath. At that hospitalization patient underwent a successful thoracentesis with improvement in his dyspnea. There was no significant pneumonia identified after thoracentesis. On CT scan there is a questionable infiltrate versus pulmonary collapse caused by the effusion. Patient was admitted. On-call physician suggested patient be transferred to [facility] and that arrangement has already been made and at this time there is no bed available. Patient denies fevers, chills, significant sputum production. Last Sunday patient reestablish care with [facility] soup mixer Dr. Jay Jimenez. His oncologist is Dr. Jeff Sanchez Hospital Course Hospital Course: Patient was admitted on the evening of March 23 and on the afternoon of March 24 underwent thoracentesis to remove 2200 mL's of fluid pleural fluid that was described as bloody. Fluid analysis was performed as was Gram stain, and cytology. At the time of this dictation the Gram stain has been negative for or ganisms. Other pleural fluid studies such as protein, LDH and cytology are still pending. Post procedurally patient had significant improvement in aeration in the right lung as well as his oxygen requirement there was no sign of infiltrate once effusion had been removed. Patient did have a's small right apical pneumothorax however. This did not change after serial chest x-rays. Once patient had improved with thoracentesis, just as he had week prior, discussion turned to prognosis for the patient as well as any further interventions that could occur. At present the effusion is considered malignant despite negative cytology. I spoke with patient's soup mixer Dr. Jay Jimenez. With Dr. Jimenez's assistance it has been arranged for the patient to undergo placement of a Pleurx drain next Sunday as an outpatient at the [facility]. Decision was made to repeat the patient's x-ray this coming Sunday. If there is significant fluid reaccumulation thoracentesis can b e performed to try to get the patient to next Sunday. Patient was agreeable to this plan. I also discussed plan with Dr. Watson of radiology. On March 26 patient had returned to his baseline. He was discharged to home. Objective Vital signs: Temp Pulse Resp BP Pulse Ox 98.9 F 90 19 130/69 93 L 03/26/19 11:53 03/26/19 13:49 03/26/19 11:53 03/26/19 11:53 03/26/19 11:53 Results Labs on day of discharge: Preliminary micro results at discharge 03/24/19 13:00 Body Fluid Culture - Preliminary Pleural Fluid NO GROWTH AFTER 24 HOURS 03/23/19 14:30 Blood Culture - Preliminary Blood NO GROWTH AFTER 48 HOURS 03/23/19 13:33 Blood Culture - Preliminary Blood NO GROWTH AFTER 48 HOURS DS: Diagnosis - Discharge Diagnosis (1) Pleural effusion, right Status: Acute (2) Emphysema lung Status: Acute (3) Acute on chronic respiratory failure with hypoxemia Status: Chronic (4) 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 Discharge Plan - Patient Discharge Instructions ACTIVITY: Continue current activity DIET: continue same diet Patient Instructions: Pleural Effusion, Chronic Obstructive Pulmonary Disease, DI for Chronic Obstructive Pulmonary Disease, DI for Pneumonia -- Adult - Follow up Plan Disposition: Home, Self-Nursing Home Medications: Home Medications Medication Instructions Recorded Confirmed Type Budesonide/Formoterol Fumarate 2 puff INHALATION BID 12/05/18 03/23/19 History [Symbicort 160-4.5 Mcg Inhaler] Lorlatinib [Lorbrena] 100 mg PO DAILY 12/05/18 03/23/19 History Cholecalciferol (Vitamin D3) 2,000 unit PO DAILY 01/21/19 03/24/19 History [Vitamin D3 1,000 Unit Cap] Pantoprazole Sodium [Protonix 40mg 40 mg PO DAILY 01/21/19 03/23/19 History tablet] Ipratropium/Albuterol Sulfate 3 ml IH Q6H 01/22/19 03/23/19 History [Duoneb 3mL neb] Ferrous Sulfate [Iron] 325 mg PO DAILY 03/23/19 03/23/19 History predniSONE [Deltasone 10mg 10 mg PO DAILY 03/24/19 03/24/19 History tablet] Prescriptions/Medication Reconciliation: Continued Lorlatinib [Lorbrena] 100 mg PO DAILY Budesonide/Formoterol Fumarate [Symbicort 160-4.5 Mcg Inhaler] 2 puff INHALATION BID Cholecalciferol (Vitamin D3) [Vitamin D3 1,000 Unit Cap] 2,000 unit PO DAILY Ipratropium/Albuterol Sulfate [Duoneb 3mL neb] 3 ml IH Q6H Pantoprazole Sodium [Protonix 40mg tablet] 40 mg PO DAILY Ferrous Sulfate [Iron] 325 mg PO DAILY predniSONE [Deltasone 10mg tablet] 10 mg PO DAILY Other Amb Orders: XR chest 2V Time Frame: 2 Days, Facility: [facility], Location: Radiology
== END 2019-03-26 16:10 | disposition home or self-care (01) | DRG 180 ==
LOC: ER 13:27 → 2ND 17:39
PROVIDERS: ADMIT Internal Medicine Adolescent Medicine; ATTEND Family Medicine
CPT/HCPCS: 32555; 36415; 71010; 71020; 71045; 71046; 71275; 80048; 80053; 82042; 82803; 82945; 83605; 83615; 83880; 84155; 84484; 85007; 85025; 85378; 87040; 87070; 87205; 89051; 93005; 94640; 94760; 94761; 96365; 96367; 99284; J0692; Q9967

== ENCOUNTER → 2019-03-28 08:18 | Outpatient (CLI) | payer MEDICARE, BC, SELFPAY ==
--- NOTE | 2019-03-28 08:22 | XR_ITS ---
XR chest 2V HISTORY: Follow-up pleural effusion ITS.REASON: right pleural effusion ORDERING PHYSICIAN: Jose Alejandro Wakefield MD PATIENT AGE: 69 years COMPARISON: 2019 FINDINGS: There is a small right pleural effusion which is not significantly changed compared to 03/26/2019. There does appear to be some increased consolidation in the right lung base. There is a small right apical pneumothorax which is slightly decreased in size with some minimal right apical pleural thickening and bulla in the right upper lobe. Cardiomegaly with prominence of the interstitium once again noted with a small left pleural effusion also noted unchanged. IMPRESSION: 1. No change in the small right pleural effusion with some increased consolidation in the right lung base and persistent small right apical pneumothorax which is slightly decreased in size. 2. No change cardiomegaly with interstitial lung disease and small left effusion
== END ==
PROVIDERS: PCP Family Medicine; Visit Provider Family Medicine
DX: J90 Pleural effusion, not elsewhere classified (principal)
CPT/HCPCS: 71046

== ENCOUNTER 2019-03-30 13:45 | Observation (INO) ==
[2019-03-30 14:41] LABS: ABG Base Excess -1.6 mmol/L (-2.4-2.3); ABG HCO3 22.4 mmhg (22.0-26.0); ABG Oxygen Saturation 89 % (90-100); ABG PCO2 33.2 mmhg (35.0-45.0); ABG PH 7.45 mmol/L (7.35-7.45); ABG PO2 58.1 mmhg (80-100); ABG TCO2 23.4 mmhg (23-27)
[2019-03-30 14:42] LABS: Oxygen 40 %
[2019-03-30 14:43] LABS: Allen's Test Acceptable
--- NOTE | 2019-03-30 14:59 | Emergency Department Note ---
ED Disposition Clinical Impression: RLL pneumonia, Bilateral pleural effusion, End stage COPD Disposition: Still a Patient Condition on Discharge: Fair Referrals: Jose Alejandro Wakefield MD [Primary Care Provider] - - Critical Care Critical Care Time: No Attestation: On 03/30/19, the high probability of a clinically significant, sudden or life threatening deterioration of the following system(s) required my full and direct attention, intervention and personal management. The time I documented below is in addition to time spent performing reported procedures but includes the following listed in this critical care notation. Medical Decision Making - Aaron Inquiry Pt receiving controlled substance: No Aaron was queried for this patient: No Vital Signs: 03/30/19 13:45 03/30/19 14:34 Temperature 98.0 F Temperature Source Oral Pulse Rate [Right Radial] 82 88 Respiratory Rate 24 22 Blood Pressure [Right Arm] 134/73 166/84 H Blood Pressure Mean [Right Arm] 93 111 Blood Pressure Source [Right Arm] Automatic Cuff Automatic Cuff Blood Pressure Position [Right Arm] Sitting Supine 02 Sat by Pulse Oximetry 88 L 90 L Oxygen Delivery Method Nasal Cannula Nasal Cannula Oxygen Flow Rate (LPM) 5 5 - Lab Data Lab Results 03/30/19 14:37: Specimen Source Right radial, O2 % 40, ABG pH 7.45, ABG pCO2 33.2 L, ABG pO2 58.1 L, ABG HCO3 22.4, ABG Total CO2 23.4, ABG O2 Saturation 89 L, ABG Base Excess -1.6, Juanito Test Acceptable Orders (Tests/Meds): ED MEDICATIONS Generic Name Dose Route Start Last Admin Trade Name Freq PRN Reason Stop Dose Admin Cefepime HCl 1 gm/ Sodium 50 mls @ 100 mls/hr 03/30/19 15:15 Chloride IV 04/13/19 15:14 Q12H [facility] Protocol ORDERS Category Date Time Status Lactic Acid Stat Lab 03/30/19 15:06 Ordered Blood Culture Stat Micro 03/30/19 15:06 Ordered - Radiology Data #1 Image(s): Chest Image Reviewed: Yes I reviewed the patient's radiology image Preliminary Findings: Abnormal IMPRESSION: Worsening right lower lobe pneumonia with chronic interstitial changes and small bilateral effusions right side larger left not significantly changed. Medical Decision Narrative: I called [facility] spoke with Dr. Rey who has no available beds. I spoke with the patient to prefer to be admitted at [facility] until his appointment on April [address] Jimenez. As he does not seem to tolerate 5 L nasal cannula on his home oxygen. I discussed with the patient his option and he preferred to be admitted for oxygen therapy and IV antibiotics. Resp/SOB HPI - General Stated Complaint: SOA Time Seen by Provider: 03/30/19 13:50 Mode of Arrival: Wheelchair Limitations: No Limitations Description of Symptoms (Recalled from ER Triage Doc. by RN): Pt was discharged from the ER, pt did not make it to his vehicle before coming back to the ER with complaints of feeling like her couldn't breathe. Pt was on oxygen at 5L per NC, pt wears 5L NC all the time at home - History of Present Illness MD Complaint: shortness of breath Onset (ago): hour(s) (3 hours) Severity: mild Consistency/Duration: intermittent Relieving factors: oxygen Exacerbating factors: other (on 5 liters) Known history of: COPD, other (lung cancer ) Treatment prior to arrival: oxygen - Related Data Home oxygen amount: other (5 liter) Home Medications Medication Instructions Recorded Confirmed Budesonide/Formoterol Fumarate 2 puff INHALATION BID 12/05/18 03/30/19 [Symbicort 160-4.5 Mcg Inhaler] Lorlatinib [Lorbrena] 100 mg PO DAILY 12/05/18 03/30/19 Cholecalciferol (Vitamin D3) 2,000 unit PO DAILY 01/21/19 03/30/19 [Vitamin D3 1,000 Unit Cap] Pantoprazole Sodium [Protonix 40mg 40 mg PO DAILY 01/21/19 03/30/19 tablet] Ipratropium/Albuterol Sulfate 3 ml IH Q6H 01/22/19 03/30/19 [Duoneb 3mL neb] Ferrous Sulfate [Iron] 325 mg PO DAILY 03/23/19 03/30/19 predniSONE [Deltasone 10mg tablet] 10 mg PO DAILY 03/24/19 03/30/19 Allergies Allergy/AdvReac Type Severity Reaction Status Date / Time No Known Allergies Allergy Verified 03/23/19 18:45 [facility] History - Hepatitis A Screen Drug use history?: No High risk sexual behaviors?: No History of sexually transmitted infection?: No Currently employed?: No Childcare worker?: No Do you have indoor plumbing?: Yes Do you have electricity?: Yes Attestation statement:: This patient has been screened for Hepatitis A risk factors. 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 No: Pacemaker Amputation: No Fractures: No - Social History Smoking Status: Former smoker Tobacco Type: cigarettes #Yrs smoked (if former smoker): 35 Alcohol Intake: never Occupational Status: retired Housing: house Household Members: spouse, children Family Hx:: Cancer, Diabetes ROS Obtained: Yes All systems reviewed & no additional complaints Physical Exam - General General appearance: alert, in no apparent distress - Head Head exam: atraumatic, normocephalic, normal inspection - Eye Eye exam: Present: normal appearance, PERRL, EOMI - ENT ENT exam: Present: normal exam, normal oropharynx, mucous membranes moist, TM's normal bilaterally, normal external ear exam - Neck Neck exam: Present: normal inspection, full ROM, trachea midline. Absent: meningismus, lymphadenopathy - Chest Chest inspection: Present: normal inspection, symmetric chest wall rise, other (decreased AE over the RLL base ). Absent: tenderness - Respiratory Respiratory exam: Present: normal lung sounds bilaterally. Absent: respiratory distress - Cardiovascular Cardiovascular exam: Present: regular rate, normal rhythm. Absent: JVD - Abdominal Exam Abdominal exam: Present: soft, normal bowel sounds. Absent: distention, tenderness, guarding, rebound, rigidity - Extremities Exam Extremities exam: Present: normal inspection, full ROM, normal capillary refill. Absent: calf tenderness - Back Exam Back exam: Present: normal inspection. Absent: tenderness, CVA tenderness (R), CVA tenderness (L) - Neurological Exam Neurological exam: Present: alert, oriented X3, CN II-XII intact - Psychiatric Psychiatric exam: Present: normal affect, normal mood - Skin Skin exam: Present: warm, dry, intact, normal color - Lymphatic Lymphatic Findings: no adenopathy
[2019-03-31 06:47] LABS: Basophils % 0.4 % (0.1-2.0); Eosinophils # 0.3 K/mm3 (0.0-0.4); Eosinophils % 4.7 % (0.1-12.0); Hemoglobin 10.4 g/dL (14.1-18.0); Lymphocytes # 1.1 K/mm3 (0.7-4.5); Lymphocytes % 16.4 % (10-50); Mean Corpuscular HGB Conc 31.6 g/dL (31.8-35.4); Mean Corpuscular Volume 93.9 fl (80-94); Mean Platelet Volume 8.1 fl (7.4-10.4); Monocytes # 0.4 K/mm3 (0.1-1.0); Monocytes % 5.9 % (1.7-9.3); Neutrophils # 4.7 K/mm3 (1.8-7.8); Neutrophils % 72.5 % (37.0-80.0); Platelet Count 194 K/mm3 (142-424); Red Blood Count 3.52 M/mm3 (4.60-6.20); Red Cell Distribution Width 16.1 % (11.5-17.5); White Blood Count 6.4 K/mm3 (4.8-10.8)
[2019-03-31 06:51] LABS: Calcium 8.8 mg/dL (8.5-10.1)
--- NOTE | 2019-03-31 07:21 | History & Physical Report ---
*Admission Date: 03/30/19 *Chief complaint: Shortness of breath *History of present illness: 69-year-old male with recent hospitalizations for shortness of breath due to recurring pleural effusion presented to the emergency department again yesterday afternoon with complaints of sudden onset of dyspnea. Patient reports he was at home sitting outside on his porch in a breeze when he went to stand up in the act of standing up caused him to be unable to "catch his breath". He stood for an undefined period of time until he felt like he could walk inside. He initially planned on going to bed but was so short of breath he could not make it to the bedroom. He sat in a chair and decided to come to the emergency department. Patient actually came to the emergency department and was treated with aerosols and steroid. Repeat chest x-ray showed no significant reaccumulation of pleural fluid and questionable infiltrate in the right lower lobe. Patient was feeling better and was discharged from the emergency department. Patient had not made it to his car in the parking lot when he turned around and came back to the emergency department due to his level of dyspnea and decision was made to admit the patient. This morning the patient states he is feeling "slightly better". He is requiring oxygen via nasal cannula at 6 L/min which is keeping his O2 sats in the mid to high 80s. He has not had any fevers or chills. He has minimal cough and what cough he does have is nonproductive. [facility] History I have reviewed the patient's past medical history: Yes Medical History: Reports:: Cancer (Unknown primary with metastatic disease to th e brain, thoracic spine, ribs), Chronic Obstructive Pulmonary Disease (COPD), Home Oxygen (4 L/M at rest and 8 L/M with activity) Denies:: Diabetes Mellitus Type 1, Diabetes Mellitus Type 2, Internal Pacemaker, MRSA *Have you ever received a pneumonia vaccine?: Yes *Have you received a flu vaccine this season?: Yes Other Medical History: Reports: Chemotherapy Laterality Cases: Bilateral: Myringotomy (Ear Tubes) Other Surgeries: Yes: Other (tumor removed from brain). No: Pacemaker Amputation: No Fractures: No - *Social History Educational Level: Completed College Smoking Status: Former smoker Tobacco Type: cigarettes #Yrs smoked (if former smoker): 35 Alcohol Intake: never *Occupational Status:: retired Housing: house Household Members: spouse, children *Travel in the last 8 weeks: None - Psychiatric History Expresses thoughts of harming self/others: None Suicide Plan Description: No Plan Family Hx:: Cancer, Diabetes Review of Systems - Review of Systems Review of systems:: pertinent systems reviewed and negative unless documented below - Constitutional Reports fatigue, Reports lack of energy, Denies body ache(s), Denies chills, Denies daytime sleepiness, Denies excessive sweating, Denies fever(s) - *Cardiovascular Denies chest pain - *Respiratory Reports shortness of breath - *Gastrointestinal Denies abdominal pain - *Genitourinary Denies difficulty urinating Meds Home Medications Medication Instructions Recorded Confirmed Type Budesonide/Formoterol Fumarate 2 puff INHALATION BID 12/05/18 03/30/19 History [Symbicort 160-4.5 Mcg Inhaler] Lorlatinib [Lorbrena] 100 mg PO DAILY 12/05/18 03/30/19 History Cholecalciferol (Vitamin D3) 2,000 unit PO DAILY 01/21/19 03/30/19 History [Vitamin D3 1,000 Unit Cap] Pantoprazole Sodium [Protonix 40mg 40 mg PO DAILY 01/21/19 03/30/19 History tablet] Ipratropium/Albuterol Sulfate 3 ml IH Q6H 01/22/19 03/30/19 History [Duoneb 3mL neb] Ferrous Sulfate [Iron] 325 mg PO DAILY 03/23/19 03/30/19 History predniSONE [Deltasone 10mg tablet] 10 mg PO DAILY 03/24/19 03/30/19 History Allergies Allergy/AdvReac Type Severity Reaction Status Date / Time No Known Allergies Allergy Verified 03/23/19 18:45 Exam Vital signs and Labs for Last 24 Hours: Temp Pulse Resp BP Pulse Ox 98.3 F 80 18 115/61 90 L 03/31/19 04:00 03/31/19 04:00 03/31/19 04:00 03/31/19 04:00 03/31/19 04:00 Laboratory Results - last 24 hr 03/30/19 14:37: Specimen Source Right radial, O2 % 40, ABG pH 7.45, ABG pCO2 33.2 L, ABG pO2 58.1 L, ABG HCO3 22.4, ABG Total CO2 23.4, ABG O2 Saturation 89 L, ABG Base Excess -1.6, Juanito Test Acceptable 03/30/19 15:35: Lactate 0.8 03/31/19 06:21: WBC 6.4 D, RBC 3.52 L, Hgb 10.4 L, Hct 33.0 L, MCV 93.9, MCH 29.7, MCHC 31.6 L, RDW 16.1, Plt Count 194, MPV 8.1, Neut % (Auto) 72.5, Lymph % (Auto) 16.4, Ferry % (Auto) 5.9, Eos % (Auto) 4.7, Baso % (Auto) 0.4, Neut # (Auto) 4.7, Lymph # (Auto) 1.1, Ferry # (Auto) 0.4, Eos # (Auto) 0.3, Baso # (Auto) 0.0 03/31/19 06:21: Sodium 140, Potassium 4.0, Chloride 105, Carbon Dioxide 25, Anion Gap 14.0, BUN 20 H D, Creatinine 1.15, Estimated Creat Clear 73, Estimated GFR 63, Est GFR ( Amer) 77, Glucose 92, Calcium 8.8 I & O for Last 24 hours: Intake & Output 03/28/19 03/29/19 03/30/19 03/31/19 11:59 11:59 11:59 11:59 Intake Total 560 / 560 Output Total 975 / 975 Balance -415 / -415 Weight 181 lb 6 oz Narrative: Patient is in no respiratory distress. He does have a mild increase in his respiratory rate. No accessory muscle use. ENT exam reveals moist oropharynx. Nasal cannula is in place. Neck is without carotid bruits or lymphadenopathy. Lungs have some dry crackles in the bases with diminished breath sounds in the right base compared to the left. Heart has a regular rate and rhythm. Abdomen is soft. Lower extremities are without edema. Assessment and Plan (1) RLL pneumonia Current visit: Yes Status: Suspected Category: Medical Code(s): J18.1 - Lobar pneumonia, unspecified organism (2) Emphysema lung Current visit: No Status: Chronic Category: Medical Code(s): J43.9 - Emphysema, unspecified (3) Hypoxia Current visit: No Status: Chronic Category: Medical Code(s): R09.02 - Hypoxemia (4) Pleural effusion, right Current visit: No Status: Chronic Category: Medical Code(s): J90 - Pleural effusion, not elsewhere classified (5) Disseminated malignancy of unknown primary Current visit: No Status: Chronic Category: Medical Code(s): C80.0 - Disseminated malignant neoplasm, unspecified; C80.1 - Malignant (primary) neoplasm, unspecified - Assessment and plan all Dx Assessment and Plan for all problems:: 1. Continue IV antibiotics for suspected right lower lobe pneumonia. 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 Jimenez, today and asked him to review patient's recent films. Patient does not really have symptoms of infection. There does not seem to be any significant reaccumulation of pleural fluid at this time. Patient had thoracentesis approximately 1 week ago that removed 2200 mL's of fluid and Gram stain and culture of that fluid did not grow any organism. His pleural effusion is felt to be due to malignancy. 2. Continue home medications
--- NOTE | 2019-03-31 07:26 | Pharmacy Consult Notes ---
[facility] Pharmacy VTE Monitoring - Patient Demographics Admission date: 03/30/19 Report Date: 03/31/19 Time: 07:25 Allergies/Adverse Reactions: Patient Allergies No Known Allergies Allergy (Verified 03/23/19 18:45) Height: 1.85 m Weight: 82.27 kg Patient Problems: Current Active Problems (Updated 03/30/19 @ 15:04 by Michelle Haley MD) End stage COPD (Acute) Bilateral pleural effusion (Acute) RLL pneumonia (Acute) - VTE Risk Labs: VTE Related Lab Results Hgb 10.4 g/dL (14.1-18.0) L 03/31/19 06:21 Hct 33.0 % (42.0-52.0) L 03/31/19 06:21 Plt Count 194 K/mm3 (142-424) 03/31/19 06:21 BUN 20 mg/dL (7-18) H D 03/31/19 06:21 Creatinine 1.15 mg/dL (0.70-1.30) 03/31/19 06:21 Estimated Creat Clear 73 mL/min (50-200) 03/31/19 06:21 Was VTE Risk Assessment Performed: Yes VTE Score: 6 VTE Risk Level: Moderate Risk - Prophylaxis VTE Prophylaxis Ordered?: Yes Types of VTE Prophylaxis: TEDS Knee High Location of Applied Device: Bilateral Lower Extremeties - VTE Diagnosis Confirmed Treatment or plan recommended: Continue Current Treatment
--- NOTE | 2019-04-01 07:04 | Progress Note ---
Internal Medicine - PN: Subj *Date: 04/01/19 *Time: 07:02 Interval history: Patient tells me he felt like he had a good day yesterday and noticed a decrease in the amount of time it took him to recover from shortness of breath that would develop with ambulation. This morning however his symptoms have changed. He feels more breathless just sitting in bed. Moving to the side of the bed takes him quite a bit of time to recover. Chest CT was performed overnight at the request of Dr. Jimenez to rule out pulmonary embolism. There is no pulmonary embolism. Chest x-ray from yesterday showed a slight increase in the size of the right pleural effusion. However when compared to previous x-rays that have been performed prior to his thoracentesis there does not appear to be as much fluid Exam Vital signs and Labs for Last 24 Hours: Temp Pulse Resp BP Pulse Ox 98.2 F 90 20 121/63 90 L 04/01/19 04:00 04/01/19 05:56 04/01/19 04:00 04/01/19 04:00 04/01/19 05:56 I & O for Last 24 hours: Intake & Output 03/29/19 03/30/19 03/31/19 04/01/19 11:59 11:59 11:59 11:59 Intake Total 920 / 920 1030 / 1030 Output Total 975 / 975 1400 / 1400 Balance -55 / -55 -370 / -370 Weight 181 lb 6 oz 180 lb Microbiology Reports for the Last 24 Hours: Microbiology 03/31/19 10:20 Sputum - Expectorated Sputum Gram Stain - Final Narrative: Patient looks short of breath and uncomfortable as well as anxious. Lung exam reveals some bibasilar crackles with diminished breath sounds on the right consistent with his pleural effusion. Heart has a regular rate and rhythm Assessment and Plan (1) RLL pneumonia Current visit: Yes Status: Suspected Category: Medical Code(s): J18.1 - Lobar pneumonia, unspecified organism (2) Emphysema lung Current visit: No Status: Chronic Category: Medical Code(s): J43.9 - Emphysema, unspecified (3) Hypoxia Current visit: No Status: Chronic Category: Medical Code(s): R09.02 - Hypoxemia (4) Pleural effusion, right Current visit: No Status: Chronic Category: Medical Code(s): J90 - Pleural effusion, not elsewhere classified (5) Disseminated malignancy of unknown primary Current visit: No Status: Chronic Category: Medical Code(s): C80.0 - Disseminated malignant neoplasm, unspecified; C80.1 - Malignant (primary) errol plasm, unspecified - Assessment and plan all Dx Assessment and Plan for all problems:: Patient is scheduled for outpatient procedure to place a Pleurx drain tomorrow at the [facility]. However I am not sure the patient can wait 24 hours for removal of fluid from the right pleural space. We will proceed with thoracentesis this morning.
--- NOTE | 2019-04-02 06:48 | Progress Note ---
Internal Medicine - PN: Subj *Date: 04/02/19 *Time: 06:46 Interval history: Patient underwent successful thoracentesis yesterday with removal of 1600 mL's. Patient tells me he noticed significant improvement in his dyspnea after this thoracentesis. He was weaned to 4 L almost immediately after thoracentesis and is tolerated well. Conversational dyspnea and exertional dyspnea have improved to certain degrees. Decision was made to keep the patient in the hospital overnight to avoid possibility of readmission prior to his Pleurx drain procedure today Exam Vital signs and Labs for Last 24 Hours: Temp Pulse Resp BP Pulse Ox 98.1 F 84 18 115/56 L 82 L 04/02/19 03:38 04/02/19 05:49 04/02/19 03:38 04/02/19 03:38 04/02/19 05:49 I & O for Last 24 hours: Intake & Output 03/30/19 03/31/19 04/01/19 04/02/19 11:59 11:59 11:59 11:59 Intake Total 920 / 920 1180 / 1180 890 / 890 Output Total 975 / 975 1400 / 1400 1550 / 1550 Balance -55 / -55 -220 / -220 -660 / -660 Weight 181 lb 6 oz 180 lb 180 lb 3 oz Microbiology Reports for the Last 24 Hours: Microbiology 03/30/19 15:35 Blood Blood Culture - Preliminary NO GROWTH AFTER 48 HOURS 03/30/19 15:35 Blood Blood Culture - Preliminary NO GROWTH AFTER 48 HOURS 03/31/19 10:20 Sputum - Expectorated Sputum Gram Stain - Final 03/31/19 10:20 Sputum - Expectorated Sputum Sputum Culture - Preliminary Narrative: He appears comfortable and was actually sleeping when I entered the room. Heart has a regular rate and rhythm. Lung exam reveals a pleural rub heard anteriorly. Decreased breath sounds at the base of the right lung with improved aeration of the right midlung. No rales. Left lung has decreased breath sounds at the base with faint rales Assessment and Plan (1) Pleural effusion, right Current visit: No Status: Chronic Category: Medical Code(s): J90 - Pleural effusion, not elsewhere classified (2) RLL pneumonia Current visit: Yes Status: Suspected Category: Medical Code(s): J18.1 - Lobar pneumonia, unspecified organism (3) Emphysema lung Current visit: No Status: Chronic Category: Medical Code(s): J43.9 - Emphysema, unspecified (4) Hypoxia Current visit: No Status: Chronic Category: Medical Code(s): R09.02 - Hypoxemia (5) Disseminated malignancy of unknown primary Current visit: No Status: Chronic Category: Medical Code(s): C80.0 - Disseminated malignant neoplasm, unspecified; C80.1 - Malignant (primary) neoplasm, unspecified - Assessment and plan all Dx Assessment and Plan for all problems:: Patient will be discharged to home today and has appointment scheduled at the [facility] for outpatient procedure of a Pleurx drain.
--- NOTE | 2019-04-02 06:52 | Discharge Summary ---
General - General Admission date:: 03/30/19 Discharge date: 04/02/19 HPI HPI: 69-year-old male with recent hospitalizations for shortness of breath due to recurring pleural effusion presented to the emergency department again yesterday afternoon with complaints of sudden onset of dyspnea. Patient reports he was at home sitting outside on his porch in a breeze when he went to stand up in the act of standing up caused him to be unable to "catch his breath". He stood for an undefined period of time until he felt like he could walk inside. He initially planned on going to bed but was so short of breath he could not make it to the bedroom. He sat in a chair and decided to come to the emergency department. Patient actually came to the emergency department and was treated with aerosols and steroid. Repeat chest x-ray showed no significant re accumulation of pleural fluid and questionable infiltrate in the right lower lobe. Patient was feeling better and was discharged from the emergency department. Patient had not made it to his car in the parking lot when he turned around and came back to the emergency department due to his level of dyspnea and decision was made to admit the patient. This morning the patient states he is feeling "slightly better". He is requiring oxygen via nasal cannula at 6 L/min which is keeping his O2 sats in the mid to high 80s. He has not had any fevers or chills. He has minimal cough and what cough he does have is nonproductive. Hospital Course Hospital Course: Patient was admitted and placed on broad-spectrum antibiotics to cover the possibility of pneumonia. Right pleural effusion was monitored with serial chest x-rays. Patient actually felt better the day after admission despite the fact that his effusion had grown on chest x-ray. I spoke with Dr. Jimenez of pulmonology service regarding the patient who he is familiar with. Patient is scheduled for a Pleurx drain on Sunday, April 02. Plan was to monitor the effusion, perform thoracentesis if necessary, with anticipation of discharge prior to the procedure. Observation was continued and by April 01 patient was more short of breath both at rest and with activity. Decision was made to proceed with thoracentesis. 1600 mL of fluid was removed from the right pleural space by ultrasound-guided thoracentesis. After thoracentesis patient noticed significant improvement in conversational and exertional dyspnea. Oxygen was able to be weaned from 6 L/min down to 4 L/min. Patient was observed overnight to avoid rehospitalization prior to his procedure. On the morning of April 02 he was discharged home and will follow-up at this afternoon. Blood cultures were negative during hospitalization. Sputum culture at the time of discharge showed gram-negative rods gram-positive cocci with no identification of dominant organism. Pleural fluid from his thoracentesis was not sent for analysis as this was his third source thoracentesis in the last 19 days. Prior thoracentesis were negative for bacterial infection and and cytology examination did not reveal any malignant cells. Objective Vital signs: Temp Pulse Resp BP Pulse Ox 98.1 F 84 18 115/56 L 82 L 04/02/19 03:38 04/02/19 05:49 04/02/19 03:38 04/02/19 03:38 04/02/19 05:49 Results Labs on day of discharge: Preliminary micro results at discharge 03/30/19 15:35 Blood Culture - Preliminary Blood NO GROWTH AFTER 48 HOURS 03/30/19 15:35 Blood Culture - Preliminary Blood NO GROWTH AFTER 48 HOURS 03/31/19 10:20 Sputum Culture - Preliminary Sputum - Expectorated Sputum DS: Diagnosis - Discharge Diagnosis (1) Pleural effusion, right Status: Chronic (2) RLL pneumonia Status: Suspected (3) Emphysema lung Status: Chronic (4) Hypoxia Status: Chronic (5) 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 Discharge Plan - Patient Discharge Instructions ACTIVITY: Continue current activity DIET: continue same diet Patient Instructions: Pleural Effusion, DI for Chronic Obstructive Pulmonary Disease, DI for Pneumonia -- Adult - Follow up Plan Disposition: Home, Self-Jail Medications: Home Medications Medication Instructions Recorded Confirmed Type Budesonide/Formoterol Fumarate 2 puff INHALATION BID 12/05/18 03/30/19 History [Symbicort 160-4.5 Mcg Inhaler] Lorlatinib [Lorbrena] 100 mg PO DAILY 12/05/18 03/30/19 History Cholecalciferol (Vitamin D3) 2,000 unit PO DAILY 01/21/19 03/30/19 History [Vitamin D3 1,000 Unit Cap] Pantoprazole Sodium [Protonix 40mg 40 mg PO DAILY 01/21/19 03/30/19 History tablet] Ipratropium/Albuterol Sulfate 3 ml IH Q6H 01/22/19 03/30/19 History [Duoneb 3mL neb] Ferrous Sulfate [Iron] 325 mg PO DAILY 03/23/19 03/30/19 History predniSONE [Deltasone 10mg tablet] 10 mg PO DAILY 03/24/19 03/30/19 History levoFLOXacin [Levaquin 750mg 750 mg PO DAILY #5 tab 04/02/19 Rx tablet] Prescriptions/Medication Reconciliation: New levoFLOXacin [Levaquin 750mg tablet] 750 mg PO DAILY #5 tab Continued Lorlatinib [Lorbrena] 100 mg PO DAILY Budesonide/Formoterol Fumarate [Symbicort 160-4.5 Mcg Inhaler] 2 puff INHALATION BID Cholecalciferol (Vitamin D3) [Vitamin D3 1,000 Unit Cap] 2,000 unit PO DAILY Ipratropium/Albuterol Sulfate [Duoneb 3mL neb] 3 ml IH Q6H Pantoprazole Sodium [Protonix 40mg tablet] 40 mg PO DAILY Ferrous Sulfate [Iron] 325 mg PO DAILY predniSONE [Deltasone 10mg tablet] 10 mg PO DAILY
== END 2019-04-02 09:35 | disposition home or self-care (01) ==
LOC: 2ND 13:45 → ER 13:45 → 2ND 16:23
PROVIDERS: ADMIT Emergency Medicine; ATTEND Family Medicine
CPT/HCPCS: 32555; 36415; 71010; 71020; 71045; 71046; 71275; 80048; 82803; 83605; 83880; 84484; 85025; 87040; 87070; 87205; 93005; 94640; 94760; 94761; 96365; 99283; 99284; G0378; J0692; J1956; Q9967

== ENCOUNTER 2019-04-18 10:22 | Inpatient (IN) ==
--- NOTE | 2019-04-18 10:45 | Emergency Department Note ---
ED Disposition Clinical Impression: COPD with acute exacerbation, Interstitial pulmonary fibrosis, Bilateral pleural effusion, Elevated lactic acid level, Right lower lobe consolidation Dyspnea Qualifiers: Dyspnea type: unspecified Qualified Code(s): R06.00 - Dyspnea, unspecified Disposition: Admitted as Observation Condition on Discharge: Fair (Stable) Time of Disposition: 15:26 - Critical Care Critical Care Time: No Attestation: On , the high probability of a clinically significant, sudden or life threatening deterioration of the following system(s) required my full and direct attention, intervention and personal management. The time I documented below is in addition to time spent performing reported procedures but includes the following listed in this critical care notation. Medical Decision Making - Medical Records Medical records reviewed: Yes: I reviewed the patient's medical records. - Aaron Inquiry Pt receiving controlled substance: No Aaron was queried for this patient: No Vital Signs: 04/18/19 10:23 04/18/19 10:35 04/18/19 11:00 Temperature 98.2 F Temperature Source Oral Pulse Rate [Right Radial] 103 H 93 H 96 H Respiratory Rate 34 H Blood Pressure [Right Arm] 163/85 H 130/78 137/71 Blood Pressure Mean [Right Arm] 111 95 93 Blood Pressure Source [Right Arm] Automatic Cuff Blood Pressure Position [Right Arm] Sitting 02 Sat by Pulse Oximetry 85 L 92 L 90 L Oxygen Delivery Method Simple Mask Oxygen Flow Rate (LPM) 5 04/18/19 11:30 04/18/19 12:00 04/18/19 14:01 Temperature Temperature Source Pulse Rate [Right Radial] 95 H 97 H 90 Respiratory Rate 26 H 24 Blood Pressure [Right Arm] 139/77 106/88 L 121/71 Blood Pressure Mean [Right Arm] 97 94 87 Blood Pressure Source [Right Arm] Automatic Cuff Automatic Cuff Blood Pressure Position [Right Arm] Supine 02 Sat by Pulse Oximetry 90 L 94 L 95 Oxygen Delivery Method Simple Mask Simple Mask Oxygen Flow Rate (LPM) 10 10 04/18/19 14:30 Temperature Temperature Source Pulse Rate [Right Radial] 89 Respiratory Rate 24 Blood Pressure [Right Arm] 119/66 Blood Pressure Mean [Right Arm] 83 Blood Pressure Source [Right Arm] Automatic Cuff Blood Pressure Position [Right Arm] Sitting 02 Sat by Pulse Oximetry 95 Oxygen Delivery Method Simple Mask Oxygen Flow Rate (LPM) 10 - Lab Data Lab results reviewed: Yes: I reviewed the patient's lab results. Lab Results 04/18/19 10:45: WBC 10.2, RBC 3.97 L, Hgb 11.2 L, Hct 35.1 L, MCV 88.5, MCH 28. 2, MCHC 31.8, RDW 16.3, Plt Count 209, MPV 7.6, Neut % (Auto) 78.1, Lymph % (Auto) 13.2, [place] % (Auto) 4.2, Eos % (Auto) 3.7, Baso % (Auto) 0.8, Neut # (Auto) 8.0 H, Lymph # (Auto) 1.4, [place] # (Auto) 0.4, Eos # (Auto) 0.4, Baso # (Auto) 0.1 04/18/19 10:45: PT 10.4, INR 1.00, APTT 31.2 04/18/19 10:45: Sodium 136, Potassium 4.0, Chloride 101, Carbon Dioxide 28, Anion Gap 11.0, BUN 19 H, Creatinine 1.15, Estimated Creat Clear 72, Estimated GFR 63, Est GFR ( Amer) 77, Glucose 130 H, Calcium 9.7, Troponin I < 0.02 04/18/19 10:45: B-Natriuretic Peptide 59 04/18/19 10:45: Lactate 2.3 H Result diagrams: 04/18/19 10:45 04/18/19 10:45 Orders (Tests/Meds): ED MEDICATIONS Generic Name Dose Route Start Last Admin Trade Name Freq PRN Reason Stop Dose Admin Ondansetron HCl 4 mg 04/18/19 15:26 Zofran 4mg/2ml Vial IV 05/18/19 15:25 Q8HP PRN Nausea Discontinued Medications Generic Name Dose Route Start Last Admin Trade Name Freq PRN Reason Stop Dose Admin Aspirin 324 mg 04/18/19 10:34 04/18/19 10:46 Aspirin 81mg Chewable Tablet PO 04/18/19 10:35 324 mg ONCE ONE Administration Ioversol 70 ml 04/18/19 13:19 04/18/19 13:21 Rad-Optiray 350 100ml Vial IV 04/18/19 13:20 70 ml ONCE ONE Administration Protocol Sodium Chloride 50 ml 04/18/19 13:19 04/18/19 13:21 Rad-Ns 50ml Vial IV 04/18/19 13:20 50 ml ONCE ONE Administration Sodium Chloride 10 ml 04/18/19 13:19 04/18/19 13:21 Rad-Saline Flush 10ml Syringe IV 04/18/19 13:20 10 ml ONCE ONE Administration ORDERS Category Date Time Status Lactic Acid Follow Up (RFLX 1) Stat Lab 04/18/19 13:45 Received Troponin I Q3H Lab 04/18/19 13:45 Received Troponin I Q3H Lab 04/18/19 16:45 Ordered Blood Culture Stat Micro 04/18/19 10:45 Received - Radiology Data #1 Image(s): Chest Image Reviewed: Yes I have reviewed radiologist's interpretation [address] [facility] [address] [place] [address] XRay Report Signed Patient: Nolan Devine MR#: [id number] : 1950 Acct:[id number] Age/Sex: 69 / M ADM Date: 04/18/19 Loc: ER Attending Dr: Ordering Physician: Grey Griffin III, DO Date of Service: 04/18/19 Procedure(s): XR chest portable Accession Number(s): [id number] cc: Lito Brown MD; Jose Alejandro Wakefield MD~ XR chest portable HISTORY: ITS.REASON: SOB. Chronic RLL effusion. Chest pain. ORDERING PHYSICIAN: Grey Griffin III, DO PATIENT AGE: 69 years COMPARISON: 04/07/2019. FINDINGS: Right-sided chest tube is stable. Emphysematous changes in the right apex are stable. There is persistent interstitial prominence however pulmonary vessels may be slightly more prominent and the lungs are hypoaerated. There is persistent mild blunting of the lateral costophrenic angles bilaterally greater on the right although fairly stable. Cardiac silhouette is at the upper limits of normal and stable. Hilar areas are unremarkable. Impression: COPD and interstitial fibrosis. There could be some superimposed cardiogenic related vascular congestion. Persistent small bilateral pleural effusions. Dictated By: Lito Brown MD 04/18/19 1115 Signed By: <Electronically signed by Lito Brown MD in [place]> 04/18/19 1118 - CT Data CT Scan: Chest Time Received: 14:[address] Reviewed: Yes: I have viewed the radiologist's interpretation Findings Narrative: [place] [address] [place] [address] [address] Scan Report Signed Patient: Nolan Devine MR#: [id number] : 1950 Acct:[id number] Age/Sex: 69 / M ADM Date: 04/18/19 Loc: ER Attending Dr: Ordering Physician: Grey Griffin III, DO Date of Service: 04/18/19 Procedure(s): CT angio chest Accession Number(s): [id number] cc: Lito Brown MD; Jose Alejandro Wakefield MD~ CT angio chest HISTORY: ITS.REASON: Dyspnea ORDERING PHYSICIAN: Grey Griffin III, DO PATIENT AGE: 69 years COMPARISON: 03/31/2019. TECHNIQUE: Axial images obtained following the administration of 75 mL of Optiray 350 . Sagittal, and coronal reformatted images are also generated and reviewed. All CT scans at the facility use one or more dose reduction, viz: automated exposure control, ma/kV adjustment per patient size (including targeted exams where dose is matched to indication, i.e. head), or iterative reconstruction technique. FINDINGS: Pulmonary arteries opacify normally without evidence of filling defects. There is a posterior right-sided pleural drainage catheter with the tip at the level of the posterior right fifth rib. There is no pneumothorax. There is only mild residual inferior right-sided pleural effusion. There is still a moderate left-sided pleural effusion. This has mildly increased size since prior study. Airway structures are patent. Again seen are the confluent opacities in both lower lobes greater on the right side with some proximal air bronchograms indicating a component of consolidation as well as atelectasis. There may be a few more indistinct interstitial densities in the posterior aspect of the right middle lobe. Again seen are the severe emphysematous changes with honeycomb parenchymal pattern with associated groundglass densities as well as bronchiectasis. There is a stable 10 mm ill-defined density left lower lobe on image #80 which is likely area of scarring. This is stable. Heart size is normal without pericardial effusion. There are some stable benign-appearing noncalcified mediastinal lymph nodes. Mediastinal structures are otherwise unremarkable. Visualized upper abdominal structures are unremarkable. Again seen are the diffuse osteoblastic metastatic bone lesions. There is no thoracic vertebra compression deformity. Impression: No evidence of pulmonary embolus. Right-sided chest tube with evacuation of most of the right-sided pleural effusion without a small amount still present. Increase in size of the moderate left-sided pleural effusion. Bilateral lower lobe compressive atelectasis with probable component of consolidation in the right lower lobe which is stable. Severe emphysematous lung changes with honeycomb pattern suggesting end-stage lung disease. There could be some new areas of interstitial process in the posterior right middle lobe which is nonspecific and could be from the dependent atelectasis or perhaps another area of interstitial pneumonitis. No change in the osteoblastic metastatic disease. Dictated By: Lito Brown MD 04/18/19 4646 Signed By: <Electronically signed by Lito Brown MD in [place]> 04/18/19 4929 - ECG Data Tracing #1 I reviewed this ECG and interpreted as documented below: (EKG at 10:49 shows sinus tachycardia at 103 BPM with LAE.) Medical Decision Narrative: 12:18 Pt evaluated. EKG, PCXR and cardiac labs ordered. EKG and PCXR report reviewed. All labs reviewed. Initial troponin normal. Lactic acid mildly elevated. Pt reassessed and VSS. Pt appears improved and is resting comfortably. I will discuss case with PCP Dr. Wakefield regarding admit to observation. Pt aware of results of work up, diagnosis and care plan. All questions answered. 12:[address] PE chest ordered and pending. I will contact him again once report is reviewed. Pt aware. 14:05 CTA chest report reviewed. Dr. Wakefield paged to discuss. 14:[address] Wakefield and he would like me to discuss case with pt's telephone supervisor Dr. Jimenez at . Pt and son aware. 14:24 Case discussed with telephone supervisor Dr. Jimenez. He recommended having radiology here at [facility] tap left pleural effusion and then have pt follow up with him on Sunday at 10:00 a.m. General Adult HPI - General Chief complaint: Shortness of Breath/Dyspnea Stated complaint: soa Time Seen by Provider: 04/18/19 10:25 Mode of Arrival: EMS Source of Information: Patient Limitations: Physical Limitations Description of Symptoms (Recalled from ER Triage Doc. by RN): Pt with multiple Er visits for breathing difficulties and is a cancer patient (lung). pt presents with on going SOA that has gotten worse this morning. pt with chest tube on right side, states it was drained this morning. - History of Present Illness HPI narrative: Pt is here in the ER from home via EMS for evaluation c/o increase in SOB over the past few days with increase in chronic cough that has been occasionally productive. Pt also c/o chest tightness due to his dyspnea. No precordial chest pain. No migration of chest pain. Pt has a history of chronic RLL effusion and has a chest tube in place that home health nursing drains 3 times a week. Pt had about 200 cc of fluid drained this morning. Pt is on home O2 @ 10 L/min. No fever. No abdominal pain. - Related Data Home Medications Medication Instructions Recorded Confirmed Budesonide/Formoterol Fumarate 2 puff INHALATION BID 12/05/18 04/18/19 [Symbicort 160-4.5 Mcg Inhaler] Lorlatinib [Lorbrena] 100 mg PO DAILY 12/05/18 04/18/19 Cholecalciferol (Vitamin D3) 2,000 unit PO DAILY 01/21/19 04/18/19 [Vitamin D3 1,000 Unit Cap] Pantoprazole Sodium [Protonix 40mg 40 mg PO DAILY 01/21/19 04/18/19 tablet] Ipratropium/Albuterol Sulfate 3 ml IH Q6H 01/22/19 04/18/19 [Duoneb 3mL neb] Ferrous Sulfate [Iron] 325 mg PO DAILY 03/23/19 04/18/19 predniSONE [Deltasone 10mg tablet] 10 mg PO DAILY 03/24/19 04/18/19 Allergies Allergy/AdvReac Type Severity Reaction Status Date / Time No Known Allergies Allergy Verified 04/18/19 10:35 [facility] History - Hepatitis A Screen Drug use history?: No High risk sexual behaviors?: No History of sexually transmitted infection?: No Currently employed?: No Childcare worker?: No Do you have indoor plumbing?: Yes Do you have electricity?: Yes Attestation statement:: This patient has been screened for Hepatitis A risk factors. 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 No: Pacemaker Amputation: No Fractures: No - Social History Smoking Status: Former smoker Tobacco Type: cigarettes #Yrs smoked (if former smoker): 35 Alcohol Intake: never Occupational Status: retired Housing: house Household Members: spouse, children Family Hx:: Cancer, Diabetes ROS Obtained: Yes All systems reviewed & no additional complaints - Constitutional Constitutional: Reports system reviewed and no additional complaints, except as docu - Eyes Eyes: Reports system reviewed and no additional complaints, except as docu - ENT Ears, Nose, Mouth, and Throat: Reports system reviewed and no additional complaints, except as docu - Cardiovascular Cardiovascular: Reports system reviewed and no additional complaints, except as docu, Reports as per HPI, Reports chest pain (Tightness from sob.), Denies edema - Respiratory Respiratory: Yes system reviewed and no additional complaints, except as docu, Yes as per HPI, Yes chest congestion, Yes cough, Yes dyspnea on exertion, No coughing up blood, Yes wheezing - Gastrointestinal Gastrointestingal: Reports: system reviewed and no additional complaints, except as docu - Genitourinary Male Genitourinary: Reports system reviewed and no additional complaints, except as docu - Musculoskeletal Musculoskeletal: Reports system reviewed and no additional complaints, except as docu - Integumentary/Breasts Skin/Breast: Reports system reviewed and no additional complaints, except as d ocu - Neurologic Neurologic: Reports system reviewed and no additional complaints, except as docu - Endocrine Endocrine: Reports system reviewed and no additional complaints, except as docu - Hematologic/Lymphatic Henatologic/Lymphatic: Reports system reviewed and no additional complaints, except as docu - Allergic/Immunologic Allergic/Immunologic: Reports system reviewed and no additional complaints, except as docu Physical Exam - General General appearance: alert, anxious (mildly), in distress (mild respiratory distress with tachypnea) - Head Head exam: atraumatic, normocephalic, normal inspection - Eye Eye exam: Present: PERRL, EOMI - ENT ENT exam: Present: mucous membranes moist - Neck Neck exam: Present: trachea midline - Chest Chest inspection: Present: normal inspection, symmetric chest wall rise. Absent: tenderness - Respiratory Respiratory exam: Present: other (Diminished BS bilaterally (RLL>LLL). No wheezing. (+) LLL rhonchi posterior basilar area.) - Cardiovascular Cardiovascular exam: Present: tachycardia - Abdominal Exam Abdominal exam: Present: soft, normal bowel sounds. Absent: distention, tenderness, guarding - Extremities Exam Extremities exam: Present: normal inspection, full ROM. Absent: tenderness, pedal edema - Neurological Exam Neurological exam: Present: alert, oriented X3, CN II-XII intact - Psychiatric Psychiatric exam: Present: anxious (Mildly) - Skin Skin exam: Present: warm, dry, intact. Absent: rash, diaphoresis
[2019-04-18 11:14] LABS: Blood Urea Nitrogen 19 mg/dL (7-18); Calcium 9.7 mg/dL (8.5-10.1); Carbon Dioxide 28 mmol/L (21.0-32.0); Chloride 101 mmol/L (98-107); Glucose 130 mg/dL (74-106); Sodium 136 mmol/L (136-145)
[2019-04-18 11:24] LABS: Basophils # 0.1 K/mm3 (0-0.2); Basophils % 0.8 % (0.1-2.0); Eosinophils # 0.4 K/mm3 (0.0-0.4); Eosinophils % 3.7 % (0.1-12.0); Hematocrit 35.1 % (42.0-52.0); Hemoglobin 11.2 g/dL (14.1-18.0); Lymphocytes # 1.4 K/mm3 (0.7-4.5); Lymphocytes % 13.2 % (10-50); Mean Corpuscular HGB Conc 31.8 g/dL (31.8-35.4); Mean Corpuscular Volume 88.5 fl (80-94); Mean Platelet Volume 7.6 fl (7.4-10.4); Monocytes # 0.4 K/mm3 (0.1-1.0); Monocytes % 4.2 % (1.7-9.3); Neutrophils % 78.1 % (37.0-80.0); Platelet Count 209 K/mm3 (142-424); Red Blood Count 3.97 M/mm3 (4.60-6.20); Red Cell Distribution Width 16.3 % (11.5-17.5); White Blood Count 10.2 K/mm3 (4.8-10.8)
[2019-04-18 11:32] LABS: Activated Partial Thrombo Time 31.2 seconds (23.6-34.0); Prothrombin Time 10.4 seconds (9.4-11.8)
--- NOTE | 2019-04-18 16:54 | History & Physical Report ---
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 Patient has had multiple hospitalizations at this facility over the last month for recurring right pleural effusion. Ultimately patient had a Pleurx drain placed in the right pleural space to allow for outpatient management of the pleural effusion. Effusion is considered malignant. Patient is followed by traffic operator Dr. Jay Jimenez and oncologist Dr. Jeff Sanchez. Over the preceding 24 hours patient had developed progressive dyspnea and this morning when his son only pulled off 200 mL's of fluid from the right pleural space my office was contacted. I recommended the patient come to the emergency department. He was actually scheduled for an appointment with Dr. Jimenez today in [place] where he was to have a CT scan and an office visit. In the emergency department patient underwent evaluation. CT scan showed chronic lung disease with questionable worsening of some right middle lobe interstitial fibrosis versus pneumonitis versus interstitial edema. CT scan also showed persistence of a left pleural effusion which was believed to have increased slightly in size. ER physician contacted Dr. Jimenez who recommended, if possible, thoracentesis of the left pleural effusion with outpatient follow-up. Arrangements were made and patient has undergone thoracentesis of the left pleural effusion which is produced 400 mL's of bloody fluid. I was present during the thoracentesis. There were no complications however patient did not get immediate improvement as he had when thoracentesis had been performed on the right. Past medical history is significant for the adenocarcinoma of the lung that is ALK positive. Cancer diagnosis was made in the fall 2013. 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) - *Cardiovascular Reports shortness of breath with activity, Denies chest pain, Denies chest pain at rest, Denies chest pain with activity, Denies irregular heart rhythm - *Respiratory Reports chest congestion, Reports shortness of breath, Reports shortness of breath with activity, Denies excessive phlegm production, Denies coughing up blood, Denies pain on inspiration, Denies pain with cough - *Gastrointestinal Denies abdominal pain Meds Home Medications Medication Instructions Recorded Confirmed Type Budesonide/Formoterol Fumarate 2 puff INHALATION BID 12/05/18 04/18/19 History [Symbicort 160-4.5 Mcg Inhaler] Lorlatinib [Lorbrena] 100 mg PO DAILY 12/05/18 04/18/19 History Cholecalciferol (Vitamin D3) 2,000 unit PO DAILY 01/21/19 04/18/19 History [Vitamin D3 1,000 Unit Cap] Pantoprazole Sodium [Protonix 40mg 40 mg PO DAILY 01/21/19 04/18/19 History tablet] Ipratropium/Albuterol Sulfate 3 ml IH Q6H 01/22/19 04/18/19 History [Duoneb 3mL neb] Ferrous Sulfate [Iron] 325 mg PO DAILY 03/23/19 04/18/19 History predniSONE [Deltasone 10mg tablet] 10 mg PO DAILY 03/24/19 04/18/19 History Allergies Allergy/AdvReac Type Severity Reaction Status Date / Time No Known Allergies Allergy Verified 04/18/19 10:35 Exam Vital signs and Labs for Last 24 Hours: Temp Pulse Resp BP Pulse Ox 98.2 F 89 89 H 119/66 95 04/18/19 15:50 04/18/19 15:50 04/18/19 15:50 04/18/19 15:50 04/18/19 14:30 Laboratory Results - last 24 hr 04/18/19 10:45: WBC 10.2, RBC 3.97 L, Hgb 11.2 L, Hct 35.1 L, MCV 88.5, MCH 28.2, MCHC 31.8, RDW 16.3, Plt Count 209, MPV 7.6, Neut % (Auto) 78.1, Lymph % (Auto) 13.2, [place] % (Auto) 4.2, Eos % (Auto) 3.7, Baso % (Auto) 0.8, Neut # (Auto) 8.0 H, Lymph # (Auto) 1.4, [place] # (Auto) 0.4, Eos # (Auto) 0.4, Baso # (Auto) 0.1 04/18/19 10:45: PT 10.4, INR 1.00, APTT 31.2 04/18/19 10:45: Sodium 136, Potassium 4.0, Chloride 101, Carbon Dioxide 28, Anion Gap 11.0, BUN 19 H, Creatinine 1.15, Estimated Creat Clear 72, Estimated GFR 63, Est GFR ( Amer) 77, Glucose 130 H, Calcium 9.7, Troponin I < 0.02 04/18/19 10:45: B-Natriuretic Peptide 59 04/18/19 10:45: Lactate 2.3 H 04/18/19 13:45: Troponin I < 0.02 04/18/19 13:45: Lactate 1.2 I & O for Last 24 hours: Intake & Output 04/16/19 04/17/19 04/18/19 04/19/19 11:59 11:59 11:59 11:59 Weight 180 lb Narrative: Patient is sitting on the side of the bed wearing facemask delivering oxygen. He does not look to be in any respiratory distress. He is somewhat disheveled. Pupils are reactive to light. Neck has no jugular venous distention or carotid bruits. Lungs are distant throughout with severely diminished breath sounds at the bases. Heart has a tachycardic rate and rhythm. Abdomen is soft and nontender. Extremities are without edema Assessment and Plan (1) Pleural effusion, left Current visit: Yes Status: Acute Category: Medical Code(s): J90 - Pleural effusion, not elsewhere classified (2) Severe chronic obstructive pulmonary disease Current visit: Yes Status: Acute Category: Medical Code(s): J44.9 - Chronic obstructive pulmonary disease, unspecified (3) Adenocarcinoma of left lung, stage 4 Current visit: Yes Status: Acute Category: Medical Code(s): C34.92 - Malignant neoplasm of unspecified part of left bronchus or lung - Assessment and plan all Dx Assessment and Plan for all problems:: 1. Patient will have serial x-rays to ensure that there is no pneumothorax. 2. Patient will be given IV steroid overnight 3. I had a long discussion with the patient regarding his goals of care. Patient would like to be able to walk with minimal supplemental oxygen (4 L/min). I did broach the subject of hospice but the patient is not ready. His prognosis is poor. At present we will plan for overnight observation with anticipated outpatient follow-up with his traffic operator on Sunday at 10 PM at [facility]
--- NOTE | 2019-04-19 07:16 | Discharge Summary ---
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 Patient has had multiple hospitalizations at this facility over the last month for recurring right pleural effusion. Ultimately patient had a Pleurx drain placed in the right pleural space to allow for outpatient management of the pleural effusion. Effusion is considered malignant. Patient is followed by recruitment assistant Dr. Jay Jimenez and oncologist Dr. Jeff Sanchez. Over the preceding 24 hours patient had developed progressive dyspnea and this morning when his son only pulled off 200 mL's of fluid from the right pleural space my office was contacted. I recommended the patient come to the emergency department. He was actually scheduled for an appointment with Dr. Jimenez today in [place] where he was to have a CT scan and an office visit. In the emergency department patient underwent evaluation. CT scan showed chronic lung disease with questionable worsening of some right middle lobe interstitial fibrosis versus pneumonitis versus interstitial edema. CT scan also showed persistence of a left pleural effusion which was believed to have increased slightly in size. ER physician contacted Dr. Jimenez who recommended, if possible, thoracentesis of the left pleural effusion with outpatient follow-up. Arrangements were made and patient has undergone thoracentesis of the left pleural effusion which is produced 400 mL's of bloody fluid. I was present during the thoracentesis. There were no complications however patient did not get immediate improvement as he had when thoracentesis had been performed on the right. Past medical history is significant for the adenocarcinoma of the lung that is ALK positive. Cancer diagnosis was made in the fall 2013. Patient has been on some form of palliative chemotherapy since that time Hospital Course Hospital Course: Patient was admitted for observation after thoracentesis. Postprocedural chest x-ray showed a 10 to 15% left apical pneumothorax. This was an expiratory film. Follow-up chest x-ray performed 2 hours later showed persistence of the 10 to 15% pneumothorax. Patient remained asymptomatic and actually claims he felt better after thoracentesis. This similar scenario occurred after each right- sided thoracentesis with a notable right apical pneumothorax that would develop. Patient was observed overnight and maintained oxygen saturations between 85 and 94% on nasal cannula via 10 L/min. The following morning, April 19, patient had returned to baseline. He was discharged home. Prior to discharge arrangements were made for patient to have a light weight wheelchair due to his level of dyspnea on exertion and upcoming appointments with pulmonology. He will follow-up with Dr. Jimenez on Sunday, April 21 at 10 AM and his [place] office. It is anticipated he will need at least 5 thanks of portable oxygen. Patient's DME company, [employer], will be contacted to arrange for an additional canister of portable oxygen for the patient to take with him. Objective Vital signs: Temp Pulse Resp BP Pulse Ox 97.8 F 94 H 20 114/63 88 L 04/19/19 03:58 04/19/19 03:58 04/19/19 03:58 04/19/19 03:58 04/19/19 03:58 Narrative: On the day of discharge when I enter the room patient was sleeping comfortably with the head of the bed inclined to 30 degrees. While nasal cannula was in place patient was mouth breathing. He did not appear to be in any distress and was sleeping soundly. He awakened easily. Upon awakening his respiratory rate increased and patient had mild conversational dyspnea. Lungs remain distant throughout and diminished at the bases bilaterally. There were no focal rales, rhonchi, wheezes. Heart had a regular rate and rhythm. Abdomen was thin and soft. Extremity's were there without any edema Results Labs on day of discharge: Labs from last 24 hours 04/18/19 04/18/19 04/18/19 13:45 13:45 10:45 WBC RBC Hgb Hct MCV MCH MCHC RDW Plt Count MPV Neut % (Auto) Lymph % (Auto) [place] % (Auto) Eos % (Auto) Baso % (Auto) Neut # (Auto) Lymph # (Auto) [place] # (Auto) Eos # (Auto) Baso # (Auto) PT INR APTT Sodium Potassium Chloride Carbon Dioxide Anion Gap BUN Creatinine Estimated Creat Clear Estimated GFR Est GFR ( Amer) Glucose Lactate 1.2 2.3 H Calcium Troponin I < 0.02 B-Natriuretic Peptide 04/18/19 04/18/19 04/18/19 10:45 10:45 10:45 WBC RBC Hgb Hct MCV MCH MCHC RDW Plt Count MPV Neut % (Auto) Lymph % (Auto) [place] % (Auto) Eos % (Auto) Baso % (Auto) Neut # (Auto) Lymph # (Auto) [place] # (Auto) Eos # (Auto) Baso # (Auto) PT 10.4 INR 1.00 APTT 31.2 Sodium 136 Potassium 4.0 Chloride 101 Carbon Dioxide 28 Anion Gap 11.0 BUN 19 H Creatinine 1.15 Estimated Creat Clear 72 Estimated GFR 63 Est GFR ( Amer) 77 Glucose 130 H Lactate Calcium 9.7 Troponin I < 0.02 B-Natriuretic Peptide 59 04/18/19 10:45 WBC 10.2 RBC 3.97 L Hgb 11.2 L Hct 35.1 L MCV 88.5 MCH 28.2 MCHC 31.8 RDW 16.3 Plt Count 209 MPV 7.6 Neut % (Auto) 78.1 Lymph % (Auto) 13.2 [place] % (Auto) 4.2 Eos % (Auto) 3.7 Baso % (Auto) 0.8 Neut # (Auto) 8.0 H Lymph # (Auto) 1.4 [place] # (Auto) 0.4 Eos # (Auto) 0.4 Baso # (Auto) 0.1 PT INR APTT Sodium Potassium Chloride Carbon Dioxide Anion Gap BUN Creatinine Estimated Creat Clear Estimated GFR Est GFR ( Amer) Glucose Lactate Calcium Troponin I B-Natriuretic Peptide DS: Diagnosis - Discharge Diagnosis (1) Pleural effusion, left Status: Acute (2) Severe chronic obstructive pulmonary disease Status: Acute (3) Adenocarcinoma of left lung, stage 4 Status: Acute Discharge Plan - Patient Discharge Instructions ACTIVITY: Continue current activity DIET: continue same diet Patient Instructions: Thoracentesis, Pleural Effusion, DI for Chronic Obstructive Pulmonary Disease, DI for Pneumonia -- Adult, DI for Thoracentesis, DI for Surgical Site Infection - Follow up Plan Follow up with: Jay Jimenez MD [Consulting Physician] - 04/21/19 10:00 am Disposition: Home, Self-Senior Living Medications: Home Medications Medication Instructions Recorded Confirmed Type Budesonide/Formoterol Fumarate 2 puff INHALATION BID 12/05/18 04/18/19 History [Symbicort 160-4.5 Mcg Inhaler] Lorlatinib [Lorbrena] 100 mg PO DAILY 12/05/18 04/18/19 History Cholecalciferol (Vitamin D3) 2,000 unit PO DAILY 01/21/19 04/18/19 History [Vitamin D3 1,000 Unit Cap] Pantoprazole Sodium [Protonix 40mg 40 mg PO DAILY 01/21/19 04/18/19 History tablet] Ipratropium/Albuterol Sulfate 3 ml IH Q6H 01/22/19 04/18/19 History [Duoneb 3mL neb] Ferrous Sulfate [Iron] 325 mg PO DAILY 03/23/19 04/18/19 History predniSONE [Deltasone 10mg tablet] 10 mg PO DAILY 03/24/19 04/18/19 History Prescriptions/Medication Reconciliation: Continued Lorlatinib [Lorbrena] 100 mg PO DAILY Budesonide/Formoterol Fumarate [Symbicort 160-4.5 Mcg Inhaler] 2 puff INHALATION BID Cholecalciferol (Vitamin D3) [Vitamin D3 1,000 Unit Cap] 2,000 unit PO DAILY Ipratropium/Albuterol Sulfate [Duoneb 3mL neb] 3 ml IH Q6H Pantoprazole Sodium [Protonix 40mg tablet] 40 mg PO DAILY Ferrous Sulfate [Iron] 325 mg PO DAILY predniSONE [Deltasone 10mg tablet] 10 mg PO DAILY
== END 2019-04-19 10:50 | disposition home or self-care (01) | DRG 187 ==
LOC: ER 10:22 → 2ND 14:52
PROVIDERS: ADMIT Family Medicine; ATTEND Family Medicine
CPT/HCPCS: Q9967

== ENCOUNTER 2019-04-22 14:59 | Inpatient (IN) ==
--- NOTE | 2019-04-22 15:10 | Emergency Department Note ---
ED Disposition Clinical Impression: Acute respiratory failure with hypoxia Disposition: Admitted As Inpatient Condition on Discharge: Serious - Critical Care Critical Care Time: Yes Attestation: On , the high probability of a clinically significant, sudden or life threatening deterioration of the following system(s) required my full and direct attention, intervention and personal management. The time I documented below is in addition to time spent performing reported procedures but includes the following listed in this critical care notation. Total Critical Care Time: 40 Vital system(s) involved:: Respiratory Failure My critical care processes included: Assessment & monitoring of V/S, Initial and Re-exams, Data Review/Interpretation, Coordinating Care, Medication Orders and management, Documentation Medical Decision Making - Aaron Inquiry Pt receiving controlled substance: No Vital Signs: 04/22/19 15:01 04/22/19 15:31 04/22/19 15:36 Temperature 97.8 F Temperature Source Oral Pulse Rate 110 H Pulse Rate [Right] 116 H 107 H Respiratory Rate 26 H 22 Blood Pressure [Right Arm] 166/89 H 141/84 H Blood Pressure Mean [Right Arm] 114 103 Blood Pressure Source [Right Arm] Automatic Cuff Automatic Cuff Blood Pressure Position [Right Arm] Sitting Supine 02 Sat by Pulse Oximetry 89 L 99 Oxygen Delivery Method Room Air Room Air Oxygen Flow Rate (LPM) 15 04/22/19 16:01 04/22/19 16:30 04/22/19 16:58 Temperature Temperature Source Pulse Rate Pulse Rate [Right] 109 H 105 H 97 H Respiratory Rate 24 22 22 Blood Pressure [Right Arm] 142/80 H 130/69 119/68 Blood Pressure Mean [Right Arm] 100 89 85 Blood Pressure Source [Right Arm] Automatic Cuff Automatic Cuff Automatic Cuff Blood Pressure Position [Right Arm] Supine Supine Supine 02 Sat by Pulse Oximetry 99 90 L 91 L Oxygen Delivery Method Room Air Room Air Room Air Oxygen Flow Rate (LPM) 04/22/19 17:05 04/22/19 17:30 04/22/19 18:20 Temperature Temperature Source Pulse Rate Pulse Rate [Right] 96 H 95 H 92 H Respiratory Rate 22 18 Blood Pressure [Right Arm] 119/68 120/70 126/70 Blood Pressure Mean [Right Arm] 85 86 88 Blood Pressure Source [Right Arm] Automatic Cuff Automatic Cuff Automatic Cuff Blood Pressure Position [Right Arm] Sitting Supine Sitting 02 Sat by Pulse Oximetry 91 L 91 L 90 L Oxygen Delivery Method BiPAP BiPAP BiPAP Oxygen Flow Rate (LPM) - Lab Data Lab Results 04/22/19 15:11: Specimen Source L radial, O2 % 65, ABG pH 7.35, ABG pCO2 41.4, ABG pO2 151.3 H, ABG HCO3 22.3, ABG Total CO2 23.6, ABG O2 Saturation 98, ABG Base Excess -3.3 L, Juanito Test Acceptable, Vent Rate 18, Tidal Volume Bipap 16/8 04/22/19 15:45: WBC 8.2, RBC 3.42 L, Hgb 10.1 L, Hct 31.0 L, MCV 90.7, MCH 29.6, MCHC 32.6, RDW 16.9, Plt Count 182, Neut % (Auto) 81.4 H, Lymph % (Auto) 10.8, [place] % (Auto) 4.1, Eos % (Auto) 3.3, Baso % (Auto) 0.4, Neut # (Auto) 6.7, Lymph # (Auto) 0.9, [place] # (Auto) 0.3, Eos # (Auto) 0.3, Baso # (Auto) 0.0, Total Counted 100, Neutrophils % (Manual) 85 H, Band Neutrophils % 1.0, Lymphocytes % (Manual) 9 L, Monocytes % (Manual) 3, Eosinophils % (Manual) 2, Nucleated RBCs 1, Platelet Estimate Normal, Anisocytosis 1+, Macrocytosis 1+ 04/22/19 15:45: Sodium 140, Potassium 4.0, Chloride 103, Carbon Dioxide 27, Anion Gap 14.0, BUN 25 H, Creatinine 1.17, Estimated Creat Clear 70, Estimated GFR 62, Est GFR ( Amer) 75, Glucose 149 H, Calcium 9.3, Total Bilirubin 0.6, AST 86 H, ALT 13, Alkaline Phosphatase 145 H, Troponin I < 0.02, Total Protein 6.9, Albumin 2.3 L, Globulin 4.6 H, Albumin/Globulin Ratio 0.5 L 04/22/19 15:45: Lactate 2.1 H 04/22/19 15:45: B-Natriuretic Peptide 66 Result diagrams: 04/22/19 15:45 04/22/19 15:45 Orders (Tests/Meds): ED MEDICATIONS Generic Name Dose Route Start Last Admin Trade Name Freq PRN Reason Stop Dose Admin Levofloxacin/Dextrose 750 mg in 150 mls @ 100 mls/hr 04/22/19 18:45 04/22/19 18:59 Levofloxacin 750mg/150ml Premix IV 05/06/19 18:44 100 mls/hr Q24H [place]KE Administration Protocol Discontinued Medications Generic Name Dose Route Start Last Admin Trade Name Maximiliano PRN Reason Stop Dose Admin Albuterol/Ipratropium 3 ml 04/22/19 15:12 04/22/19 15:34 Duoneb 3ml Neb IH 04/22/19 15:13 3 ml ONCE ONE Administration Methylprednisolone Sodium Succinate 125 mg 04/22/19 15:12 04/22/19 15:22 Solu-Medrol 125mg/2ml Vial IV 04/22/19 15:13 125 mg ONCE ONE Administration - Radiology Data #1 Image(s): Chest Image Reviewed: Yes I reviewed the patient's radiology image, Yes I discussed the image results w/the radiologist IMPRESSION: Chronic bilateral airspace disease somewhat worse in the upper lobes and small bilateral effusions Dictated By: Juanito Watson MD 04/22/19 1546 - ECG Data Tracing #1 EKG interpreted by Marcos Flores MD: Rhythm: sinus Rate: 106 [place]: normal Ectopy: none Conduction: normal ST Segment Changes: none T Wave Changes: none Q Waves: none No evidence of acute ischemia or injury Baseline artifact and wander present, but I consider the EKG adequate for accurate interpretation. - Physician Consults Physician Consulted: Sherley Wakefield Time: 18:00 Reason -: Admission Comment/Response: Agrees to admit the patient to the hospital. We discussed the patient's clinical information, including history, exam, laboratory and radiology results and ED course. Per hospital procedure, I will write temporary bridge inpatient orders on the patient. Specific orders requested by the admitting physician: We discussed whether to treat with antibiotics given the possible worsening of his chest x-ray. Dr. Lepe prefers just to Levaquin. Continue BiPAP, steroids, nebulizer treatments. - Reevaluation(s) Time: 17:30 Reevaluation #1: Marked improvement on BiPAP Medical Decision Narrative: Oxygen saturation improved to 85-86% on nonrebreather mask, but respirations still labored. BiPAP started. Recent admission reviewed. CTA performed on recent admission: Impression: No evidence of pulmonary embolus. Right-sided chest tube with evacuation of most of the right-sided pleural effusion without a small amount still present. Increase in size of the moderate left-sided pleural effusion. Bilateral lower lobe compressive atelectasis with probable component of consolidation in the right lower lobe which is stable. Severe emphysematous lung changes with honeycomb pattern suggesting end-stage lung disease. There could be some new areas of interstitial process in the posterior right middle lobe which is nonspecific and could be from the dependent atelectasis or perhaps another area of interstitial pneumonitis. No change in the osteoblastic metastatic disease. Dictated By: Lito Brown MD 04/18/19 7404 General Adult HPI - General Chief complaint: Shortness of Breath/Dyspnea Stated complaint: shortness of breath Time Seen by Provider: 04/22/19 15:00 - History of Present Illness HPI narrative: Brought in by ambulance for shortness of breath. Patient states that he has cancer throughout his body, unknown primary. Oncologist is Dr. Jeff Sanchez in [place]. Chronically hypoxic and short of breath. Says his baseline pulse ox runs about 85 to 88% on 10 L nasal cannula oxygen at home for the past couple of months. Increased shortness of breath today. He has a pleural drainage tube in his right chest and had 275 cc drained off today by his son. States he has a cough. Coughed up blood a couple of times. Denies fever. Chest is sore from trying to breathe, otherwise no chest pain. Denies leg pain or swelling. Not aware of any fever. Has a nebulizer at home, but has been unable to use it because of shortness of breath. Patient was just recently admitted a few days ago for shortness of breath. States he has had multiple recent hospital visits for this problem. Patient is brought in by EMS and they report that his oxygen saturation was in the 50s when they arrived on 10 L nasal cannula. He was transported in on 4 L nasal cannula. - Related Data Home Medications Medication Instructions Recorded Confirmed Budesonide/Formoterol Fumarate 2 puff INHALATION BID 12/05/18 04/18/19 [Symbicort 160-4.5 Mcg Inhaler] Lorlatinib [Lorbrena] 100 mg PO DAILY 12/05/18 04/18/19 Cholecalciferol (Vitamin D3) 2,000 unit PO DAILY 01/21/19 04/18/19 [Vitamin D3 1,000 Unit Cap] Pantoprazole Sodium [Protonix 40mg 40 mg PO DAILY 01/21/19 04/18/19 tablet] Ipratropium/Albuterol Sulfate 3 ml IH Q6H 01/22/19 04/18/19 [Duoneb 3mL neb] Ferrous Sulfate [Iron] 325 mg PO DAILY 03/23/19 04/18/19 predniSONE [Deltasone 10mg tablet] 10 mg PO DAILY 03/24/19 04/18/19 Allergies Allergy/AdvReac Type Severity Reaction Status Date / Time No Known Allergies Allergy Verified 04/18/19 10:35 [facility] History - Hepatitis A Screen Attestation statement:: This patient has been screened for Hepatitis A risk factors. 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 No: Pacemaker Amputation: No Fractures: No - Social History Smoking Status: Former smoker Tobacco Type: cigarettes #Yrs smoked (if former smoker): 35 Alcohol Intake: never Occupational Status: retired Housing: house Household Members: spouse, children Family Hx:: Cancer, Diabetes ROS Obtained: Yes All systems reviewed & no additional complaints - Constitutional Constitutional: Denies fever(s) - Cardiovascular Cardiovascular: Reports as per HPI - Respiratory Respiratory: Yes cough, Yes dyspnea, Yes coughing up blood - Gastrointestinal Gastrointestingal: Denies: abdominal pain, vomiting Physical Exam - General General appearance: alert, in distress (respiratory) - Head Head exam: atraumatic, normocephalic - Eye Eye exam: Present: normal appearance, EOMI - ENT ENT exam: Present: normal exam, mucous membranes moist - Neck Neck exam: Present: normal inspection, trachea midline - Chest Chest inspection: Present: other (Pleural catheter right chest) - Respiratory Respiratory exam: Present: accessory muscle use, other (Decreased breath sounds right side, pleural rub) - Cardiovascular Cardiovascular exam: Present: tachycardia, normal heart sounds - Abdominal Exam Abdominal exam: Present: soft, normal bowel sounds. Absent: distention, tenderness - Extremities Exam Extremities exam: Absent: pedal edema, calf tenderness - Neurological Exam Neurological exam: Present: alert, oriented X3 - Psychiatric Psychiatric exam: Present: anxious - Skin Skin exam: Present: warm, dry
[2019-04-22 15:29] LABS: ABG Base Excess -3.3 mmol/L (-2.4-2.3); ABG HCO3 22.3 mmhg (22.0-26.0); ABG Oxygen Saturation 98 % (90-100); ABG PCO2 41.4 mmhg (35.0-45.0); ABG PH 7.35 mmol/L (7.35-7.45); ABG PO2 151.3 mmhg (80-100); ABG TCO2 23.6 mmhg (23-27); Oxygen 65 %
[2019-04-22 15:30] LABS: Allen's Test ACCEPTABLE; Tidal Volume BIPAP 16/8
[2019-04-22 16:22] LABS: Alanine Aminotransferase 13 U/L (12-78); Albumin Level 2.3 gm/dL (3.4-5.0); Albumin/Globulin Ratio 0.5 (1.1-1.8); Alkaline Phosphatase 145 U/L (46-116); Aspartate Amino Transferase 86 U/L (15-37); Bilirubin,Total 0.6 mg/dL (0.2-1.0); Blood Urea Nitrogen 25 mg/dL (7-18); Calcium 9.3 mg/dL (8.5-10.1); Carbon Dioxide 27 mmol/L (21.0-32.0); Chloride 103 mmol/L (98-107); Globulin 4.6 gm/dl (1.3-3.2); Glucose 149 mg/dL (74-106); Sodium 140 mmol/L (136-145); Total Protein,Serum 6.9 gm/dL (6.4-8.2)
[2019-04-22 16:59] LABS: Basophils % 0.4 % (0.1-2.0); Eosinophils # 0.3 K/mm3 (0.0-0.4); Eosinophils % 3.3 % (0.1-12.0); Hemoglobin 10.1 g/dL (14.1-18.0); Lymphocytes # 0.9 K/mm3 (0.7-4.5); Lymphocytes % 10.8 % (10-50); Mean Corpuscular HGB Conc 32.6 g/dL (31.8-35.4); Mean Corpuscular Volume 90.7 fl (80-94); Monocytes # 0.3 K/mm3 (0.1-1.0); Monocytes % 4.1 % (1.7-9.3); Neutrophils # 6.7 K/mm3 (1.8-7.8); Neutrophils % 81.4 % (37.0-80.0); Platelet Count 182 K/mm3 (142-424); Red Blood Count 3.42 M/mm3 (4.60-6.20); Red Cell Distribution Width 16.9 % (11.5-17.5)
[2019-04-22 17:03] LABS: White Blood Count 8.2 K/mm3 (4.8-10.8)
[2019-04-22 17:53] LABS: Eosinophils % 2 % (0-3); Lymphocytes % 9 % (10-50); Monocytes % 3 % (2-9); Neutrophils % 85 % (42-76); Nucleated Red Blood Cells 1; Total Cells Counted 100
[2019-04-22 17:55] LABS: Anisocytosis 1+; Macrocytosis 1+
--- NOTE | 2019-04-23 07:34 | History & Physical Report ---
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 EMS transported the patient to the hospital and it is recorded in the ER note that patient's O2 sats were in the 50s on their initial evaluation. Patient was seen in the emergency department and diagnosed with acute on chronic respiratory failure and placed on BiPAP which improved patient's O2 sats and relieved some of his dyspnea. He was admitted on BiPAP and observed overnight. Patient has had multiple hospitalizations at this facility over the last 4 months for respiratory difficulties and for recurring right pleural effusion. Ultimately patient had a Pleurx drain placed in the right pleural space to allow for outpatient management of the pleural effusion. Effusion is considered malignant. Patient is followed by sociology instructor Dr. Jay Jimenez and oncologist Dr. Jeff Sanchez. His most recent hospitalization was 4 days ago when patient presented to the emergency department with worsening dyspnea that was initially felt to be attributed to an enlarging left pleural effusion. Patient underwent a left-sided thoracentesis which produced 400 mL's of bloody pleural fluid. The relief patient got from thoracentesis is questionable as initially he denied any significant relief. 1 hour after procedure patient believed he noted an improvement in his level of dyspnea. Patient saw Dr. Jimenez on April 21. I reviewed that note through the [facility] portal and it was suggested that patient consider stopping Lobrena. Patient has also been on corticosteroids since December and is weaned from a dose of prednisone 40 mg gradually down to 10 mg. The note from Dr. Jimenez indicated patient may need increased doses of corticosteroids although the patient believes Dr. Jimenez told him he needed to be off steroids. Currently the patient is on BiPAP and appears comfortable. 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 No: Pacemaker Amputation: No Fractures: No - *Social History Educational Level: Completed College Smoking Status: Current every day smoker Tobacco Type: cigarettes #Yrs smoked (if former smoker): 35 Alcohol Intake: never *Occupational Status:: retired Housing: house Household Members: spouse, children *Travel in the last 8 weeks: None - Psychiatric History Expresses thoughts of harming self/others: None Suicide Plan Description: No Plan Family Hx:: Cancer, Heart Attack Review of Systems - Review of Systems Review of systems:: pertinent systems reviewed and negative unless documented below - Constitutional Reports fatigue, Reports lack of energy, Reports malaise, Denies body ache(s), Denies chills, Denies fever(s) - Eyes Reports blind spots - *Cardiovascular Denies chest pain, Denies chest pain at rest - *Respiratory Reports shortness of breath, Reports shortness of breath with activity, Reports coughing up blood, Denies change in phlegm color - *Gastrointestinal Denies abdominal pain - *Genitourinary Denies difficulty urinating - *Musculoskeletal Reports abnormal walking Meds Home Medications Medication Instructions Recorded Confirmed Type Budesonide/Formoterol Fumarate 2 puff INHALATION BID 12/05/18 04/22/19 History [Symbicort 160-4.5 Mcg Inhaler] Lorlatinib [Lorbrena] 100 mg PO DAILY 12/05/18 04/22/19 History Cholecalciferol (Vitamin D3) 2,000 unit PO DAILY 01/21/19 04/22/19 History [Vitamin D3 1,000 Unit Cap] Pantoprazole Sodium [Protonix 40mg 40 mg PO DAILY 01/21/19 04/22/19 History tablet] Ipratropium/Albuterol Sulfate 3 ml IH Q6H 01/22/19 04/22/19 History [Duoneb 3mL neb] Ferrous Sulfate [Iron] 325 mg PO DAILY 03/23/19 04/22/19 History predniSONE [Deltasone 10mg tablet] 10 mg PO DAILY 03/24/19 04/18/19 History Allergies Allergy/AdvReac Type Severity Reaction Status Date / Time No Known Allergies Allergy Verified 04/18/19 10:35 Exam Vital signs and Labs for Last 24 Hours: Temp Pulse Resp BP Pulse Ox 98.4 F 88 19 123/65 95 04/23/19 03:58 04/23/19 06:03 04/23/19 03:58 04/23/19 03:58 04/23/19 03:58 Laboratory Results - last 24 hr 04/22/19 15:11: Specimen Source L radial, O2 % 65, ABG pH 7.35, ABG pCO2 41.4, ABG pO2 151.3 H, ABG HCO3 22.3, ABG Total CO2 23.6, ABG O2 Saturation 98, ABG Base Excess -3.3 L, Juanito Test Acceptable, Vent Rate 18, Tidal Volume Bipap 16/8 04/22/19 15:45: WBC 8.2, RBC 3.42 L, Hgb 10.1 L, Hct 31.0 L, MCV 90.7, MCH 29.6, MCHC 32.6, RDW 16.9, Plt Count 182, Neut % (Auto) 81.4 H, Lymph % (Auto) 10.8, [place] % (Auto) 4.1, Eos % (Auto) 3.3, Baso % (Auto) 0.4, Neut # (Auto) 6.7, Lymph # (Auto) 0.9, [place] # (Auto) 0.3, Eos # (Auto) 0.3, Baso # (Auto) 0.0, Total C ounted 100, Neutrophils % (Manual) 85 H, Band Neutrophils % 1.0, Lymphocytes % (Manual) 9 L, Monocytes % (Manual) 3, Eosinophils % (Manual) 2, Nucleated RBCs 1, Platelet Estimate Normal, Anisocytosis 1+, Macrocytosis 1+ 04/22/19 15:45: Sodium 140, Potassium 4.0, Chloride 103, Carbon Dioxide 27, Anion Gap 14.0, BUN 25 H, Creatinine 1.17, Estimated Creat Clear 70, Estimated GFR 62, Est GFR ( Amer) 75, Glucose 149 H, Calcium 9.3, Total Bilirubin 0.6, AST 86 H, ALT 13, Alkaline Phosphatase 145 H, Troponin I < 0.02, Total Protein 6.9, Albumin 2.3 L, Globulin 4.6 H, Albumin/Globulin Ratio 0.5 L 04/22/19 15:45: Lactate 2.1 H 04/22/19 15:45: B-Natriuretic Peptide 66 04/22/19 20:14: Lactate 1.8 I & O for Last 24 hours: Intake & Output 04/20/19 04/21/19 04/22/19 04/23/19 11:59 11:59 11:59 11:59 Intake Total 436 / 436 Output Total 380 / 380 Balance / Weight 171 lb 1 oz Narrative: Patient is sitting up in bed with BiPAP on and appears comfortable. There is no increased work of breathing at rest. Patient does have mild conversational dyspnea even with BiPAP on. Head exam reveals no lesions. Oropharynx is dry. Neck has no carotid bruit. Lungs have fair aeration with dry crackles in the right midlung and diminished breath sounds at the bases. Anterior lung reynolds are clear. Heart has a regular rate and rhythm. Abdomen is thin and soft. Extremities are without edema. Assessment and Plan (1) Acute respiratory failure with hypoxia Current visit: Yes Status: Acute Category: Medical Code(s): J96.01 - Acute respiratory failure with hypoxia (2) Acute exacerbation of chronic obstructive airways disease Current visit: No Status: Acute Category: Medical Code(s): J44.1 - Chronic obstructive pulmonary disease with (acute) exacerbation (3) Adenocarcinoma of left lung, stage 4 Current visit: No Status: Acute Category: Medical Code(s): C34.92 - Malignant neoplasm of unspecified part of left bronchus or lung (4) Bilateral pleural effusion Current visit: No Status: Acute Category: Medical Code(s): J90 - Pleural effusion, not elsewhere classified (5) Interstitial pulmonary fibrosis Current visit: No Status: Acute Category: Medical Code(s): J84.10 - Pulmonary fibrosis, unspecified (6) Pneumonitis Current visit: No Status: Acute Category: Medical Code(s): J18.9 - Pneumonia, unspecified organism - Assessment and plan all Dx Assessment and Plan for all problems:: 1. Patient will be started on Solu-Medrol 1 g daily for 3 days. Continue attempts to increase pulmonary toilet. I will try to reach Dr. Jimenez today. Patient's prognosis overall is poor and he is a hospice candidate although at this time he does not want to involve hospice.
--- NOTE | 2019-04-23 08:03 | Pharmacy Consult Notes ---
[facility] Pharmacy VTE Monitoring - Patient Demographics Admission date: 04/23/19 Report Date: 04/23/19 Time: 08:02 Allergies/Adverse Reactions: Patient Allergies No Known Allergies Allergy (Verified 04/18/19 10:35) Height: 1.85 m Weight: 77.593 kg Patient Problems: Current Active Problems (Updated 04/23/19 @ 07:38 by Jose Alejandro Wakefield MD) Acute respiratory failure with hypoxia (Acute) - VTE Risk Labs: VTE Related Lab Results Hgb 10.1 g/dL (14.1-18.0) L 04/22/19 15:45 Hct 31.0 % (42.0-52.0) L 04/22/19 15:45 Plt Count 182 K/mm3 (142-424) 04/22/19 15:45 BUN 25 mg/dL (7-18) H 04/22/19 15:45 Creatinine 1.17 mg/dL (0.70-1.30) 04/22/19 15:45 Estimated Creat Clear 70 mL/min (50-200) 04/22/19 15:45 Was VTE Risk Assessment Performed: Yes VTE Score: 5 VTE Risk Level: Low Risk Clinical Trial Participant: No - Prophylaxis VTE Prophylaxis Ordered?: Yes Types of VTE Prophylaxis: TEDS Knee High
--- NOTE | 2019-04-23 16:42 | Progress Note ---
Internal Medicine - PN: Subj *Date: 04/23/19 *Time: 16:40 Interval history: Patient has no complaints this afternoon. I stopped and did let the patient know I spoke with both his it data architect and oncologist. Both Dr. Jimenez and Dr. Sanchez are in agreement with the plan for high-dose steroids and discontinuation of the Lobrena. Patient has been transitioned from BiPAP to Vapotherm. Dr. Jimenez did recommend trying to get him back to nasal cannula at least 10 L/min as quickly as possible. One way to do this may be a conserving device called an Oxymizer and I have already contacted [facility] about this device and more information will be available tomorrow. I did speak with the patient regarding CODE STATUS. In speaking with Dr. Sanchez at this time because of the patient's medical fragility he is not a candidate for any other form of chemotherapy for his cancer. At present patient still wishes to be a full code although admits he does not "want to live on a machine". I have asked him to discuss his wishes with his family. Exam Vital signs and Labs for Last 24 Hours: Temp Pulse Resp BP Pulse Ox 97.5 F L 106 H 21 123/70 87 L 04/23/19 15:26 04/23/19 15:26 04/23/19 15:26 04/23/19 15:26 04/23/19 15:26 Laboratory Results - last 24 hr 04/22/19 15:45: WBC 8.2, RBC 3.42 L, Hgb 10.1 L, Hct 31.0 L, MCV 90.7, MCH 29.6, MCHC 32.6, RDW 16.9, Plt Count 182, Neut % (Auto) 81.4 H, Lymph % (Auto) 10.8, [place] % (Auto) 4.1, Eos % (Auto) 3.3, Baso % (Auto) 0.4, Neut # (Auto) 6.7, Lymph # (Auto) 0.9, [place] # (Auto) 0.3, Eos # (Auto) 0.3, Baso # (Auto) 0.0, Total Counted 100, Neutrophils % (Manual) 85 H, Band Neutrophils % 1.0, Lymphocytes % (Manual) 9 L, Monocytes % (Manual) 3, Eosinophils % (Manual) 2, Nucleated RBCs 1, Platelet Estimate Normal, Anisocytosis 1+, Macrocytosis 1+ 04/22/19 15:45: B-Natriuretic Peptide 66 04/22/19 20:14: Lactate 1.8 I & O for Last 24 hours: Intake & Output 04/21/19 04/22/19 04/23/19 04/24/19 11:59 11:59 11:59 11:59 Intake Total 676 / 676 240 / 240 Output Total 380 / 380 Balance 296 / 296 240 / 240 Weight 170 lb 170 lb 0.01 oz Assessment and Plan (1) Acute respiratory failure with hypoxia Current visit: Yes Status: Acute Category: Medical Code(s): J96.01 - Acute respiratory failure with hypoxia (2) Acute exacerbation of chronic obstructive airways disease Current visit: No Status: Acute Category: Medical Code(s): J44.1 - Chronic obstructive pulmonary disease with (acute) exacerbation (3) Adenocarcinoma of left lung, stage 4 Current visit: No Status: Acute Category: Medical Code(s): C34.92 - Malignant neoplasm of unspecified part of left bronchus or lung (4) Bilateral pleural effusion Current visit: No Status: Acute Category: Medical Code(s): J90 - Pleural effusion, not elsewhere classified (5) Interstitial pulmonary fibrosis Current visit: No Status: Acute Category: Medical Code(s): J84.10 - Pulmonary fibrosis, unspecified (6) Pneumonitis Current visit: No Status: Acute Category: Medical Code(s): J18.9 - Pneumonia, unspecified organism
--- NOTE | 2019-04-24 07:00 | Progress Note ---
Internal Medicine - PN: Subj *Date: 04/24/19 *Time: 06:57 Interval history: Patient has no new complaints this morning. He feels like his activity tolerance has improved slightly compared to yesterday evening. It is been about 12 hours since he produced any bloody sputum with his cough. O2 sats remain in the mid 80s or higher on Vapotherm with an FiO2 of 65%. Exam Vital signs and Labs for Last 24 Hours: Temp Pulse Resp BP Pulse Ox 97.8 F 95 H 20 136/72 88 L 04/24/19 04:00 04/24/19 06:21 04/24/19 04:00 04/24/19 04:00 04/24/19 06:21 I & O for Last 24 hours: Intake & Output 04/21/19 04/22/19 04/23/19 04/24/19 11:59 11:59 11:59 11:59 Intake Total 676 / 676 480 / 480 Output Total 380 / 380 1000 / 1000 Balance 296 / 296 -520 / -520 Weight 170 lb 170 lb 1 oz Microbiology Reports for the Last 24 Hours: Microbiology 04/23/19 20:08 Sputum - Expectorated Sputum Gram Stain - Final Narrative: Patient appears relatively comfortable. He is using some abdominal muscles to aid with inspiration and expiration. Lungs are clear to auscultation anteriorly with dry crackles in the right midlung posteriorly and left base posteriorly. Heart rate is tachycardic. Extremities are without edema Assessment and Plan (1) Acute respiratory failure with hypoxia Current visit: Yes Status: Acute Category: Medical Code(s): J96.01 - Acute respiratory failure with hypoxia (2) Acute exacerbation of chronic obstructive airways disease Current visit: No Status: Acute Category: Medical Code(s): J44.1 - Chronic obstructive pulmonary disease with (acute) exacerbation (3) Adenocarcinoma of left lung, stage 4 Current visit: No Status: Acute Category: Medical Code(s): C34.92 - Malignant neoplasm of unspecified part of left bronchus or lung (4) Bilateral pleural effusion Current visit: No Status: Acute Category: Medical Code(s): J90 - Pleural effusion, not elsewhere classified (5) Interstitial pulmonary fibrosis Current visit: No Status: Acute Category: Medical Code(s): J84.10 - Pulmonary fibrosis, unspecified (6) Pneumonitis Current visit: No Status: Acute Category: Medical Code(s): J18.9 - Pneumonia, unspecified organism (7) Chronic respiratory failure Current visit: Yes Status: Acute Category: Medical Code(s): J96.10 - Chronic respiratory failure, unspecified whether with hypoxia or hypercapnia - Assessment and plan all Dx Assessment and Plan for all problems:: Begin weaning from Vapotherm back to patient's nasal cannula of 10 L/min. I spoke with [facility] yesterday about an Oxymizer device for the patient. Continue high-dose steroids.
--- NOTE | 2019-04-25 07:03 | Progress Note ---
Internal Medicine - PN: Subj *Date: 04/25/19 *Time: 07:01 Interval history: Patient reports very little change since yesterday. Yesterday evening he actually felt worse as he struggled with attempts to wean Vapotherm yesterday. Overnight he has been weaned a little more to an FiO2 of 55%. His son removed another 250 mL's of clear pleural fluid from his Pleurx drain yesterday afternoon. Exam Vital signs and Labs for Last 24 Hours: Temp Pulse Resp BP Pulse Ox 97.7 F 88 21 134/66 93 L 04/25/19 03:56 04/25/19 05:45 04/25/19 03:56 04/25/19 03:56 04/25/19 05:45 I & O for Last 24 hours: Intake & Output 04/22/19 04/23/19 04/24/19 04/25/19 11:59 11:59 11:59 11:59 Intake Total 676 / 676 630 / 630 940 / 940 Output Total 380 / 380 1000 / 1000 1575 / 1575 Balance 296 / 296 -370 / -370 -635 / -635 Weight 170 lb 170 lb 1 oz 167 lb 6 oz Microbiology Reports for the Last 24 Hours: Microbiology 04/22/19 16:50 Blood Blood Culture - Preliminary NO GROWTH AFTER 48 HOURS 04/22/19 16:50 Blood Blood Culture - Preliminary NO GROWTH AFTER 48 HOURS Narrative: When I enter the room he appears comfortable sitting up in bed without any significant respiratory distress. Almost immediately upon awakening he has noti ceable increase in his respiratory rate. Lung exam reveals clear anterior reynolds although distant. Posteriorly he has dry crackles in the right base and on the left has diminished breath sounds from the base of the left lung to a third of the way up posteriorly. Heart has a regular rate and rhythm Assessment and Plan (1) Acute respiratory failure with hypoxia Current visit: Yes Status: Acute Category: Medical Code(s): J96.01 - Acute respiratory failure with hypoxia (2) Acute exacerbation of chronic obstructive airways disease Current visit: No Status: Acute Category: Medical Code(s): J44.1 - Chronic obstructive pulmonary disease with (acute) exacerbation (3) Adenocarcinoma of left lung, stage 4 Current visit: No Status: Acute Category: Medical Code(s): C34.92 - Malignant neoplasm of unspecified part of left bronchus or lung (4) Bilateral pleural effusion Current visit: No Status: Acute Category: Medical Code(s): J90 - Pleural effusion, not elsewhere classified (5) Interstitial pulmonary fibrosis Current visit: No Status: Acute Category: Medical Code(s): J84.10 - Pulmonary fibrosis, unspecified (6) Pneumonitis Current visit: No Status: Acute Category: Medical Code(s): J18.9 - Pneumonia, unspecified organism (7) Chronic respiratory failure Current visit: Yes Status: Acute Category: Medical Code(s): J96.10 - Chronic respiratory failure, unspecified whether with hypoxia or hypercapnia - Assessment and plan all Dx Assessment and Plan for all problems:: Today's patient's last dose of Solu-Medrol 1 g intravenously before weaning. He has had very little improvement in his overall condition. His prognosis remains poor. With patient's consent I am consulting hospice.
--- NOTE | 2019-04-26 08:26 | Progress Note ---
Internal Medicine - PN: Subj *Date: 04/26/19 *Time: 08:23 Interval history: Patient was evaluated by hospice yesterday. Plan at this time will be for patient to stay for the weekend with reassessment by hospice on Sunday. He remains on Vapotherm with an FiO2 of 60%. He is using morphine sparingly but does report improvement in anxiety and breathlessness with use of morphine. Exam Vital signs and Labs for Last 24 Hours: Temp Pulse Resp BP Pulse Ox 97.7 F 97 H 24 121/60 81 L 04/26/19 07:52 04/26/19 07:52 04/26/19 07:52 04/26/19 07:52 04/26/19 07:52 I & O for Last 24 hours: Intake & Output 04/23/19 04/24/19 04/25/19 04/26/19 11:59 11:59 11:59 11:59 Intake Total 676 / 676 630 / 630 1180 / 1180 480 / 480 Output Total 380 / 380 1000 / 1000 1575 / 1575 1475 / 1475 Balance 296 / 296 -370 / -370 -395 / -395 -995 / -995 Weight 170 lb 170 lb 1 oz 167 lb 6 oz 167 lb 6 oz Microbiology Reports for the Last 24 Hours: Microbiology 04/23/19 20:08 Sputum - Expectorated Sputum Gram Stain - Final 04/23/19 20:08 Sputum - Expectorated Sputum Sputum Culture - Preliminary Narrative: Patient is awake and alert. He has mild conversational dyspnea. Lungs are clear anteriorly with some dry crackles at the right base and left midlung. Heart has a rapid rate and rhythm. Patient can move all extremities and there is no edema. Assessment and Plan (1) Acute respiratory failure with hypoxia Current visit: Yes Status: Acute Category: Medical Code(s): J96.01 - Acute respiratory failure with hypoxia (2) Acute exacerbation of chronic obstructive airways disease Current visit: No Status: Acute Category: Medical Code(s): J44.1 - Chronic obstructive pulmonary disease with (acute) exacerbation (3) Adenocarcinoma of left lung, stage 4 Current visit: No Status: Acute Category: Medical Code(s): C34.92 - Malignant neoplasm of unspecified part of left bronchus or lung (4) Bilateral pleural effusion Current visit: No Status: Acute Category: Medical Code(s): J90 - Pleural effusion, not elsewhere classified (5) Interstitial pulmonary fibrosis Current visit: No Status: Acute Category: Medical Code(s): J84.10 - Pulmonary fibrosis, unspecified (6) Pneumonitis Current visit: No Status: Acute Category: Medical Code(s): J18.9 - Pneumonia, unspecified organism (7) Chronic respiratory failure Current visit: Yes Status: Acute Category: Medical Code(s): J96.10 - Chronic respiratory failure, unspecified whether with hypoxia or hypercapnia - Assessment and plan all Dx Assessment and Plan for all problems:: Patient will transition to oral steroids today. He is going to attempt to get out of bed and sit in the chair some. Patient had a busy day yesterday with visitors. Continue to use morphine as needed. Goal of care is to keep the patient comfortable
--- NOTE | 2019-04-27 09:06 | Progress Note ---
Internal Medicine - PN: Subj *Date: 04/27/19 *Time: 09:04 Interval history: Patient is in good spirits this morning. Feels a little worn out from yesterday-had quite a bit of family members and visiting. He also has a little bit of abdominal/right lower chest pain from his drain placement. Otherwise is eating breakfast well. Exam Vital signs and Labs for Last 24 Hours: Temp Pulse Resp BP Pulse Ox 97.6 F 95 H 22 129/67 87 L 04/27/19 07:58 04/27/19 08:48 04/27/19 08:48 04/27/19 07:58 04/27/19 08:48 I & O for Last 24 hours: Intake & Output 04/24/19 04/25/19 04/26/19 04/27/19 11:59 11:59 11:59 11:59 Intake Total 630 / 630 1180 / 1180 480 / 480 730 / 730 Output Total 1000 / 1000 1575 / 1575 1475 / 1475 725 / 725 Balance -370 / -370 -395 / -395 -995 / -995 5 / 5 Weight 170 lb 1 oz 167 lb 6 oz 167 lb 6 oz 170 lb 5 oz Microbiology Reports for the Last 24 Hours: Microbiology 04/23/19 20:08 Sputum - Expectorated Sputum Gram Stain - Final 04/23/19 20:08 Sputum - Expectorated Sputum Sputum Culture - Final Normal Respiratory Alba Narrative: Baseline dyspnea noted. Lung excursion is diminished as previously noted. Right sided lower chest dressing from his Pleur-evac drain is intact. Air movement is symmetric. Heart rate regular. Abdomen soft. Distal perfusion is preserved. Patient is alert. Oriented. Cranial nerves intact. No JVD. Oropharynx is clear Assessment and Plan (1) Acute respiratory failure with hypoxia Current visit: Yes Status: Acute Category: Medical Code(s): J96.01 - Acute respiratory failure with hypoxia (2) Acute exacerbation of chronic obstructive airways disease Current visit: No Status: Acute Category: Medical Code(s): J44.1 - Chronic obstructive pulmonary disease with (acute) exacerbation (3) Adenocarcinoma of left lung, stage 4 Current visit: No Status: Acute Category: Medical Code(s): C34.92 - Malignant neoplasm of unspecified part of left bronchus or lung (4) Bilateral pleural effusion Current visit: No Status: Acute Category: Medical Code(s): J90 - Pleural effusion, not elsewhere classified (5) Interstitial pulmonary fibrosis Current visit: No Status: Acute Category: Medical Code(s): J84.10 - Pulmonary fibrosis, unspecified (6) Pneumonitis Current visit: No Status: Acute Category: Medical Code(s): J18.9 - Pneumonia, unspecified organism (7) Chronic respiratory failure Current visit: Yes Status: Acute Category: Medical Code(s): J96.10 - Chronic respiratory failure, unspecified whether with hypoxia or hypercapnia - Assessment and plan all Dx Assessment and Plan for all problems:: Patient is significantly compromised but at baseline. Plan remains to enroll patient in hospice either at a medical care facility or at home with high flow oxygen depending on his preference and also hospice capability.
--- NOTE | 2019-04-28 07:44 | Progress Note ---
Internal Medicine - PN: Subj *Date: 04/28/19 *Time: 07:38 Interval history: Patient started to desat on Vapotherm yesterday evening and was placed back on BiPAP. This morning he admits he does not feel well with increased breathlessness and weakness Exam Vital signs and Labs for Last 24 Hours: Temp Pulse Resp BP Pulse Ox 98.1 F 108 H 24 147/81 H 92 L 04/28/19 04:00 04/28/19 05:56 04/28/19 04:00 04/28/19 04:00 04/28/19 06:01 I & O for Last 24 hours: Intake & Output 04/25/19 04/26/19 04/27/19 04/28/19 11:59 11:59 11:59 11:59 Intake Total 1180 / 1180 480 / 480 730 / 730 120 / 120 Output Total 1575 / 1575 1475 / 1475 725 / 725 600 / 600 Balance -395 / -395 -995 / -995 5 / 5 -480 / -480 Weight 167 lb 6 oz 167 lb 6 oz 170 lb 5 oz 170 lb 13.732 oz Microbiology Reports for the Last 24 Hours: Microbiology 04/22/19 16:50 Blood Blood Culture - Final NO GROWTH AFTER 5 DAYS 04/22/19 16:50 Blood Blood Culture - Final NO GROWTH AFTER 5 DAYS 04/23/19 20:08 Sputum - Expectorated Sputum Gram Stain - Final 04/23/19 20:08 Sputum - Expectorated Sputum Sputum Culture - Final Normal Respiratory Alba Narrative: Even on BiPAP patient has increased respiratory rate. Inspiration is shallow and aeration is poor. Lung sounds are diminished at the bases left more than right. Heart has a rapid rate and rhythm. Assessment and Plan (1) Acute respiratory failure with hypoxia Current visit: Yes Status: Acute Category: Medical Code(s): J96.01 - Acute respiratory failure with hypoxia (2) Acute exacerbation of chronic obstructive airways disease Current visit: No Status: Acute Category: Medical Code(s): J44.1 - Chronic obstructive pulmonary disease with (acute) exacerbation (3) Adenocarcinoma of left lung, stage 4 Current visit: No Status: Acute Category: Medical Code(s): C34.92 - Malignant neoplasm of unspecified part of left bronchus or lung (4) Bilateral pleural effusion Current visit: No Status: Acute Category: Medical Code(s): J90 - Pleural effusion, not elsewhere classified (5) Interstitial pulmonary fibrosis Current visit: No Status: Acute Category: Medical Code(s): J84.10 - Pulmonary fibrosis, unspecified (6) Pneumonitis Current visit: No Status: Acute Category: Medical Code(s): J18.9 - Pneumonia, unspecified organism (7) Chronic respiratory failure Current visit: Yes Status: Acute Category: Medical Code(s): J96.10 - Chronic respiratory failure, unspecified whether with hypoxia or hypercapnia - Assessment and plan all Dx Assessment and Plan for all problems:: Patient is deteriorating. He will be given morphine for air hunger and anxiety. He is a candidate for the hospice care center.
--- NOTE | 2019-04-28 20:07 | Death Note ---
Pronouncement Note - Date and Time of Date of : 04/28/19 Time of : 19:47 - PCOD Preliminary cause of : Acute respiratory failure - Summary Additional details: lung cancer - Additional Data Confirmation of : no pulse, no respirations, no heart sounds, pupils fixed and dilated Attending/PCP notified?: Yes Attending physician: Jose Alejandro Wakefield MD Was code activated?: No Autopsy requested?: No land examiner notified?: No Organ bank notified?: Yes Advance directives: Yes
--- NOTE | 2019-05-01 07:20 | Discharge Summary ---
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 EMS transported the patient to the hospital and it is recorded in the ER note that patient's O2 sats were in the 50s on their initial evaluation. Patient was seen in the emergency department and diagnosed with acute on chronic respiratory failure and placed on BiPAP which improved patient's O2 sats and relieved some of his dyspnea. He was admitted on BiPAP and observed overnight. Patient has had multiple hospitalizations at this facility over the last 4 months for respiratory difficulties and for recurring right pleural effusion. Ultimately patient had a Pleurx drain placed in the right pleural space to allow for outpatient management of the pleural effusion. Effusion is considered malignant. Patient is followed by clothing man Dr. Jay Jimenez and oncologist Dr. Jeff Sanchez. His most recent hospitalization was 4 days ago when patient presented to the emergency department with worsening dyspnea that was initially felt to be attributed to an enlarging left pleural effusion. Patient underwent a left-sided thoracentesis which produced 400 mL's of bloody pleural fluid. The relief patient got from thoracentesis is questionable as initially he denied any significant relief. 1 hour after procedure patient believed he noted an improvement in his level of dyspnea. Patient saw Dr. Jimenez on April 21. I reviewed that note through the [facility] portal and it was suggested that patient consider stopping Lobrena. Patient has also been on corticosteroids since December and is weaned from a dose of prednisone 40 mg gradually down to 10 mg. The note from Dr. Jimenez indicated patient may need increased doses of corticosteroids although the patient believes Dr. Jimenez told him he needed to be off steroids. Currently the patient is on BiPAP and appears comfortable. Hospital Course Hospital Course: Patient was admitted and felt to have pneumonitis either caused by his adenocarcinoma of the lung or possibly his oral antineoplastic agent, Lobrena. Patient was placed on high-dose Solu-Medrol 1 g IV daily. When admitted he was requiring BiPAP but was able to be transition to Vapotherm. Over initial 48 hours of hospitalization patient did not show any signs of improvement and continued to require high flow oxygen via noninvasive ventilation. Attempts made to wean to nasal cannula were unsuccessful. PRN morphine was ordered to aid with air hunger and breathlessness. On April 25 hospice consultation was placed. Patient remained stable over April 26 in the financial professional of April 27. While he did not show signs of improvement he showed very little signs of deterioration. However on the evening of April 27 patient's breathlessness acutely worsened. He was placed back on BiPAP. The following morning patient was reevaluated by hospice who recommended scheduled morphine. Morphine did aid some of his breathlessness but as the day progressed he continued to decline. Patient ultimately on the evening of April 28. Objective Vital signs: Temp Pulse Resp BP Pulse Ox 98.6 F 102 H 28 H 128/70 94 L 04/28/19 15:39 04/28/19 15:39 04/28/19 15:39 04/28/19 15:39 04/28/19 15:39 DS: Diagnosis - Discharge Diagnosis (1) Acute respiratory failure with hypoxia Status: Acute (2) Acute exacerbation of chronic obstructive airways disease Status: Acute (3) Adenocarcinoma of left lung, stage 4 Status: Acute (4) Bilateral pleural effusion Status: Acute (5) Interstitial pulmonary fibrosis Status: Acute (6) Pneumonitis Status: Acute (7) Chronic respiratory failure Status: Acute Discharge Plan - Patient Discharge Instructions ACTIVITY: Continue current activity DIET: continue same diet Patient Instructions: Respiratory Failure - Follow up Plan Disposition: Home Medications: Home Medications Medication Instructions Recorded Confirmed Type Budesonide/Formoterol Fumarate 2 puff INHALATION BID 12/05/18 04/22/19 History [Symbicort 160-4.5 Mcg Inhaler] Lorlatinib [Lorbrena] 100 mg PO DAILY 12/05/18 04/22/19 History Cholecalciferol (Vitamin D3) 2,000 unit PO DAILY 01/21/19 04/22/19 History [Vitamin D3 1,000 Unit Cap] Pantoprazole Sodium [Protonix 40mg 40 mg PO DAILY 01/21/19 04/22/19 History tablet] Ipratropium/Albuterol Sulfate 3 ml IH Q6H 01/22/19 04/22/19 History [Duoneb 3mL neb] Ferrous Sulfate [Iron] 325 mg PO DAILY 03/23/19 04/22/19 History predniSONE [Deltasone 10mg tablet] 10 mg PO DAILY 03/24/19 04/23/19 History Tramadol HCl [Tramadol 50mg 50 mg PO TIDP PRN 04/23/19 04/23/19 History Tab] Prescriptions/Medication Reconciliation: No Action Lorlatinib [Lorbrena] 100 mg PO DAILY Budesonide/Formoterol Fumarate [Symbicort 160-4.5 Mcg Inhaler] 2 puff INHALATION BID Cholecalciferol (Vitamin D3) [Vitamin D3 1,000 Unit Cap] 2,000 unit PO DAILY Ipratropium/Albuterol Sulfate [Duoneb 3mL neb] 3 ml IH Q6H Tramadol HCl [Tramadol 50mg Tab] 50 mg PO TIDP PRN PRN Reason: PAIN Pantoprazole Sodium [Protonix 40mg tablet] 40 mg PO DAILY Ferrous Sulfate [Iron] 325 mg PO DAILY predniSONE [Deltasone 10mg tablet] 10 mg PO DAILY - Problem Reconciliation Problems Reviewed?: Yes
== END 2019-04-28 23:30 | disposition expired | DRG 180 ==
LOC: ER 14:59 → 2ND 14:59 → OBSVTOIN 19:54 → 2ND 19:55
PROVIDERS: ADMIT Internal Medicine Adolescent Medicine; ATTEND Family Medicine
CPT/HCPCS: 71010; 71045; 80053; 82803; 83605; 83880; 84484; 85007; 85014; 85018; 85048; 85049; 87040; 87070; 87205; 93005; 94640; 94660; 94760; 94761; 96374; 99285; J1956